=== PATIENT | male | born 1960 | race Caucasian/White ===

== ENCOUNTER 2022-02-04 13:16 | Inpatient (IN) | payer OTHER, SELFPAY ==
[~2022-02-04] VITALS: Ht 172.7 cm; Wt 110.7 kg
[2022-02-04 13:19] VITALS: BP 153/79
--- NOTE | 2022-02-04 13:43 | NUR ---
PATIENT PRESENTS TO ED WITH SPONTANEOUS, INVOLUNTARY MUSCLE MOVEMENTS OF HIS LEFT LEG AND LEFT ARM. PT STATES HE CANT CONTROL THEM. DENIES N/V/D; SKIN IS PINK/WARM/DRY; AAOX4 WITH EVEN; UNSTEADY GAIT; VSS; PATIENT POSITIONED FOR COMFORT; HOB ELEVATED; BEDRAILS UP X2; BED DOWN. ER MD MADE AWARE OF PT STATUS. MED HX: ARTHRITIS MEDS: PREGABALIN
[2022-02-04] MEDS ORDERED: diazePAM 5 MG TAB PO ONE (14:05)
--- NOTE | 2022-02-04 14:14 | NUR ---
DR PHAM AT BEDSIDE EXAMINING PT
[2022-02-04] MEDS ORDERED: diphenhydrAMINE 50 MG/ML VIAL IVP ONE (14:25)
[2022-02-04 14:41] LABS: APPEARANCE,URINE CLEAR (CLEAR); BILIRUBIN,URINE 2+ (NEGATIVE); BLOOD, URINE 2+ (NEGATIVE); LEUKOCYTE ESTERASE ,URINE NEGATIVE (NEGATIVE); NITRITE, URINE NEGATIVE (NEGATIVE); UGLUCOSE NEGATIVE (NEGATIVE)
--- NOTE | 2022-02-04 14:44 | NUR ---
LAB AT BEDSIDE
[2022-02-04 14:45] LABS: COLOR,URINE AMBER (YELLOW)
[2022-02-04 14:54] LABS: RBC,URINE 0-5 /HPF (0-5); WBC,URINE 0-5 /HPF (0-5)
[2022-02-04 14:55] LABS: BARBITURATE, URINE NEGATIVE ng/ml (NEG <=200); BENZODIAZEPINE, URINE NEGATIVE ng/mL (NEG <=200); CANNABINOID, URINE POSITIVE ng/mL (NEG <=50); COCAINE, URINE NEGATIVE ng/mL (NEG <=300); OPIATE, URINE NEGATIVE ng/mL (NEG <=2000); PHENCYCLIDINE SCREEN,URINE NEGATIVE ng/mL (NEG <=25)
[2022-02-04 14:56] LABS: BASOPHILS # (AUTO) 0.1 K/uL (0.00-0.22); BASOPHILS % (AUTO) 0.6 % (0.0-2.0); EOSINOPHILS # (AUTO) 0.1 K/uL (0-0.4); EOSINOPHILS % (AUTO) 0.6 % (0.0-4.0); HEMATOCRIT 40.6 % (36-52); LYMPHOCYTES # (AUTO) 2.3 K/uL (2.0-11.5); LYMPHOCYTES % (AUTO) 15.8 % (20.5-51.1); MEAN CORPUSCULAR HEMOGLOBIN 32 pg (27-31); MEAN CORPUSCULAR HGB CONC 34 g/dL (33-37); MEAN CORPUSCULAR VOLUME 92.6 fL (80-94); MONOCYTES # (AUTO) 1.6 K/uL (0.8-1.0); MONOCYTES % (AUTO) 11.3 % (1.7-9.3); NEUTROPHILS # (AUTO) 10.3 K/uL (1.8-7.7); NEUTROPHILS % (AUTO) 71.7 % (42.2-75.2); PLATELET COUNT (AUTO) 271 K/uL (140-450); RED BLOOD CELL COUNT(AUTO) 4.38 MIL/uL (4.20-6.10); WHITE BLOOD COUNT (AUTO) 14.4 K/uL (4.8-10.8)
--- NOTE | 2022-02-04 14:59 | NUR ---
PT TAKEN TO CT SCAN VIA [facility]
--- NOTE | 2022-02-04 15:09 | NUR ---
PT RETURNED FROM CT
[2022-02-04 15:10] LABS: ACETAMINOPHEN < 0.5 ug/ml (10-30); ALBUMIN 3.6 g/dL (3.4-5.0); ANION GAP 14.2 (8-16); ASPARTATE AMINOTRANSFERASE 289 U/L (15-37); CARBON DIOXIDE 24.6 mmol/L (21-32); CHLORIDE 103 mmol/L (98-107); CREATININE 1.1 mg/dL (0.6-1.3); GFR ARICAN-AMERICAN 88 mL/min (>90); GLUCOSE 111 mg/dL (74-106); POTASSIUM 3.8 mmol/L (3.5-5.1); SALICYLATE < 2.8 mg/dL (2.8-20.0); SODIUM SERUM 138 mmol/L (136-145); TOTAL BILIRUBIN 0.8 mg/dL (0.0-1.0); UREA NITROGEN, BLOOD 25 mg/dL (7-18)
[2022-02-04] MEDS ORDERED: LORazepam 2 MG/ML VIAL IVP ONE ×4 (15:45→22:35)
[2022-02-04] MEDS ORDERED: NACL 0.9% 500 ML IV ONE (15:45)
--- NOTE | 2022-02-04 16:30 | NUR ---
PATIENT STILL RESTLESS NOTIFIED
[2022-02-04] MEDS ORDERED: HALOPERIDOL IM 5 MG/ML VIAL IM ONE (16:40)
--- NOTE | 2022-02-04 17:00 | NUR ---
Patient was found on floor, on his knees at the head of the bed. Left arm abrasion noted. Ermd to bedside.
--- NOTE | 2022-02-04 17:01 | NUR ---
PT ASSISTED BACK TO BED AND REORIENTED. PT PLACED ON SEISMOLOGY TEACHER. AWAITING BED CLOSER TO NURSING STATION. RN AT BEDSIDE. SAFETY PRECAUTIONS IN PLACE.
--- NOTE | 2022-02-04 17:20 | NUR ---
MOVED TO ER BED 6
--- NOTE | 2022-02-04 17:21 | NUR ---
Abrasion cleaned with normal saline and wrapped with kerlix. Physician order given to place 4 point hard restraints to prevent harm to self. Pt under observation.
[2022-02-04] MEDS ORDERED: KETAMINE 500 MG/5 ML VIAL ONE ×2 (17:26→19:46)
[2022-02-04] MEDS ORDERED: KETAMINE 500 MG/5 ML VIAL IVP ONE (17:35)
[2022-02-04] MEDS ORDERED: MIDAZOLAM 5 MG/1 ML VIAL ONE (18:03)
[2022-02-04] MEDS ORDERED: MIDAZOLAM 5 MG/5 ML VIAL IV ONE (18:05)
[2022-02-04] MEDS ORDERED: KETAMINE 500 MG/5 ML VIAL IM ONE (18:25)
--- NOTE | 2022-02-04 18:25 | NUR ---
CALL RECEIVED FROM PT'S GIRLFRIEND GRETA [phone]. STATED WILL BE GOING HOME, CAN CALL HER TO EDGE SETTER PT.
[2022-02-04] MEDS ORDERED: ZIPRASIDONE MESYLATE 20 MG/ML VIAL IM ONE (18:45)
--- NOTE | 2022-02-04 19:24 | NUR ---
Pt report given to MERY BERMAN. Transfer of care at this time.
--- NOTE | 2022-02-04 20:00 | NUR ---
UPON RECIEVING REPORT PT WAS KICKING SCREAMING AGITATED. PT WAS CURSING AND YELLNG. DR. PHAM TO ORDER KETAMINE
--- NOTE | 2022-02-04 20:06 | NUR ---
PT GIVEN KETAMINE VIA IM. REASSESSED 5 MIN LATER AND SLIGHT IMPROVEMENT. PT STILL AGITATED BUT IS CALMING DOWN. CT TO ATTEMPT TO TAKE PATIENT.
[2022-02-04] MEDS ORDERED: NACL 0.9% 1,000 ML IV ONE (20:10)
--- NOTE | 2022-02-04 20:16 | NUR ---
SPOKE WITH SULTANA FORD FOR UPDATE ON PATIENT #[phone]
[2022-02-04] MEDS ORDERED: INTUBATION KIT MC ONE (20:29)
--- NOTE | 2022-02-04 20:30 | NUR ---
RECEIVED PT IN BED 10 PT IN KOLBY/L HARD RESTRAINTS. PT ALTERED, DOES NOT RESPOND TO QUESTIONS, PT MOVING STRONLGY/HARSHLY TO EDGES OF BED RAILS, SEIZURE PADDINGS ON BED REAIL X2 BED RAILS UP FOR PT SAFETY. PT TACHYPNEIC AND TACHYCARDIC ERMD AWARE OF PT STATUS AND VS. Addendum: 02/05/22 at 0039 by TEDDY PT SKIN TO KOLBY WRISTS AND BLE W REDNESS, AND OPEN SCRAPE LIKE WOUNDS.
--- NOTE | 2022-02-04 20:35 | NUR ---
PT BROUGHT BACK FROM CT VIA [facility] AND MOVED TO BED 10.
--- NOTE | 2022-02-04 20:57 | NUR ---
REPORT RECEIVED FROM ANTONELLA ORDONEZ. CONTINUITY OF PT CARE AT THIS TIME.
--- NOTE | 2022-02-04 22:33 | NUR ---
PT CONTINUES TO APPEAR AGGITATED, AND RESTLESS, AOX0, TACHYPNEIC AND TACHYCARDIC, ERMD MADE AWARE.
--- NOTE | 2022-02-04 22:40 | NUR ---
SPOKE W PT MOTHER SULTANA TO PROVIDE PT UPDATE.
--- NOTE | 2022-02-04 23:00 | NUR ---
RESTRAINTS CONTINUED AT THIS TIME, ERMD AWARE.
--- NOTE | 2022-02-04 23:10 | NUR ---
PT TACHYCARDIC 125, ERMD MADE AWARE.
--- NOTE | 2022-02-04 23:31 | NUR ---
PT TACHYCARDIC, TACHYPNEIC W LABORED BREATHING, PROFUSELY SWEATING ERMD MADE AWARE.
[2022-02-05] VITALS (12 sets, daily range): BP systolic 81–197; BP diastolic 50–95
[2022-02-05] MEDS ORDERED: PROPOFOL 1000 MG/100 ML PREMIX 100 ML IV ONE ×2 (00:15→01:15)
--- NOTE | 2022-02-05 00:15 | NUR ---
PT SEDATED, RESTRAINTS REMOVED.
--- NOTE | 2022-02-05 00:18 | NUR ---
PT INTUBATED BY UTILIZING 7.5 ETT, MEASURE AT 24 AT THE TEETH.
--- NOTE | 2022-02-05 00:30 | NUR ---
BEATRIS SAMPLE COLLECTED FROM PT NARES AND SENT TO LAB.
[2022-02-05] MEDS ORDERED: MAGNESIUM OXIDE 400 MG TAB PO PRN (01:10)
[2022-02-05] MEDS ORDERED: NACL 0.9% 1,000 ML IV SCH (01:10)
[2022-02-05] MEDS ORDERED: PIPERACILLIN/TAZOBACTAM 3.375 GM in DEXTROSE 5% 50 ML IV ONE (01:10)
[2022-02-05] MEDS ORDERED: KCL 20 MEQ/WATER INJ PREMIX 200 ML IV PRN (01:10)
[2022-02-05] MEDS ORDERED: MAG SULF 2000 MG/WATER PREMIX 50 ML IV PRN (01:10)
[2022-02-05] MEDS ORDERED: ACETAMINOPHEN 325 MG TAB PO PRN (01:10)
[2022-02-05] MEDS ORDERED: ONDANSETRON 4 MG/2 ML VIAL IVP PRN (01:10)
[2022-02-05] MEDS ORDERED: ROCURONIUM 50 MG/5 ML VIAL IV ONE (01:15)
[2022-02-05] MEDS ORDERED: ETOMIDATE 20 MG/10 ML VIAL IVP ONE (01:15)
[2022-02-05] MEDS ORDERED: PIPERACILLIN/TAZOBACTAM 3.375 GM VIAL IV ONE (02:01)
--- NOTE | 2022-02-05 02:22 | NUR ---
PT GAGGING AND AWAKENING. PROPOFOL INCREASED.
--- NOTE | 2022-02-05 02:35 | NUR ---
PT BP95/45, QUAHOGGER PAGED, AWAITING RESPONSE. Addendum: 02/05/22 at 0236 by KASSIDYK CURRENT VENT SETTINGS AT AC VC, FiO2 40%, 500ML, RATE 14, PEEP 5.
--- NOTE | 2022-02-05 02:43 | NUR ---
SPOKE W DR. FALCON, PER ADMIN 500NS BOLUS.
[2022-02-05] MEDS ORDERED: NACL 0.9% 500 ML IV SCH (02:50)
[2022-02-05] MEDS ORDERED: NACL 0.9% 500 ML IV ONE (02:50)
--- NOTE | 2022-02-05 03:02 | NUR ---
Pt report given to TINA BURNS. Transfer of care at this time.
--- NOTE | 2022-02-05 03:25 | NUR ---
Donta lau in [facility] - 02/05/22 at 0327 by TEDDY G TUBE INSERTED, CONFIRMED THROUGH AUSCULTATION.
--- NOTE | 2022-02-05 03:27 | NUR ---
NG TUBE INSERTED, CONFIRMED THROUGH AUSCULTATION.
--- NOTE | 2022-02-05 03:45 | NUR ---
Patient will be admitted to care of DR ANSARI . Admited to ICU . Will go to room ICU 3. Belongings list completed.
--- NOTE | 2022-02-05 03:55 | NUR ---
ADMITTED THIS 61 YEAR OLD MALE PATIENT FROM ER PER [facility] WITH THE ADMITTING DIAGNOSIS OF ACUTE ENCEPHALOPATY WITH C/O OF LEFT FOOT PAIN AND WITH INVOLUNTARY MOVEMENT OF LEFT UPPER AND LOWER EXTREMITIES. PLACED IN ICU 3, HOOKED TO PARKING LOT SIGNALER, SCOPES SHOWS ON SINUS RHYTHM HR 96/MIN. SEDATED WITH CONTINOUS PROPOFOL DRIP AT 10 MCG/KG/MIN THEN TITRATED UP PER PROTOCOL TO KEEP RASS-3. ORALLY INTUBATED AND VENTILATED AT 30% FIO2.
--- NOTE | 2022-02-05 04:00 | NUR ---
IVF IN PROGRESS NORMAL SALINE AT 80 ML/HR VIA G 18 IV CANNULA ON RIGHT HAND; PATENT AND INTACT.
--- NOTE | 2022-02-05 04:04 | NUR ---
The patient's care was reviewed and supervised by Kate Tate RN.
--- NOTE | 2022-02-05 04:15 | NUR ---
NGT IN SITU; KEPT NPO ORDERED. MELO CATH INSERTED ASEPTICALLY; URINE SAMPLE SENT TO LAB FOR C/S.
--- NOTE | 2022-02-05 04:48 | NUR ---
0405 SPUTUM UPTAINED AND SENT TO LAB
[2022-02-05 06:01] LABS: ALBUMIN 3.1 g/dL (3.4-5.0); ANION GAP 17.1 (8-16); CARBON DIOXIDE 22.2 mmol/L (21-32); CREATININE 1.5 mg/dL (0.6-1.3); MAGNESIUM 2.3 mg/dL (1.8-2.4); POTASSIUM 4.3 mmol/L (3.5-5.1); TOTAL BILIRUBIN 0.7 mg/dL (0.0-1.0)
[2022-02-05 06:29] LABS: BASOPHILS % (AUTO) 0.2 % (0.0-2.0); HEMATOCRIT 37.4 % (36-52); HEMOGLOBIN 12.6 g/dL (12.0-18.0); LYMPHOCYTES # (AUTO) 1.7 K/uL (2.0-11.5); LYMPHOCYTES % (AUTO) 10.8 % (20.5-51.1); MEAN CORPUSCULAR HEMOGLOBIN 32 pg (27-31); MEAN CORPUSCULAR HGB CONC 34 g/dL (33-37); MEAN CORPUSCULAR VOLUME 95.1 fL (80-94); MONOCYTES % (AUTO) 12.8 % (1.7-9.3); NEUTROPHILS # (AUTO) 11.8 K/uL (1.8-7.7); NEUTROPHILS % (AUTO) 76.2 % (42.2-75.2); PLATELET COUNT (AUTO) 235 K/uL (140-450); RED BLOOD CELL COUNT(AUTO) 3.93 MIL/uL (4.20-6.10); RED CELL DISTRIBUTION WIDTH 13.2 % (11.6-13.7); WHITE BLOOD COUNT (AUTO) 15.4 K/uL (4.8-10.8)
[2022-02-05] MEDS: PIPERACILLIN/TAZOBACTAM 2.25 GM in DEXTROSE 5% 50 ML IV SCH ×3 (06:30→20:57)
[2022-02-05] MEDS ORDERED: PIPERACILLIN/TAZOBACTAM 2.25 GM VIAL IV ONE (06:47)
--- NOTE | 2022-02-05 07:22 | NUR ---
RECEIVED REPORT FROM TINA BURNS.
--- NOTE | 2022-02-05 08:00 | NUR ---
PATIENT SEDATED. PUPILS 2MM PINPOINT. SPONTANEOUS MOVEMENT INTERMITTENTLY. NO COMMANDS FOLLOWED. PROPOFOL AT 40MCG/KG/MIN LEFT AC, NS AT 80ML/HR RIGHT HAND. SKIN ABRASION LEFT POSTERIOR FORARM AND LEFT ELBOW. REDDENED AREA LEFT KNEE. +DP AND PT PULSES BILATERALLY. LEFT LEG AND FOOT WARM TO TOUCH COMPARED TO RIGHT. LEFT FOOT REDDENED. HEART SOUNDS REGULAR. MONITOR SR. INTUBATED ETT. VENT AC/VC FIO2 .30/VT500/RATE 15/PEEP 5. ANTERIOR/LATERAL BREATH SOUNDS CLEAR TO AUSCULTATION, DIMINISHED RIGHT BASE. SAO2 94%. HYPOACTIVE BOWEL SOUNDS. ABDOMEN ROUND AND SOFT. NGT LEFT NARE CLAMPED. PLACEMENT AUSCULTATED. MELO WITH YELLOW URINE.
[2022-02-05] MEDS ORDERED: ENOXAPARIN 40 MG/0.4 ML SYR SUBQ SCH (09:00)
[2022-02-05] MEDS: PANTOPRAZOLE 40 MG INJ VIAL IVP SCH (09:16)
--- NOTE | 2022-02-05 10:13 | NUR ---
PATIENT HAS BEEN SCREENED AND CATEGORIZED HIGH NUTRITION RISK. PATIENT WILL BE SEEN WITHIN 1-2 DAYS OF ADMISSION. / MIGDALIA FINNEY RD
--- NOTE | 2022-02-05 11:30 | NUR ---
RECEIVED ORDER FOR MIDLINE PLACEMENT DR. ANSARI.
--- NOTE | 2022-02-05 11:59 | NUR ---
02/05/22 RD INITIAL ASSESSMENT COMPLETED PLEASE REFER TO NUTRITION ASSESSMENT UNDER CARE ACTIVITY FOR ESTIMATED NUTRITIONAL NEEDS. 1. WHEN/IF MEDICALLY APPROPRIATE, RECOMMEND NEPRO WITH A GOAL RATE OF 30 ML/HR -FWF: 100 ML Q4H OR PER MD -START AT 10 ML/HR AND INCREASE BY 10 ML Q4H TOLERATED -WILL PROVIDE 1296 KCAL AND 58 GM PROTEIN; WITH PROPOFOL, PT WILL RECEIVE > 75% ESTIMATED KCAL AND 100% ESTIMATED PROTEIN NEEDS 2. MONITOR NUTRITION-RELATED LAB VALUES 3. RD TO FOLLOW-UP 2-3 DAYS, HIGH RISK MIGDALIA FINNEY RD
--- NOTE | 2022-02-05 12:05 | NUR ---
DC PLANNIN YES OLD MALE PATIENT WAS ADMITTED FROM HOME WITH A DX OF ACUTE ENCEPHALOPATHY. PATIENT HAS A HX OF METH USE, ARTHRITIS. CXR SHOWED RT BASILAR ATELECTASIS. CT HEAD NO EVIDENCE OF INTRACRANIAL HEMORRHAGE ACUTE INFRACT OR MASS EFFECT.RAPID COVID TEST NEGATIVE. BLOOD AND SPUTUM CULTURE PENDING. INTUBATED SEDATED FIO2 30% . ON PROPOFOL DRIP, IV AND IV ABX ZOSYN. CONSULTED WITH [facility]. DC PLAN PER PATIENT RESPOND TO THE TREATMENT. CM TO FOLLOW Addendum: 02/06/22 at 1203 by Margy Gotti RN DC PLANNING: SEEN BY [facility], AGITATED ON MAXIMUM RATE OF PROPOFOL AND PRECEDEX DRIP, INTUBATED SEDATED FIO2 30% CONTINUE IV VANCOMYCIN AND ZOSYN. URINE AND SPUTUM CULTURE PENDING. DC PLANNING PER PT RESPOND TO THE TREATMENT. Addendum: 02/13/22 at 1453 by Margy Gotti RN DC PLANNING: PATIENT STILL CONFUSING ON PRECEDEX 4MCG/ML DRIP, CONTINUE IV ABX VANCOMYCIN AND ZOSYN PULMO FOLLOWING. CM TO FOLLOW Addendum: 02/22/22 at 1111 by Margy Gotti RN LATE ENTRY 02/19/22 CALLED [facility], SPOKE WITH STEVEN DISCUSSED THE RECOMMENDATION FOR INPT PSYCH FAXED ALL PAPERWORK, AWAITING FOR PSYCH EVALUATION. PATIENT IS STILL CONFUSED UNABLE TO FOLLOW CONVERSATION ,AGITATED ON RESTRAINTS AND ON ZYPREXA, LIBRIUM AND SEROQUEL. CM TO FOLLOW Addendum: 02/22/22 at 1121 by Margy Gotti RN DC PLANNING: CALLED [facility] SPOKE WITH ADMIN STATED THEY ARE AT THEIR CAPACITY, ON WAITING LIST, THEIR PRIORITY IS TO TAKE PATIENT FROM [facility], AND NEXT [place]. CM TO FOLLOW Addendum: 02/22/22 at 1436 by Margy Gotti RN DC PLANNING: EVALUATION DONE BY TELE PSYCH RECOMMENDATION IS TO DC SEROQUEL AND INCREASE ZYPREXA 2.5 MG PO BID AND ADD BENZTROPINE O.5MG PO BID. PT STILL IRRITABLE AND RESTLESS. CM TO FOLLOW Addendum: 03/01/22 at 1050 by Margy Gotti RN DC PLANNING: CT HEAD SHOWED NO ACUTE INTRACRANIAL HEMORRHAGE. SEEN BY NEUROLOGIST DR HATFIELD RECOMMENDED THORAZINE 100MG Q4HRS PRN AND PHENERGAN AND WILL FOLLOW UP WITHIN 24 HRS. STILL ON RESTRAINTS, AGITATED AND CONFUSED. DC PLAN PER PT RESPOND TO THE TREATMENT. CM TO FOLLOW Addendum: 03/05/22 at 1424 by Margy Gotti RN DC PLANNING: PATIENT REMAIN THE SAME,1:1 OBSERVATION, ON BILATERAL SOFT RESTRAINTS, ON THORAZINE IM, PHENERGAN IM AND HALDOL PO. AWAITING FOR NEUROLOGIST TO EVALUATE PATIENT. DC PLAN TO GO HOME WHEN STABLE. CM TO FOLLOW. Addendum: 03/06/22 at 1546 by Margy Gotti RN DC PLANNING: CALLED DR LANCASTER NEUROLOGIST REGARDING THE RE EVALUATION. DR LANCASTER STATED HE REVIEWED THE CASE AND DOESN'T SEEM LIKE HE HAS A PRIMARY NEUROLOGICAL PROBLEM, WILL COME SEE PATIENT TOMORROW Addendum: 03/12/22 at 1557 by Margy Gotti RN LATE ENTRY: 03/07/22 DR LANCASTER SEEN PATIENT STATED NO EVIDENCE OF PRIMARY NEUROLOGICAL DISORDER AND DEFER MANAGEMENT TO PSYCHIATRY AND SIGN OFF THE CASE. CONTINUE IV ABX ROCEPHIN ,SEROQUEL AND ZYPREXA. STILL CONFUSED AND UNABLE TO FOLLOW COMMAND. FAMILY (GIRLFRIEND) VISITING IN DAILY BASIS) CM TO FOLLOW Addendum: 03/12/22 at 1601 by Margy Gotti RN DC PLANNING: PATIENT OFF RESTRAINTS SINCE 03/11/22 ,CONTINUE ALL PSYCH MEDS. SLEEPY LESS AGITATED SITTER AT THE BED SIDE FOR SAFETY. DC PLAN TO GO HOME WITH FAMILY WHEN STABLE. CM TO FOLLOW Addendum: 03/13/22 at 1523 by Margy Gotti RN DC PLANNING: PATIENT APPEARED TO BE CALM ,NO AGITATION BUT STILL SLEEPY UNABLE TO CONTINUE CONVERSATION . CALLED PATIENT SIGNIFICANT OTHER [phone] GRETA LEFT A MESSAGE ON HER VOICE MAIL. CM TO FOLLOW Addendum: 03/15/22 at 1147 by Margy Gotti RN DC PLANNING: RECEIVED A CALL FROM ROSEANN [facility]ILL[facility]S GIRLFRIEND [phone] DISCUSSED A DC PLAN FOR PATIENT, ROSEANN STATED SHE WOULD LOVE TO TAKE HIM HOME AND TAKE CARE OF HIM HOWEVER SHE HAS TO DISCUSS WITH HIS MOTHER AND CALL BACK. CM TO FOLLOW
--- NOTE | 2022-02-05 12:30 | NUR ---
DR. PARIKH HERE TO SEE PATIENT. ORDERS RECEIVED. US LEFT LOWER EXTREMITY FOR EVALUATION OF RED WARM LEG. TOTAL CK ORDERED. TF NEPRO ORDERED.
[2022-02-05] MEDS ORDERED: VANCOMYCIN PER PHARMACY MC PRN (13:35)
[2022-02-05] MEDS ORDERED: VANCOMYCIN 1,500 MG in DEXTROSE 5% 500 ML IV SCH (15:00)
--- NOTE | 2022-02-05 16:45 | NUR ---
NOTIFIED DR. PARIKH OF ELEVATED CK TOTAL. ORDERS RECEIVED. IVF CHANGE TO LR AT 125ML/HR. RECHECK CK IN AM. TF STARTED AT 10ML/HR NEPRO. GOAL RATE 30ML/HR. TO INCREASE 10ML EVERY 4HOUR UNTIL AT GOAL.
[2022-02-05] MEDS: LACTATED RINGERS 1,000 ML IV SCH (17:40)
[2022-02-05 18:08] LABS: CKMB RELATIVE INDEX 0.2 (0.0-2.5); CREATINE KINASE MB 33.5 ng/mL (0-3.6)
--- NOTE | 2022-02-05 18:30 | NUR ---
INCREASING AGITATION. INCREASED PROPOFOL TO 42MCG/KG/MIN.
--- NOTE | 2022-02-05 18:49 | NUR ---
PT PRESENTS LAYING IN BED ASLEEP, NOT ALERT, AND AGITATED. RECEIVED PT INTUBATED WITH 7.5mm ETT 24cm @ THE LIP ON A GE CARESCAPE R860 VENTILATOR SETTINGS AC RR14, VT500, PEEP +5, FIO2 40%. NO SIGNS OF RESPIRATORY DISTRESS NOTED AT THIS TIME PT'S CURRENT SATURATION IS 92%. ANTERIOR AUSCULTATION REVEALED BS COARSE CRACKLES AT APICES CLEAR DIMINISHED AT BASES, SX SCANT PALE/YELLOW THICK SECRETIONS. ORAL CARE DONE, HOB ELEVATED, BAG VALVE MASK AT BEDSIDE, VENT PLUGGED INTO RED OUTLET. WILL CONTINUE TO MONITOR.
--- NOTE | 2022-02-05 19:30 | NUR ---
INCREASING AGITATION. PROPOFOL INCREASED TO 45MCG/KG/MIN. MORPHINE 2MG IVP GIVEN. REPORT GIVEN TO TINA HANSEN.
--- NOTE | 2022-02-05 19:32 | NUR ---
RECEIVED REPORT FROM TD WILDER FEBR[facility]ARY FOR CONTINUITY OF CARE
[2022-02-05] MEDS: MORPHINE SULFATE 4 MG/ML SYR IVP PRN (19:58)
--- NOTE | 2022-02-05 21:32 | NUR ---
SCHEDULED MEDS ADMINISTERED ORDER. NADR NOTED. VSS. NO S/S OF DISTRESS NOTED. WILL CONTINUE TO MONITOR.
[2022-02-06] VITALS (14 sets, daily range): BP systolic 89–163; BP diastolic 46–87
[2022-02-06] MEDS: PROPOFOL 1000 MG/100 ML PREMIX 100 ML IV PRN ×8 (00:25→23:01)
--- NOTE | 2022-02-06 00:31 | NUR ---
PT OBSERVED. LAYING IN BED WITH EYES CLOSED. CHEST RISE AND FALL PRESENT. NO S/S OF RESP DISTRESS NOTED. SAFETY MEASURES IN PLACE. BED IN LOWEST POSITION WITH CALL LIGHT IN REACH. WILL CONTINUE TO MONITOR.
[2022-02-06] MEDS: LACTATED RINGERS 1,000 ML IV SCH ×4 (01:00→23:56)
--- NOTE | 2022-02-06 02:02 | NUR ---
PT OBSERVED. 0 RESIDUAL NOTED FROM NGT. ORDERS TO INCREASE FEEDING BY 10ML Q4H TOLERATED. PT FEEDING INCREASED FROM 10 ML TO 20ML ORDERED. PT TOLERATING WELL. WILL CONTINUE TO MONITOR. Addendum: 02/06/22 at 0207 by Ryan Gallo RN PT TURNED AND REPOSITIONED
[2022-02-06] MEDS: PIPERACILLIN/TAZOBACTAM 2.25 GM in DEXTROSE 5% 50 ML IV SCH ×3 (05:06→22:45)
[2022-02-06 05:48] LABS: ALBUMIN 2.7 g/dL (3.4-5.0); ANION GAP 11.8 (8-16); CARBON DIOXIDE 23.8 mmol/L (21-32); CREATININE 0.9 mg/dL (0.6-1.3); MAGNESIUM 2.2 mg/dL (1.8-2.4); POTASSIUM 3.6 mmol/L (3.5-5.1); TOTAL BILIRUBIN 0.5 mg/dL (0.0-1.0)
--- NOTE | 2022-02-06 06:03 | NUR ---
NEPRO FEEDING INCREASED TO 30ML/HR WITH 100ML WATER FLUSH Q4H ORDERED. PT TOLERATING WELL. WILL CONTINUE TO MONITOR.
[2022-02-06 06:06] LABS: BASOPHILS # (AUTO) 0.1 K/uL (0.00-0.22); BASOPHILS % (AUTO) 0.3 % (0.0-2.0); EOSINOPHILS # (AUTO) 0.2 K/uL (0-0.4); EOSINOPHILS % (AUTO) 1.1 % (0.0-4.0); HEMATOCRIT 34.4 % (36-52); HEMOGLOBIN 11.7 g/dL (12.0-18.0); LYMPHOCYTES # (AUTO) 1.3 K/uL (2.0-11.5); LYMPHOCYTES % (AUTO) 8.8 % (20.5-51.1); MEAN CORPUSCULAR HEMOGLOBIN 32 pg (27-31); MEAN CORPUSCULAR HGB CONC 34 g/dL (33-37); MEAN CORPUSCULAR VOLUME 94.6 fL (80-94); MONOCYTES # (AUTO) 1.6 K/uL (0.8-1.0); MONOCYTES % (AUTO) 11.1 % (1.7-9.3); NEUTROPHILS # (AUTO) 11.7 K/uL (1.8-7.7); NEUTROPHILS % (AUTO) 78.7 % (42.2-75.2); PLATELET COUNT (AUTO) 208 K/uL (140-450); RED BLOOD CELL COUNT(AUTO) 3.64 MIL/uL (4.20-6.10); RED CELL DISTRIBUTION WIDTH 13.4 % (11.6-13.7); WHITE BLOOD COUNT (AUTO) 14.9 K/uL (4.8-10.8)
--- NOTE | 2022-02-06 07:15 | NUR ---
RECEIVED REPORT FROM SALES PROCESS MANAGER NURSE. PT IS RESTLESS AND MOVING ALL EXTREMITIES IN BED. PT HAS A RIGHT MIDLINE RUNNING 45MCG/KG/MIN AND LR AT 125ML/HR. PT IS INTUBATED SETTINGS ARE AC/ VC 30%, TV 500, RATE 14 AND PEEP 5. NG TUBE ON LEFT NARE RUNNING NEPRO AT 30 ML/HR WITH WATER FLUSHES OF [address] WITH RED URINE PRESENT. PT HAS WOUND ON LEFT FORE ARM WITH DRESSING PLACED. CSD ON BILATERAL LOWER LEGS. ALL SAFETY PRECAUTIONS IN PLACE.
--- NOTE | 2022-02-06 07:35 | NUR ---
REPORT GIVEN TO DAYSHIFT RN AT BEDSIDE FOR CONTINUITY OF CARE.
[2022-02-06] MEDS: MORPHINE SULFATE 4 MG/ML SYR IVP PRN (08:25)
--- NOTE | 2022-02-06 08:30 | NUR ---
DR. PARIKH ON BEDSIDE AND ASSESSING PT. DR. PARIKH WAS INFORMED OF PT DISTRESS AND RED URINE. AWAITING ORDERS.
[2022-02-06] MEDS: PANTOPRAZOLE 40 MG INJ VIAL IVP SCH (09:39)
[2022-02-06] MEDS: VANCOMYCIN HCL 1.25 GM in DEXTROSE 5% 250 ML IV SCH ×2 (09:39→21:00)
[2022-02-06] MEDS ORDERED: DEXMEDETOMIDINE HCL 400 MCG in NACL 0.9% 96 ML IV PRN (09:50)
--- NOTE | 2022-02-06 10:16 | NUR ---
PT. WITH LOW BRET SCALE AT HIGH RISK, CONTINUE TO FOLLOW PRESSURE INJURY PREVENTION INTERVENTIONS. MULTIPLE SKIN TEARS TO LEFT UPPER EXTREMITY COVERED WITH VERSATEL DRESSING, AREAS CLEAN RECOMMENDATIONS: -APPLY VERSATEL DRESSING TO LEFT UPPER EXTREMITY WEEKLY AND PRN IF SOILING -POSITIONING: TURN AND REPOSITION PATIENT Q 2H OR SOONER USE PILLOWS TO KEEP BONY PROMINENCES FROM DIRECT CONTACT WITH SURFACES USE REPOSITIONING WEDGES TO PROVIDE 30-DEGREE ANGLE FOR SIDE LYING POSITIONS OFFLOADING OR FOAM DRESSING TO ALL TUBING TO PREVENT MEDICAL DEVICES RELATED PRESSURE INJURY -RE-ASSESS Q SHIFT AND MANAGING INCONTINENCE MONITOR SKIN CONDITION DURING POSITION CHANGE DO NOT MASSAGE REDNESS, BONY PROMINENCES, DO NOT USE DONUT-TYPE DEVICES FREQUENT NELSON-CARE AND PROVIDE BARRIER CREAMS PRN IF SOILING MOISTURE CONTROL BY OFFER BED AREVALO/URINAL /ABSORBENT PAD TO WICK AND HOLD MOISTURE. KEEP SKIN DRY AND PROTECT FROM FRICTION -MANAGE FRICTION/SHEAR/MOBILITY KEEP HOB AT THE LOWEST LEVEL OF ELEVATION NO MORE THAN 30 DEGREE UNLESS OTHERWISE CONTRAINDICATED USE LIFT SHEET OR TRANSFER DEVICE TO MOVE PATIENT AND PREVENT LATERAL SHEER. PROTECT HEELS, ELBOWS BONY PROMINENCES WITH SKIN BERRIES OR FOAM DRESSING IF EXPOSED TO FRICTION OFFLOAD BILATERAL HEELS BY PLACING PILLOWS UNDER CALVES AT ALL TIMES, UNLESS OTHERWISE CONTRAINDICATED -PRESSURE REDISTRIBUTION SURFACE THERAPY -NUTRITION: PLEASE FOLLOW RD RECOMMENDATIONS AND OFFER NUTRITION SUPPLEMENTS IF ORDERED. PLEASE CONTACT WOUND CARE NURSE FOR ANY QUESTION AND CHANGE OF WOUND CONDITION.
--- NOTE | 2022-02-06 10:48 | NUR ---
PER MD ORDERS PT WAS STARTED ON PRECEDEX. WILL TITRATE ACCORDING TO PROTOCOL.
--- NOTE | 2022-02-06 11:00 | NUR ---
DR. HAN ON BEDSIDE AND ASSESSING PT.
--- NOTE | 2022-02-06 13:00 | NUR ---
PT MOTHER CALLED VIA PHONE.
--- NOTE | 2022-02-06 19:26 | NUR ---
RECEIVED PT INTUBATED WITH 7.5mm ETT 24cm @ LIP ON A Olymp[employer] Media GroupSCAPE R860 VENTILATOR SETTINGS AC RR14, VT500, PEEP +5, FIO2 30%. NO SIGNS OF RESPIRATORY DISTRESS NOTED AT THIS TIME PT'S CURRENT SATURATION IS 99%. ANTERIOR AUSCULTATION REVEALED BS CLEAR DIMINISHED AT BASES, NO SX AT THIS TIME PT HEMODYNAMICALLY UNSTABLE. ORAL CARE DONE, HOB ELEVATED, BAG VALVE MASK AT BEDSIDE, VENT PLUGGED INTO RED OUTLET. WILL CONTINUE TO MONITOR.
--- NOTE | 2022-02-06 19:30 | NUR ---
ENDORSED CARE TO AUTOMATIC CLIPPER AND STRIPPER NURSE FOR CONTINUITY OF CARE.
[2022-02-06] MEDS ORDERED: DOPamine 400 MG/D5W PREMIX 250 ML IV PRN (20:05)
[2022-02-06] MEDS: LORazepam 2 MG/ML VIAL IM/IVP PRN (20:05)
[2022-02-06] MEDS ORDERED: NACL 0.9% 500 ML IV ONE (20:05)
[2022-02-06] MEDS ORDERED: PIPERACILLIN/TAZOBACTAM 2.25 GM VIAL IV ONE (22:32)
[2022-02-07] VITALS (29 sets, daily range): BP systolic 90–149; BP diastolic 55–95
[2022-02-07] MEDS: LORazepam 2 MG/ML VIAL IM/IVP PRN (03:40)
--- NOTE | 2022-02-07 03:40 | NUR ---
PT RASS +2, PRN ATIVAN GIVEN. WILL CONTINUE TO MONITOR.
[2022-02-07] MEDS ORDERED: PIPERACILLIN/TAZOBACTAM 2.25 GM VIAL IV ONE (05:37)
[2022-02-07] MEDS: PROPOFOL 1000 MG/100 ML PREMIX 100 ML IV PRN ×6 (05:45→17:30)
[2022-02-07] MEDS: PIPERACILLIN/TAZOBACTAM 2.25 GM in DEXTROSE 5% 50 ML IV SCH ×3 (05:52→20:02)
[2022-02-07 06:30] LABS: BASOPHILS % (AUTO) 0.3 % (0.0-2.0); EOSINOPHILS # (AUTO) 0.3 K/uL (0-0.4); EOSINOPHILS % (AUTO) 2.6 % (0.0-4.0); HEMATOCRIT 33.1 % (36-52); HEMOGLOBIN 11.2 g/dL (12.0-18.0); LYMPHOCYTES # (AUTO) 1.4 K/uL (2.0-11.5); LYMPHOCYTES % (AUTO) 10.6 % (20.5-51.1); MEAN CORPUSCULAR HEMOGLOBIN 32 pg (27-31); MEAN CORPUSCULAR HGB CONC 34 g/dL (33-37); MEAN CORPUSCULAR VOLUME 94.3 fL (80-94); MONOCYTES # (AUTO) 1.4 K/uL (0.8-1.0); MONOCYTES % (AUTO) 10.7 % (1.7-9.3); NEUTROPHILS # (AUTO) 10.1 K/uL (1.8-7.7); NEUTROPHILS % (AUTO) 75.8 % (42.2-75.2); PLATELET COUNT (AUTO) 206 K/uL (140-450); RED CELL DISTRIBUTION WIDTH 13.6 % (11.6-13.7); WHITE BLOOD COUNT (AUTO) 13.3 K/uL (4.8-10.8)
--- NOTE | 2022-02-07 07:15 | NUR ---
RECEIVED BEDSIDE REPORT [facility] FOR CONTINUITY OF CARE. PT IN THE BED, SEDATED RASS -3. ETT TO VENT, ACVC, FIO2 30%, VT 500, R 14, PEEP 5. SR ON THE MONITOR. NGT TO TUBE FEEDING, INFUSING NEPRO AT 30 ML/HR W/ 100 ML Q6H H2O. F/C IN PLACE DRAINING TO GRAVITY. SARAHI MIDLINE IN PLACE, NO S/S, INFUSING PROPOFOL AT 65 [facility]/KG/MIN, LR AT 125 ML/HR, AND PRECEDEX ON STANDBY. SKIN NOT INTACT, LFA VERSATEL IN PLACE, SARAHI VERSATEL IN PLACE. GENERALIZED WEAKNESS. ON STANDARD PRECAUTIONS. ALL SAFETY PRECAUTIONS MET. INITIAL ASSESSMENT COMPLETE, WILL CONTINUE TO CLOSELY MONITOR.
[2022-02-07] MEDS: LACTATED RINGERS 1,000 ML IV SCH (08:26)
[2022-02-07] MEDS: PANTOPRAZOLE 40 MG INJ VIAL IVP SCH (08:26)
--- NOTE | 2022-02-07 09:00 | NUR ---
SEEN AND EXAMINED BY DR PARIKH. ORDERS RECEIVED.
[2022-02-07] MEDS: VANCOMYCIN HCL 1.25 GM in DEXTROSE 5% 250 ML IV SCH ×2 (09:12→21:09)
--- NOTE | 2022-02-07 11:00 | NUR ---
PT RESTING COMFORTABLY. NO DISTRESS NOTED. WILL CONTINUE TO CLOSELY MONITOR.
[2022-02-07 11:09] LABS: ALBUMIN 2.4 g/dL (3.4-5.0); CARBON DIOXIDE 21.5 mmol/L (21-32); CREATININE 0.9 mg/dL (0.6-1.3); MAGNESIUM 2.1 mg/dL (1.8-2.4); POTASSIUM 3.5 mmol/L (3.5-5.1); TOTAL BILIRUBIN 0.4 mg/dL (0.0-1.0)
[2022-02-07] MEDS ORDERED: fentaNYL citrate 0.05 MG/ML VIAL IVP SCH (11:10)
--- NOTE | 2022-02-07 13:00 | NUR ---
RESPIRATIONS EVEN AND UNLABORED. NO ACUTE DISTRESS NOTED. WILL CONTINUE TO CLOSELY MONITOR.
--- NOTE | 2022-02-07 15:00 | NUR ---
PT SEDATED, RASS -3. EYES CLOSED. SUPINE IN THE BED. WILL CONTINUE TO CLOSELY MONITOR.
--- NOTE | 2022-02-07 15:03 | NUR ---
02/07/22 RD FOLLOW UP COMPLETED PLEASE REFER TO NUTRITION ASSESSMENT UNDER CARE ACTIVITY FOR ESTIMATED NUTRITIONAL NEEDS. 1. CONTINUE NEPRO @ 30 ML/HR TOLERATED -FWF: 100 ML Q4H OR PER MD -PROVIDES 1296 KCAL AND 58 GM PROTEIN; WITH PROPOFOL, PT RECEIVES 100% ESTIMATED KCAL PROTEIN NEEDS 2. MONITOR NUTRITION-RELATED LAB VALUES 3. RD TO FOLLOW-UP 2-3 DAYS, HIGH RISK MIGDALIA FINNEY RD
--- NOTE | 2022-02-07 15:40 | NUR ---
SEEN AND EXAMINED BY DR ANSARI.
--- NOTE | 2022-02-07 18:00 | NUR ---
PT CLEANED AND REPOSITIONED. TOLERATED WELL. NO STOOL NOTED. WILL CONTINUE TO CLOSELY MONITOR. EMPTIED F/C. 1700 ML OF CLEAR GREEN/YELLOW URINE NOTED.
--- NOTE | 2022-02-07 19:18 | NUR ---
ENDORSED BEDSIDE REPORT TO [facility] JADA RN FOR CONTINUITY OF CARE.
--- NOTE | 2022-02-07 19:21 | NUR ---
REPORT RECEIVED FROM MELO WILDER FOR CONTINUITY OF CARE
--- NOTE | 2022-02-07 19:30 | NUR ---
RECEIVED PATIENT FROM [facility]. PATIENT CURRENTLY INTUBATED AND SEDATED LYING SUPINE IN SEMI FOWLERS POSITIONING. INTUBATED VIA ET TUBE VENT SETTINGS ACVC WITH FIO2 30% TV 500 R 14 PEEP 5 WITH O2 SATURATION AT 95%. PATIENT RAAS +2 WITH NON-PURPOSEFUL MOVEMENT AND AGITATION. NG TUBE TO LEFT NARE INFUSING NEPRO AT 30 ML/HR. LEFT MIDLINE PRESENT AND INFUSING PROPOFOL AT 65ML/HR AND LACTATED RINGERS AT 5ML/HR. PATIENT HAS MELO CATHETER THAT IS PRESENT AND PATENT. SCD ARE PRESENT BILATERALLY. PATIENT DOESN'T APPEAR TO BE IN ANY DISTRESS AT THIS TIME. WILL CONTINUE TO MONITOR.
--- NOTE | 2022-02-07 19:32 | NUR ---
RT AT BEDSIDE ADMINISTERING TREATMENT
--- NOTE | 2022-02-07 19:45 | NUR ---
RECEIVED PATIENT FROM DAYSKYFT RN. PATIENT CURRENTLY RESTING IN BED IN LOW FOWLERS POSITIONING. WHEN AWAKE PATIENT IS A/Ox4 BUT IS CURRENTLY DROWSY DUE TO "NO SLEEP LAST NIGHT". RECEIVING OXYGEN THERAPY AT 3LNC WITH O2 SATURATION AT 95%. ACCESS INCLUDE: RIGHT IJ AND LEFT FEMORAL LINE INFUSING LEVOPHED AT 12 MCG/MIN AND NS AT 5ML/HR. MELO CATHETER IS PRESENT AND PATENT WITH NO URINE IN DRAINAGE POUCH. PATIENT DOES NOT APPEAR TO BE IN ANY DISTRESS OR PAIN AT THIS TIME. WILL CONTINUE TO MONITOR.
--- NOTE | 2022-02-07 23:26 | NUR ---
RT AT BEDSIDE ADMINISTERING TREATMENTS
[2022-02-08] VITALS (25 sets, daily range): BP systolic 108–187; BP diastolic 60–138
--- NOTE | 2022-02-08 04:19 | NUR ---
RT AT BEDSIDE ADMINISTERING TREATMENT. FIO2 INCREASED FROM 30 TO 35%
[2022-02-08] MEDS: PIPERACILLIN/TAZOBACTAM 2.25 GM in DEXTROSE 5% 50 ML IV SCH ×3 (05:43→20:15)
[2022-02-08 05:52] LABS: BASOPHILS % (AUTO) 0.5 % (0.0-2.0); EOSINOPHILS # (AUTO) 0.4 K/uL (0-0.4); EOSINOPHILS % (AUTO) 3.4 % (0.0-4.0); HEMATOCRIT 33.6 % (36-52); HEMOGLOBIN 11.6 g/dL (12.0-18.0); LYMPHOCYTES # (AUTO) 1.2 K/uL (2.0-11.5); LYMPHOCYTES % (AUTO) 10.6 % (20.5-51.1); MEAN CORPUSCULAR HEMOGLOBIN 33 pg (27-31); MEAN CORPUSCULAR HGB CONC 35 g/dL (33-37); MEAN CORPUSCULAR VOLUME 94.4 fL (80-94); MONOCYTES # (AUTO) 1.1 K/uL (0.8-1.0); NEUTROPHILS # (AUTO) 8.3 K/uL (1.8-7.7); NEUTROPHILS % (AUTO) 75.5 % (42.2-75.2); PLATELET COUNT (AUTO) 237 K/uL (140-450); RED BLOOD CELL COUNT(AUTO) 3.56 MIL/uL (4.20-6.10); RED CELL DISTRIBUTION WIDTH 13.7 % (11.6-13.7)
[2022-02-08 06:03] LABS: ALBUMIN 2.4 g/dL (3.4-5.0); ANION GAP 12.2 (8-16); CARBON DIOXIDE 26.2 mmol/L (21-32); CREATININE 0.8 mg/dL (0.6-1.3); MAGNESIUM 1.9 mg/dL (1.8-2.4); POTASSIUM 3.4 mmol/L (3.5-5.1); TOTAL BILIRUBIN 0.3 mg/dL (0.0-1.0)
--- NOTE | 2022-02-08 07:20 | NUR ---
RECEIVED REPORT FROM LEGAL ASSISTANT NURSE. PT IS IN BED RESTING AND NO SIGN OF DISTRESS NOTED. PT HAS A LEFT MIDLINE RUNNING PROPOFOL AT 65 MCG/KG/MIN AND LR AT 100 ML/HR. PT IS INTUBATED AND MECHANICALLY VENTILATED SETTING AT A/C VC FIO2 35%, TV 500, RATE 14 AND PEEP OF 5. PT HAS A NG ON LEFT NARE RUNNING NEPRO FEEDINGS AT 30ML/HR WITH WATER FLUSHES OF 100ML Q6H. PT HAS TWO SCAB WOUNDS ON LEFT FOREARM. ALL SAFETY PRECAUTIONS ARE IN PLACE. WILL CONTINUE TO MONITOR.
[2022-02-08] MEDS: VANCOMYCIN HCL 1.25 GM in DEXTROSE 5% 250 ML IV SCH ×2 (08:43→21:28)
[2022-02-08] MEDS: PANTOPRAZOLE 40 MG INJ VIAL IVP SCH (08:43)
[2022-02-08] MEDS: PROPOFOL 1000 MG/100 ML PREMIX 100 ML IV PRN (09:30)
--- NOTE | 2022-02-08 10:04 | NUR ---
DR. PARIKH AT BEDSIDE AND ASSESSING PT. PER DR. PARIKH ORDERS, PROPOFOL HAS BEEN PLACED ON HOLD. WILL MONITOR PT.
--- NOTE | 2022-02-08 10:10 | NUR ---
DR. PARIKH AT BEDSIDE AND PLACED PT ON CPAP TRIALS. WILL CONTINUE TO MONITOR.
[2022-02-08] MEDS ORDERED: FUROSEMIDE 20 MG/2 ML VIAL IVP SCH (11:00)
[2022-02-08] MEDS: fentaNYL citrate 0.05 MG/ML VIAL IVP PRN ×3 (11:35→22:36)
--- NOTE | 2022-02-08 11:35 | NUR ---
PER DR. PARIKH ORDERS, PT WAS ADMINISTERED FENTANYL DUE TO AGITATION AND DISTRESSED. WILL CONTINUE TO MONITOR.
--- NOTE | 2022-02-08 11:45 | NUR ---
PER MD JL REDDY TO EXTUBATE TO NC - PTS ABG WAS DONE ON CPAP / - RESULTS RELAYED TO MD - PT ABLE TO NOD YES AND NO TO QUESTIONS - PT TOLERATING NC AT THIS TIME.
--- NOTE | 2022-02-08 13:00 | NUR ---
PER DR. PARIKH ORDERS RESTRAINS COULD BE USED IN CARE PT BECOMES AGITATED AND UNDER DISTRESS AFTER ALL OTHER FORMS OF LEAST INVASIVE INTERVENTIONS ARE USED FIRST.
[2022-02-08] MEDS: LORazepam 2 MG/ML VIAL IM/IVP PRN ×3 (13:17→23:47)
[2022-02-08] MEDS ORDERED: COMMUNICATION ORDER MC PRN (16:50)
[2022-02-08] MEDS ORDERED: hydrALAZINE 20 MG/ML VIAL IVP PRN (17:05)
[2022-02-08] MEDS: MORPHINE SULFATE 4 MG/ML SYR IVP PRN (17:55)
--- NOTE | 2022-02-08 19:25 | NUR ---
ENDORSE CARE TO BRIM RAISER NURSE FOR CONTINUITY OF CARE.
--- NOTE | 2022-02-08 19:30 | NUR ---
RECEIVED REPORT FROM DAY SHIFT NURSE, ASSUMED CARE. OBSERVED PATIENT RESTLESS AND AGITATED IN BED WITH RESTRAINTS ON. PT BREATHING WITH NC AT 6 L/MIN WITH HUMIDIFIER, O2 SAT 96% IN NO ACUTE DISTRESS. BREATHING EVEN AND UNLABORED WITH BILATERAL DIMINISHED BREATH SOUNDS. AOX0, NON VERBAL. MIDLINE IN SARAHI RUNNING LR AT 10 ML/HR. LEFT NG TUBE IN PLACE WITH FEEDING PAUSED AT THIS TIME. MELO CATHETER IN PLACE DRAINING TO GRAVITY. SKIN ABRASIONS NOTED ON LEFT ARM AND LEFT FOOT. ALL SAFETY MEASURES IN PLACE, WILL CONTINUE TO CLOSELY MONITOR AND FOLLOW POC. ADMINISTERED ATIVAN PER PRN ORDERS FOR AGITATION. PT TOLERATED WELL.
--- NOTE | 2022-02-08 20:30 | NUR ---
PT GIRLFRIEND AT BEDSIDE VISITING. RT ALSO AT BEDSIDE ASSESSING PT. PT IN NO APPARENT ACUTE DISTRESS AT THIS TIME.
--- NOTE | 2022-02-08 22:35 | NUR ---
OBSERVED PATIENT RESTLESS AND AGITATED IN BED, ADMINISTERED FENTANYL PER PRN ORDERS. O2 SAT AT 97%, BP 151/87, HR 115, PT IN NO ACUTE DISTRESS. WILL CONTINUE TO CLOSELY MONITOR AND FOLLOW POC.
[2022-02-09] VITALS (17 sets, daily range): BP systolic 129–183; BP diastolic 68–111
--- NOTE | 2022-02-09 01:30 | NUR ---
PT OBSERVED TO BE RESTLESS, ADMINISTERED FENTANYL PER PRN ORDERS FOR AGITATION. PT IN NO ACUTE DISTRESS. BREATHING ON NC AT 6 L/MIN. ALL SAFETY MEASURES IN PLACE, WILL CONTINUE TO CLOSELY MONITOR AND FOLLOW POC.
[2022-02-09] MEDS: fentaNYL citrate 0.05 MG/ML VIAL IVP PRN ×3 (01:37→09:25)
[2022-02-09] MEDS: LORazepam 2 MG/ML VIAL IM/IVP PRN ×4 (03:01→17:38)
[2022-02-09] MEDS: PIPERACILLIN/TAZOBACTAM 2.25 GM in DEXTROSE 5% 50 ML IV SCH ×3 (04:54→20:00)
--- NOTE | 2022-02-09 06:02 | NUR ---
RT AT BEDSIDE ASSESSING PT, PT OBSERVED TO BE INCREASINGLY RESTLESS WITH O2 SAT BETWEEN 83%-85%. ADMINISTERED FENTANYL PER PRN ORDERS FOR AGITATION. WILL CONTINUE TO CLOSELY MONITOR AND FOLLOW POC.
--- NOTE | 2022-02-09 06:15 | NUR ---
PT PUT ON OXYMIZER AT 10 L/MIN, O2 SAT INCREASED TO 97%. PT IN NO APPARENT ACUTE DISTRESS. WILL CONTINUE TO CLOSELY MONITOR AND FOLLOW POC.
--- NOTE | 2022-02-09 06:25 | NUR ---
PT PLACED ON 10L OXY POST ABG SPO2 97% 10 MIN POST ABG
[2022-02-09 07:06] LABS: BASOPHILS # (AUTO) 0.1 K/uL (0.00-0.22); BASOPHILS % (AUTO) 0.6 % (0.0-2.0); EOSINOPHILS # (AUTO) 0.4 K/uL (0-0.4); EOSINOPHILS % (AUTO) 2.9 % (0.0-4.0); HEMATOCRIT 35.8 % (36-52); HEMOGLOBIN 12.3 g/dL (12.0-18.0); LYMPHOCYTES # (AUTO) 1.3 K/uL (2.0-11.5); LYMPHOCYTES % (AUTO) 10.3 % (20.5-51.1); MEAN CORPUSCULAR HEMOGLOBIN 32 pg (27-31); MEAN CORPUSCULAR HGB CONC 35 g/dL (33-37); MEAN CORPUSCULAR VOLUME 93.7 fL (80-94); MONOCYTES # (AUTO) 1.6 K/uL (0.8-1.0); MONOCYTES % (AUTO) 12.9 % (1.7-9.3); NEUTROPHILS # (AUTO) 9.1 K/uL (1.8-7.7); NEUTROPHILS % (AUTO) 73.3 % (42.2-75.2); PLATELET COUNT (AUTO) 278 K/uL (140-450); RED BLOOD CELL COUNT(AUTO) 3.82 MIL/uL (4.20-6.10); RED CELL DISTRIBUTION WIDTH 13.7 % (11.6-13.7); WHITE BLOOD COUNT (AUTO) 12.4 K/uL (4.8-10.8)
[2022-02-09 07:09] LABS: ALBUMIN 2.6 g/dL (3.4-5.0); CARBON DIOXIDE 27.9 mmol/L (21-32); CREATININE 0.8 mg/dL (0.6-1.3); MAGNESIUM 1.7 mg/dL (1.8-2.4); POTASSIUM 3.9 mmol/L (3.5-5.1); TOTAL BILIRUBIN 0.7 mg/dL (0.0-1.0)
--- NOTE | 2022-02-09 07:15 | NUR ---
RECEIVED REPORT FROM TINA BURNS. Addendum: 02/09/22 at 0837 by Ermelinda Brand RN NOTE ON INCORRECT PATIENT
--- NOTE | 2022-02-09 08:15 | NUR ---
PATIENT SEDATED. PUPILS 3MM AND REACTIVE. JOCELYNN PICC LINE IN PLACE WITH D5NS AT 50ML/HR, LEVOPHED AT 2MCG/MIN, PROPOFOL AT 30MCG/KG/MIN. HEART SOUNDS REGULAR WITHOUT MURMUR. MONITOR SR. INTUBATED WITH VENT AT AC/PRVC MODE FIO2.024/VT450/RATE18/PEEP5. SAO2 100%. ANTERIOR/LATERAL BREATH SOUNDS DIMINISHED THROUGHOUT. ABDOMEN DISTENDED AND FIRM. HYPOACTIVE BOWEL SOUNDS. ORAL GASTRIC TUBE IN PLACE TO LOW CONTINUOUS SUCTION. DRAINAGE YELLOW/GREEN IN COLOR. MELO IN PLACE WITH YELLOW URINE. #22 GAUGE LEFT FOREARM REMOVED. Addendum: 02/09/22 at 0837 by Ermelinda Brand RN NOTE ON INCORRECT PATIENT.
[2022-02-09] MEDS: VANCOMYCIN HCL 1.25 GM in DEXTROSE 5% 250 ML IV SCH ×2 (08:20→20:35)
[2022-02-09] MEDS: PANTOPRAZOLE 40 MG INJ VIAL IVP SCH (08:21)
--- NOTE | 2022-02-09 09:05 | NUR ---
RECEIVED BEDSIDE REPORT FROM TIBURCIO ELIAS RN FOR CONTINUITY OF CARE. PT IN THE BED. ON 10L OXYMIZER NC AT 10L. SR ON THE MONITOR. NGT CLAMPED. F/C IN PLACE DRAINING TO GRAVITY. SARAHI MIDLINE IN PLACE, NO S/S, INFUSING LR TKO AT 5 ML/HR. SKIN NOT INTACT, LFA VERSATEL IN PLACE, SARAHI VERSATEL IN PLACE. GENERALIZED WEAKNESS. BL SOFT WRIST RESTRAINTS IN PLACE. NO S/S INJURY. ON STANDARD PRECAUTIONS. ALL SAFETY PRECAUTIONS MET. INITIAL ASSESSMENT COMPLETE, WILL CONTINUE TO CLOSELY MONITOR.
--- NOTE | 2022-02-09 10:04 | NUR ---
(02/09/22) RD FOLLOW UP COMPLETED PLEASE REFER TO NUTRITION PROGRESS NOTE UNDER CARE ACTIVITY FOR ESTIMATED NUTRITION NEEDS. RD RECOMMENDATIONS: 1. IF PT IS A CANDIDATE FOR SWALLOW EVAL, CONSIDER SWALLOW EVAL + IF PT PASSES SWALLOW EVAL, INITIATING PO 2GM SODIUM DIET IN TEXTURES PER STATISTICIAN RECOMMENDATIONS. 2. IF PT IS NOT A CANDIDATE FOR SWALLOW EVAL, CONSIDER ALTERNATE ROUTE OF NUTRITION SUCH PPN/TPN PER PHARMACY. 3. RD TO FOLLOW-UP 2-3 DAYS, HIGH RISK AMAIRANI MUNOZ MS, RDN
--- NOTE | 2022-02-09 11:25 | NUR ---
SEEN AND EXAMINED BY DR GIRON. ORDERS RECEIVED.
[2022-02-09] MEDS ORDERED: MAG SULF 2000 MG/WATER PREMIX 50 ML IV SCH (12:00)
[2022-02-09] MEDS: OLANZapine 5 MG TAB NG SCH ×2 (12:04→20:30)
--- NOTE | 2022-02-09 13:15 | NUR ---
nt suctioned pt - RT student - pt tolerated at this time - sxn small thick
--- NOTE | 2022-02-09 15:00 | NUR ---
PT CLEANED AND REPOSITIONED. TOLERATED WELL. NO STOOL NOTED. WILL CONTINUE TO CLOSELY MONITOR.
[2022-02-09] MEDS ORDERED: VANCOMYCIN PER PHARMACY MC PRN (16:25)
--- NOTE | 2022-02-09 16:57 | NUR ---
SPOKE WITH DR GIRON ON THE PHONE ABOUT PT ELEVATED BP 182/105 NOW AND RECENT DBP > 100 . TELEPHONE ORDERS RECEIVED.
[2022-02-09] MEDS ORDERED: CLONIDINE HYDROCHLORIDE 0.1 MG TAB PO SCH (17:00)
[2022-02-09] MEDS ORDERED: CLONIDINE HYDROCHLORIDE 0.1 MG TAB ONE (17:12)
[2022-02-09] MEDS: hydrALAZINE 20 MG/ML VIAL IVP PRN (17:21)
--- NOTE | 2022-02-09 19:08 | NUR ---
ENDORSED BEDSIDE REPORT TO TIBURCIO ELIAS RN FOR CONTINUITY OF CARE.
--- NOTE | 2022-02-09 19:30 | NUR ---
RECEIVED REPORT FROM DAY SHIFT NURSE, ASSUMED CARE. PT OBSERVED RESTLESS IN BED, NON VERBAL, AOX0, DOES NOT OPEN EYES TO VOICE, TOUCH, OR PAIN/STIMULATION. BREATHING ON OXYMIZER AT 10 L/MIN, O2 SAT 98%, BREATHING EVEN AND UNLABORED WITH BILATERAL RHONCHI BREATH SOUNDS UPON AUSCULTATION. NO SIGNS OF ACUTE DISTRESS NOTED. LEFT UA MIDLINE IN PLACE RUNNING LR TKO 5 ML/HR. LEFT NARES NG TUBE IN PLACE CLAMPED FOR ASPIRATION PRECAUTIONS. MELO CATHETER IN PLACE DRAINING TO GRAVITY. SKIN NON INTACT WITH LEFT ARM ABRASIONS, AND LEFT FOOT SKIN TEAR WITH OPTIFOAM IN PLACE. ALL SAFETY MEASURES IN PLACE, WILL CONTINUE TO CLOSELY MONITOR AND FOLLOW POC.
[2022-02-09] MEDS: CLONIDINE HYDROCHLORIDE 0.1 MG TAB PO SCH (20:30)
--- NOTE | 2022-02-09 21:45 | NUR ---
PT PLACED ON NIV FOR WOB PT SPO2 WAS ADEQUATE BUT WAS RETRACTING, HAD MOMENTS OF WHAT APPEARED TO BE APNEA WILL MONITOR PT BIPAP PLUGGED INTO RED OUTLET AND ALARMS ON AND AUDIBLE SETTINGS WERE INITIATED AT MIN SETTINGS AND WERE TITRATED TO ACHIEVE ADEQUATE Vt 15/5 f16 60% CURRENT SPO2 98% WILL CONTINUE TO MONITOR AND TITRATE TOLERATED
--- NOTE | 2022-02-09 22:00 | NUR ---
RT AT BEDSIDE ASSESSING PT. PT NOTED TO BE RESTLESS IN BED. BIPAP WAS PUT ON PT WITH FIO2 AT 60% AND 10 L/MIN. PT TOLERATED WELL AND FELL ASLEEP WITH 02 SAT AT 98% IN NO ACUTE DISTRESS. ALL SAFETY MEASURES IN PLACE, WILL CONTINUE TO CLOSELY MONITOR AND FOLLOW POC. Addendum: 02/10/22 at 0536 by Louise Flores RN BIPAP SETTINGS 15/5, FIO2 60%, RATE 16
[2022-02-10] VITALS (13 sets, daily range): BP systolic 113–173; BP diastolic 57–93
--- NOTE | 2022-02-10 02:30 | NUR ---
PT SLEEPING WITH EYES CLOSED IN NO ACUTE DISTRESS. BREATHING ON BIPAP AT 10 L/MIN AND FIO2 60%, O2 SAT 98%. ALL SAFETY MEASURES IN PLACE, WILL CONTINUE TO CLOSELY MONITOR AND FOLLOW POC. Addendum: 02/10/22 at 0537 by Louise Flores RN BIPAP SETTINGS 15/5, FIO2 60%, RATE 16
--- NOTE | 2022-02-10 04:00 | NUR ---
MORNING CARE AND ORAL CARE PROVIDED, PT TOLERATED WELL. PT IN NO ACUTE DISTRESS O2 SAT 96%. PT CONTINUES ON BIPAP AT 10 L/MIN, FIO2 60%. ALL SAFETY MEASURES IN PLACE, WILL CONTINUE TO CLOSELY MONITOR AND FOLLOW POC. Addendum: 02/10/22 at 0537 by Louise Flores RN BIPAP SETTINGS 15/5, FIO2 60%, RATE 16
[2022-02-10] MEDS: PIPERACILLIN/TAZOBACTAM 2.25 GM in DEXTROSE 5% 50 ML IV SCH ×3 (04:33→20:24)
--- NOTE | 2022-02-10 05:34 | NUR ---
PT REMOVED FROM NIV PT CURRENTLY AWAKE REPLACED ON 10L OXY PT TOLERATING WELL BUT APPEARS RESTLESS/IRRITABLE WILL CONTINUE TO MONITOR SPO2 98% f24 HR 104 WILL CONTINUE TO MONITOR
[2022-02-10] MEDS: LORazepam 2 MG/ML VIAL IM/IVP PRN ×3 (06:30→12:15)
--- NOTE | 2022-02-10 07:23 | NUR ---
BEDSIDE REPORT GIVEN TO DAY SHIFT NURSE, ENDORSED CARE. PT IN NO ACUTE DISTRESS.
--- NOTE | 2022-02-10 07:30 | NUR ---
RECEIVED BEDSIDE REPORT FROM NIGHT RN FOR CONTINUITY OF CARE. PT IN THE BED, HOB ELEVATED. APPEARS RESTLESS, AOX0, UNABLE TO FOLLOW COMMANDS. ON 10L OXYMIZER NC. ST ON THE MONITOR. NGT CLAMPED. F/C IN PLACE DRAINING TO GRAVITY. SARAHI MIDLINE IN PLACE, NO S/S, INFUSING LR TKO AT 5 ML/HR. SKIN NOT INTACT, REFER TO SKIN ASSESSMENT. GENERALIZED WEAKNESS. BL SOFT WRIST RESTRAINTS IN PLACE. NO S/S INJURY. ON STANDARD PRECAUTIONS. ALL SAFETY PRECAUTIONS MET. INITIAL ASSESSMENT COMPLETE, WILL CONTINUE TO CLOSELY MONITOR.
[2022-02-10] MEDS: fentaNYL citrate 0.05 MG/ML VIAL IVP PRN (07:59)
--- NOTE | 2022-02-10 08:05 | NUR ---
FENTANYL 50MCG IVP GIVEN ORDERED FOR AGITATION
[2022-02-10 08:28] LABS: BASOPHILS % (AUTO) 0.4 % (0.0-2.0); EOSINOPHILS # (AUTO) 0.2 K/uL (0-0.4); EOSINOPHILS % (AUTO) 1.5 % (0.0-4.0); HEMATOCRIT 34.5 % (36-52); HEMOGLOBIN 11.6 g/dL (12.0-18.0); LYMPHOCYTES # (AUTO) 1.1 K/uL (2.0-11.5); LYMPHOCYTES % (AUTO) 8.6 % (20.5-51.1); MEAN CORPUSCULAR HEMOGLOBIN 32 pg (27-31); MEAN CORPUSCULAR HGB CONC 34 g/dL (33-37); MEAN CORPUSCULAR VOLUME 94.7 fL (80-94); MONOCYTES # (AUTO) 1.8 K/uL (0.8-1.0); NEUTROPHILS # (AUTO) 9.9 K/uL (1.8-7.7); NEUTROPHILS % (AUTO) 75.5 % (42.2-75.2); PLATELET COUNT (AUTO) 285 K/uL (140-450); RED BLOOD CELL COUNT(AUTO) 3.64 MIL/uL (4.20-6.10); RED CELL DISTRIBUTION WIDTH 13.3 % (11.6-13.7); WHITE BLOOD COUNT (AUTO) 13.1 K/uL (4.8-10.8)
[2022-02-10 08:45] LABS: ANION GAP 8.6 (8-16); CARBON DIOXIDE 32.6 mmol/L (21-32); CREATININE 0.8 mg/dL (0.6-1.3); POTASSIUM 4.2 mmol/L (3.5-5.1)
--- NOTE | 2022-02-10 09:00 | NUR ---
DUE MEDS GIVEN. TOLERATED WELL. ORAL CARE DONE. TURNED AND REPOSITIONED
[2022-02-10] MEDS: CLONIDINE HYDROCHLORIDE 0.1 MG TAB PO SCH ×2 (09:01→20:27)
[2022-02-10] MEDS: OLANZapine 5 MG TAB NG SCH ×2 (09:01→20:27)
[2022-02-10] MEDS: PANTOPRAZOLE 40 MG INJ VIAL IVP SCH (09:01)
[2022-02-10] MEDS: VANCOMYCIN 1,500 MG in DEXTROSE 5% 500 ML IV SCH ×2 (10:14→21:09)
[2022-02-10] MEDS: hydrALAZINE 20 MG/ML VIAL IVP PRN (10:57)
[2022-02-10] MEDS ORDERED: CALCIUM GLUC 1 GM/50 mL NS BAG 50 ML IV ONE (12:15)
--- NOTE | 2022-02-10 12:15 | NUR ---
PT STILL RESTLESS, UNABLE TO FOLLOW COMMANDS. ATIVAN 1MG GIVEN ORDERED
[2022-02-10] MEDS: DEXMEDETOMIDINE HCL 400 MCG in NACL 0.9% 96 ML IV PRN ×2 (13:00→22:51)
--- NOTE | 2022-02-10 13:00 | NUR ---
SEEN AND EXAMINED BY DR POPE. ORDERED TO START PRECEDEX DRIP AND TO START TUBE FEEDING AT 10CC/HR. NOTED AND CARRIED OUT
--- NOTE | 2022-02-10 14:15 | NUR ---
conferred with rn regarding patient agitation - pt placed on bipap briefly due to agitation - pt did not tolerate bipap and rn placed pt back on oximizer at previous settings - at NO time did patient seen in respiratory distress or desat - pts saturations remained in the high 90s before, during, and after bipap placement. bipap placed on solely for possible solution for patient agitation.
--- NOTE | 2022-02-10 15:00 | NUR ---
PT STILL RESTLESS WITH NONPURPOSEFUL MOVEMENT, TITRATED PRECEDEX UP ORDERED
--- NOTE | 2022-02-10 18:30 | NUR ---
NELSON CARE DONE, NOTED WOUND ON RIGHT BUTTOCK, PHOTO TAKEN. TURNED AND REPOSITIONED
--- NOTE | 2022-02-10 19:36 | NUR ---
RECEIVED REPORT AT BEDSIDE FROM TD AYALA FOR CONTINUITY OF CARE. PT LAYING IN BED WITH EYES CLOSED. AOX0. BREATHING ON OXYMIZER 10L NC. SR ON MONITOR. NGT TO LEFT NARES; PLACEMENT VERIFIED WITH AUSCULTATION, RUNNING NEPRO @ 10ML/HR WITH 10ML WATER FLUSH Q4H. SARAHI MIDLINE IN PLACE, PATENT AND INTACT, INFUSING LR TKO @ 5ML/HR AND PRECEDEX @ 0.7 MCG/KG/HR. SKIN NOT INTACT, SEE WOUND ASSESSMENT. F/C ALREADY IN PLACE @ BSD DRAINING TO GRAVITY. BL SOFT WRIST RESTRAINTS IN PLACE. ALL SAFETY PRECAUTIONS IN PLACE. INITIAL ASSESSMENT COMPLETED. WILL CONTINUE TO MONITOR.
--- NOTE | 2022-02-10 19:40 | NUR ---
SPOKE W/ DR CHRISTINE ([facility] [phone]) AND RECEIVED VERBAL ORDER FOR PRN NIV TITRATE TOLERATED
--- NOTE | 2022-02-10 21:06 | NUR ---
SCHEDULED MEDS ADMINISTERED ORDER. NADR NOTED. VSS. TURNED AND REPOSITIONED. PT GIRLFRIEND AT BEDSIDE. WILL CONTINUE TO MONITOR.
[2022-02-11] VITALS (12 sets, daily range): BP systolic 80–121; BP diastolic 31–78
--- NOTE | 2022-02-11 00:17 | NUR ---
PT OBSERVED. NO S/S OF DISTRESS NOTED. CHEST RISE AND FALL PRESENT. PT TURNED AND REPOSITIONED. WILL CONTINUE TO MONITOR.
--- NOTE | 2022-02-11 03:26 | NUR ---
AM CARE, ORAL CARE, NELSON CARE PROVIDED. PT TURNED AND REPOSITIONED. WILL CONTINUE TO MONITOR.
--- NOTE | 2022-02-11 04:13 | NUR ---
FIO2 TITRATED TO 7LOXY PT TOLERATING WELL 98% 5 MIN POST TITRATION
[2022-02-11] MEDS: PIPERACILLIN/TAZOBACTAM 2.25 GM in DEXTROSE 5% 50 ML IV SCH ×3 (05:05→20:40)
--- NOTE | 2022-02-11 05:07 | NUR ---
PT OBSERVED RESTING IN BED WITH EYES CLOSED. NO S/S OF RESP DISTRESS NOTED. VSS. WILL CONTINUE TO MONITOR.
[2022-02-11] MEDS ORDERED: DEXMEDETOMIDINE HCL 100 MCG/ML 2 ML VIAL IV ONE (05:16)
[2022-02-11] MEDS: DEXMEDETOMIDINE HCL 400 MCG in NACL 0.9% 96 ML IV PRN ×3 (05:23→16:21)
[2022-02-11 05:49] LABS: ANION GAP 9.1 (8-16); CARBON DIOXIDE 31.3 mmol/L (21-32); CREATININE 0.8 mg/dL (0.6-1.3); POTASSIUM 4.4 mmol/L (3.5-5.1)
--- NOTE | 2022-02-11 07:20 | NUR ---
Received report on pt. Pt drowsy, arousable, on precedex drip 0.6 mcg/kg/min. Pt states no pain or distress at this time. Pt on oximizer 7L. NGT in place. Webb in place draining urine to gravity.
[2022-02-11 07:28] LABS: BASOPHILS # (AUTO) 0.1 K/uL (0.00-0.22); BASOPHILS % (AUTO) 0.7 % (0.0-2.0); EOSINOPHILS # (AUTO) 0.6 K/uL (0-0.4); EOSINOPHILS % (AUTO) 5.1 % (0.0-4.0); HEMATOCRIT 33.2 % (36-52); HEMOGLOBIN 11.1 g/dL (12.0-18.0); LYMPHOCYTES # (AUTO) 1.2 K/uL (2.0-11.5); MEAN CORPUSCULAR HEMOGLOBIN 32 pg (27-31); MEAN CORPUSCULAR HGB CONC 33 g/dL (33-37); MONOCYTES # (AUTO) 1.2 K/uL (0.8-1.0); MONOCYTES % (AUTO) 11.2 % (1.7-9.3); PLATELET COUNT (AUTO) 284 K/uL (140-450); RED BLOOD CELL COUNT(AUTO) 3.49 MIL/uL (4.20-6.10); RED CELL DISTRIBUTION WIDTH 13.1 % (11.6-13.7); WHITE BLOOD COUNT (AUTO) 11.1 K/uL (4.8-10.8)
[2022-02-11] MEDS: VANCOMYCIN 1,500 MG in DEXTROSE 5% 500 ML IV SCH ×2 (08:54→21:02)
[2022-02-11] MEDS: PANTOPRAZOLE 40 MG INJ VIAL IVP SCH (08:55)
[2022-02-11] MEDS: OLANZapine 5 MG TAB NG SCH ×2 (08:55→20:41)
[2022-02-11] MEDS: CLONIDINE HYDROCHLORIDE 0.1 MG TAB PO SCH ×2 (08:56→20:42)
[2022-02-11] MEDS: LORazepam 2 MG/ML VIAL IM/IVP PRN (09:00)
[2022-02-11] MEDS: MENTHOL/ZINC OXIDE 113 GM TUBE TP SCH (09:48)
--- NOTE | 2022-02-11 09:48 | NUR ---
Pt noted more awake and moving around. Oriented x2, states no pain or distress at this time. Frequently reoriented.
--- NOTE | 2022-02-11 10:30 | NUR ---
SKIN ASSESSMENT DONE FOR LOW BRET SCALE HIGH RISK, AND MULTIPLE SKIN ALTERATION ABRASIONS/SKIN TEARS FROM FRICTION DUE TO PT. CONFUSIONS AND FREQUENT MOVING WITH RESTLESS BEHAVIOR. PT. WITH BILATERAL SOFT WRIST RESTRAINTS, DEVICES REMOVED AND REAPPLY, NO SKIN BREAKS. LEFT FOREARM AND LEFT LOWER LEG SKIN TEARS/ABRASIONS DRESSING DRY AND CLEAN. RIGHT BUTTOCK SKIN THIN ABRASIONS 4X2CM SUPERFICIAL DEPTH, NO S/S OF INFECTION,AREA DRY AND CLEAN, PHOTO OBTAINED, FOAM DRESSING APPLIED. CONTINUE TO FOLLOW PRESSURE INJURY PREVENTION INTERVENTIONS.PT IS RE-POSITION, LINENS AND PADS ARE FLAT AND SMOOTH. POC DISCUSSED WITH PRIMARY RN. RECOMMENDATIONS -APPLY HYDRAGUARD TO BUTTOCKS BID AND PRN IF SOILING. -APPLY VERSATEL DRESSING TO LEFT FOREARM AND LEFT LOWER LEG Q5DAYS AND PRN IF SOILING -POSITIONING: TURN AND REPOSITION PATIENT Q 2H OR SOONER USE PILLOWS TO KEEP BONY PROMINENCES FROM DIRECT CONTACT WITH SURFACES USE REPOSITIONING WEDGES TO PROVIDE 30-DEGREE ANGLE FOR SIDE LYING POSITIONS OFFLOADING OR FOAM DRESSING TO ALL TUBING TO PREVENT MEDICAL DEVICES RELATED PRESSURE INJURY -RE-EVALUATING AND MANAGING INCONTINENCE MONITOR SKIN CONDITION DURING POSITION CHANGE DO NOT MASSAGE REDNESS, BONY PROMINENCES, DO NOT USE DONUT-TYPE DEVICES FREQUENT NELSON-CARE AND PROVIDE BARRIER CREAMS PRN IF SOILING MOISTURE CONTROL BY OFFER BED AREVALO/URINAL /ABSORBENT PAD TO WICK AND HOLD MOISTURE. KEEP SKIN DRY AND PROTECT FROM FRICTION -MANAGE FRICTION/SHEAR/MOBILITY KEEP HOB AT THE LOWEST LEVEL OF ELEVATION NO MORE THAN 30 DEGREE UNLESS OTHERWISE CONTRAINDICATED USE LIFT SHEET OR TRANSFER DEVICE TO MOVE PATIENT AND PREVENT LATERAL SHEER. PROTECT HEELS, ELBOWS BONY PROMINENCES WITH SKIN BERRIES OR FOAM DRESSING IF EXPOSED TO FRICTION OFFLOAD BILATERAL HEELS BY PLACING PILLOWS UNDER CALVES AT ALL TIMES, UNLESS OTHERWISE CONTRAINDICATED -PRESSURE REDISTRIBUTION SURFACE THERAPY -NUTRITION: PLEASE FOLLOW RD RECOMMENDATIONS AND OFFER NUTRITION SUPPLEMENTS IF ORDERED. PLEASE CONTACT WOUND CARE NURSE FOR ANY QUESTION AND CHANGE OF WOUND CONDITION.
[2022-02-11] MEDS: HYDRAGUARD CREAM TP SCH (12:33)
--- NOTE | 2022-02-11 13:59 | NUR ---
02/11/22 RD FOLLOW UP COMPLETED PLEASE REFER TO NUTRITION ASSESSMENT UNDER CARE ACTIVITY FOR ESTIMATED NUTRITIONAL NEEDS. 1. CONTINUE NEPRO @ 30 ML/HR TOLERATED -FWF: 10 ML Q4H PER MD -PROVIDES 1296 KCAL AND 58 GM PROTEIN, MEETING 74% ESTIMATED KCAL AND 100% ESTIMATED PROTEIN NEEDS; NOT ADEQUATE -IF PT NOT ON PROPOFOL, RECOMMEND INCREASING TF GOAL RATE TO 40 ML/HR TOLERATED 2. RD TO FOLLOW-UP 2-3 DAYS, HIGH RISK MIGDALIA FINNEY RD
--- NOTE | 2022-02-11 16:45 | NUR ---
Pt able to speak somewhat more clearly asking for sandwich. Still noted with cough and suctioning performed. Pt remains on wrist restraints and precedex drip for safety despite re-orientation.
--- NOTE | 2022-02-11 19:20 | NUR ---
RECEIVED REPORT FROM LAMBERT AGENCY RN, FOR CONTINUITY OF CARE.
[2022-02-11] MEDS ORDERED: VANCOMYCIN 500 MG VIAL ONE (19:41)
[2022-02-11] MEDS ORDERED: VANCOMYCIN 1,000 MG VIAL ONE (19:42)
--- NOTE | 2022-02-11 19:46 | NUR ---
[facility] PATIENT CURRENTLY LYING IN BED SUPINE IN SEMI-FOWLERS WITH SOFT WRIST RESTRAINTS APPLIED. PATIENT IS RESTLESS AND A/O x 1, AWARE TO NAME RAAS +1. PATIENT IS RECEIVING O2 VIA OXYMIZER 4L WITH O2 SATURATIONS AT 98%, DRY COUGH PRESENT. ACCESS SITE IS LEFT MIDLINE INFUSING PRECEDEX AT 0.8 MCG/KG/HR. NG TUBE PRESENT TO LEFT NARE INFUSING NEPRO AT 30ML/HR. MELO CATHETER PRESENT AND PATENT. PATIENT DOES NOT APPEAR TO BE IN DISTRESS/ PAIN AT THIS TIME. WILL CONTINUE TO MONITOR.
--- NOTE | 2022-02-11 20:34 | NUR ---
PATIENT GIRLFRIEND AT BEDSIDE.
[2022-02-11] MEDS: LACTULOSE 20 GM/30 ML UDC NG SCH (20:40)
[2022-02-11] MEDS: MORPHINE SULFATE 4 MG/ML SYR IVP PRN (22:54)
[2022-02-12] VITALS (12 sets, daily range): BP systolic 94–180; BP diastolic 59–93
[2022-02-12] MEDS: HYDRAGUARD CREAM TP SCH ×2 (01:03→13:28)
--- NOTE | 2022-02-12 01:30 | NUR ---
PT RESTLESS WITH NON-PURPOSEFUL MOVEMENT. PRN ATIVAN ADMINISTERED
[2022-02-12] MEDS: LORazepam 2 MG/ML VIAL IM/IVP PRN ×2 (02:17→13:00)
[2022-02-12] MEDS: fentaNYL citrate 0.05 MG/ML VIAL IVP PRN (02:42)
--- NOTE | 2022-02-12 02:50 | NUR ---
PROVIDED NELSON AND PM CARE AFTER LARGE AMOUNT OF STOOL. PATIENT RESTLESS PRN FENTANYL GIVEN. VS 131/73 HR 79 SPO2 99 RR 22. WILL CONTINUE TO MONITOR
[2022-02-12] MEDS: PIPERACILLIN/TAZOBACTAM 2.25 GM in DEXTROSE 5% 50 ML IV SCH ×3 (05:11→20:27)
--- NOTE | 2022-02-12 07:15 | NUR ---
RECEIVED REPORT FROM OSD CLERK NURSE. PT IS CALM AND RESTING IN BED AND IN NO SIGN OF DISTRESS AT THE MOMENT. PT IS ON OXIMETER RUNNING AT 3L/MIN. PT HAS A LEFT NARE NGT RUNNING NEPRO FEEDING AT 30ML, WITH WATER FLUSHES OF 10ML Q4H. PT HAS A LEFT MIDLINE RUNNING D5LR AT 5ML/H AND PRECEDEX AT 0.8 MCG/KG/H. PT HAS A MELO IN PLACE AND IS INTACT. PT HAS TWO WOUNDS ON LEFT FA AND LEFT LOWER LEG. ALL SAFETY PRECAUTIONS ARE IN PLACE. WILL CONTINUE TO MONITOR.
--- NOTE | 2022-02-12 07:18 | NUR ---
REPORT ENDORSED TO TINA AN FOR CONTINUITY OF CARE.
--- NOTE | 2022-02-12 09:00 | NUR ---
DR. POPE AT BEDSIDE AND ASSESSING PT.
[2022-02-12] MEDS: LACTULOSE 20 GM/30 ML UDC NG SCH ×2 (09:40→20:27)
[2022-02-12] MEDS: PANTOPRAZOLE 40 MG INJ VIAL IVP SCH (09:40)
[2022-02-12] MEDS: VANCOMYCIN 1,500 MG in DEXTROSE 5% 500 ML IV SCH ×2 (09:40→21:21)
[2022-02-12] MEDS: CLONIDINE HYDROCHLORIDE 0.1 MG TAB PO SCH ×3 (09:40→21:58)
[2022-02-12] MEDS: MENTHOL/ZINC OXIDE 113 GM TUBE TP SCH (09:40)
--- NOTE | 2022-02-12 10:00 | NUR ---
DR. SALAS AT BEDSIDE ASSESSING PT AND TALKING TO FAMILY. Addendum: 02/12/22 at 1103 by Dennis Gasca RN RN DIFFERENT PT.
--- NOTE | 2022-02-12 10:00 | NUR ---
DR. MCKEON AT BEDSIDE AND ASSESSING PT.
[2022-02-12] MEDS: QUEtiapine FUMARATE 25 MG TAB NG SCH ×2 (11:00→20:27)
--- NOTE | 2022-02-12 11:01 | NUR ---
US AT BEDSIDE. Addendum: 02/12/22 at 1102 by Dennis Gasca RN RN DIFFERENT PT.
[2022-02-12] MEDS: DEXMEDETOMIDINE HCL 400 MCG in NACL 0.9% 96 ML IV PRN ×2 (11:30→16:55)
--- NOTE | 2022-02-12 12:10 | NUR ---
GAVE PT A BED BATH AND MELO CARE. ADMINISTERED MEDICATION PER MD ORDERS.
[2022-02-12] MEDS: hydrALAZINE 20 MG/ML VIAL IVP PRN (15:35)
[2022-02-12] MEDS: MORPHINE SULFATE 4 MG/ML SYR IVP PRN ×2 (17:52→23:54)
--- NOTE | 2022-02-12 19:13 | NUR ---
REPORT RECEIVED FROM JUVE WILDER, FOR CONTINUITY OF CARE. PATIENT CURRENTLY RESTING IN BED ON CARDIAC MONITORING AND IS CURRENTLY SINUS TACHY WITH HR OF 116. PATIENT IS ON 3L O2 VIA OXIMIZER WITH O2 SATURATION OF 95%. NG TUBE PRESENT TO LEFT NARE INFUSING NEPRO 30ML/HR AND IS TOLERATING WELL. LEFT MIDLINE PRESENT INFUSING IVF KVO AND PRECEDEX 0.8MCG/MIN. PT RAAS +1 WITH SOME NON-PURPOSEFUL MOVEMENT. PATIENT IS A/Ox1 TO NAME. MELO CATHETER PRESENT AND PATENT DRAINING CLEAR ALEXI URINE. SOFT WRIST RESTRAINTS PRESENT AND REINFORCED. PATIENT CALM AND DOES NOT APPEAR TO BE IN ANY PAIN OR DISTRESS CURRENTLY. WILL CONTINUE TO MONITOR.
--- NOTE | 2022-02-12 19:27 | NUR ---
ENDORSED CARE TO CONTRACT RUNNER NURSE FOR CONTINUITY OF CARE.
[2022-02-12] MEDS: OLANZapine 5 MG TAB NG SCH (20:27)
--- NOTE | 2022-02-12 20:40 | NUR ---
PATIENT GIRLFRIEND AT BEDSIDE. UPDATED ON PATIENT CONDITION. NO QUESTIONS AT THIS TIME.
[2022-02-12] MEDS ORDERED: VANCOMYCIN 1,000 MG VIAL ONE (21:11)
[2022-02-12] MEDS ORDERED: VANCOMYCIN 500 MG VIAL ONE (21:11)
--- NOTE | 2022-02-12 21:13 | NUR ---
VANCOMYCIN 500MG VIAL AND VANCOMYCIN 1000MG VIAL DRAWN FROM [employer] AND HANDED TO TINA STANLEY.
--- NOTE | 2022-02-12 23:54 | NUR ---
PRN MORPHINE PROVIDED AFTER PATIENT BECAME INCREASINGLY RESTLESS AND STATES THAT HE IS IN PAIN. WILL REASSESS.
[2022-02-13] VITALS (12 sets, daily range): BP systolic 110–157; BP diastolic 64–92
--- NOTE | 2022-02-13 00:38 | NUR ---
PATIENT PAIN REASSESSED. PAIN CONTROLLED. PT CURRENTLY RESTING IN BED. RESTRAINTS REINFORCED. WILL CONTINUE TO MONITOR.
[2022-02-13] MEDS: HYDRAGUARD CREAM TP SCH ×2 (00:39→13:16)
[2022-02-13] MEDS: HYDROcodone/APAP 5/325 MG 1 TAB TAB PO PRN (02:49)
--- NOTE | 2022-02-13 02:49 | NUR ---
KYM VELAZQUEZ PROVIDED FOR PAIN. WILL REASSESS
--- NOTE | 2022-02-13 03:20 | NUR ---
PAIN REASSESSED AND CURRENTLY CONTROLLED. WILL CONTINUE TO MONITOR.
[2022-02-13] MEDS: PIPERACILLIN/TAZOBACTAM 2.25 GM in DEXTROSE 5% 50 ML IV SCH ×3 (04:45→20:33)
[2022-02-13] MEDS: MORPHINE SULFATE 4 MG/ML SYR IVP PRN ×2 (04:45→23:05)
--- NOTE | 2022-02-13 04:45 | NUR ---
PRN MORPHINE PROVIDED DUE TO PATIENT STATEMENTS OF EXTREME PAIN. WILL CONTINUE TO MONITOR.
--- NOTE | 2022-02-13 04:47 | NUR ---
NELSON-CARE AND REPOSITIONING PROVIDED. DRESSING CHANGE ON SACRUM PERFORMED.
--- NOTE | 2022-02-13 07:09 | NUR ---
REPORT GIVEN TO LAMBERT WILDER, FOR CONTINUITY OF CARE.
--- NOTE | 2022-02-13 07:25 | NUR ---
Received report from RN. Pt drowsy, arousable, oriented x1, on precedex drip 0.7 mcg/kg/hr. Pt in no acute distress, states no pain at this time. Midline in place with IVF TKO. NGT in place with tube feeding. Webb in place draining urine to gravity. Bilateral soft wrist restraints in place for safety. Bed locked in low position.
--- NOTE | 2022-02-13 08:06 | NUR ---
SEEN AND EXAMINED BY DR FALCON
[2022-02-13] MEDS: PANTOPRAZOLE 40 MG INJ VIAL IVP SCH (08:10)
[2022-02-13] MEDS: LACTULOSE 20 GM/30 ML UDC NG SCH (08:11)
[2022-02-13] MEDS: CLONIDINE HYDROCHLORIDE 0.1 MG TAB PO SCH ×2 (08:11→20:33)
[2022-02-13] MEDS: QUEtiapine FUMARATE 25 MG TAB NG SCH ×2 (08:12→20:33)
[2022-02-13] MEDS: MENTHOL/ZINC OXIDE 113 GM TUBE TP SCH (08:16)
[2022-02-13] MEDS: LORazepam 2 MG/ML VIAL IM/IVP PRN ×3 (08:18→21:16)
[2022-02-13] MEDS: VANCOMYCIN 1,500 MG in DEXTROSE 5% 500 ML IV SCH (08:39)
[2022-02-13 08:51] LABS: BASOPHILS # (AUTO) 0.2 K/uL (0.00-0.22); BASOPHILS % (AUTO) 1.9 % (0.0-2.0); EOSINOPHILS # (AUTO) 0.4 K/uL (0-0.4); EOSINOPHILS % (AUTO) 3.6 % (0.0-4.0); HEMATOCRIT 33.9 % (36-52); HEMOGLOBIN 11.5 g/dL (12.0-18.0); LYMPHOCYTES # (AUTO) 1.1 K/uL (2.0-11.5); MEAN CORPUSCULAR HEMOGLOBIN 32 pg (27-31); MEAN CORPUSCULAR HGB CONC 34 g/dL (33-37); MEAN CORPUSCULAR VOLUME 93.9 fL (80-94); MONOCYTES # (AUTO) 1.3 K/uL (0.8-1.0); MONOCYTES % (AUTO) 11.4 % (1.7-9.3); NEUTROPHILS # (AUTO) 8.2 K/uL (1.8-7.7); NEUTROPHILS % (AUTO) 73.1 % (42.2-75.2); PLATELET COUNT (AUTO) 327 K/uL (140-450); RED BLOOD CELL COUNT(AUTO) 3.61 MIL/uL (4.20-6.10); RED CELL DISTRIBUTION WIDTH 13.2 % (11.6-13.7); WHITE BLOOD COUNT (AUTO) 11.2 K/uL (4.8-10.8)
[2022-02-13 08:54] LABS: ANION GAP 11.5 (8-16); CARBON DIOXIDE 29.3 mmol/L (21-32); CREATININE 1.3 mg/dL (0.6-1.3); POTASSIUM 3.8 mmol/L (3.5-5.1)
--- NOTE | 2022-02-13 09:25 | NUR ---
Vanco trough 22.9 drawn prior to Vanco infusion. Reported finding to pharmacist. Instructed to stop infusion. New order to draw random vanco tomorrow. Addendum: 02/13/22 at 1032 by Amina Teague RN Witnessed by 2nd WILDER.
[2022-02-13] MEDS: DEXMEDETOMIDINE HCL 400 MCG in NACL 0.9% 96 ML IV PRN ×2 (11:02→17:54)
--- NOTE | 2022-02-13 11:32 | NUR ---
Dressing change on left upper arm using aseptic technique. Pt tolerated well. Will continue to monitor.
--- NOTE | 2022-02-13 15:38 | NUR ---
PT CLEANED AND REPOSITIONED. M STOOL NOTED. CHG BATH GIVEN. DRESSING CHANGE TO R BUTTOCK. PT TOLERATED WELL. WILL CONTINUE TO CLOSELY MONITOR.
--- NOTE | 2022-02-13 16:37 | NUR ---
SEEN AND EXAMINED BY DR POPE.
[2022-02-13] MEDS: DEXT 5% / NACL 0.45% 1,000 ML IV SCH (16:50)
[2022-02-13] MEDS: hydrALAZINE 20 MG/ML VIAL IVP PRN (18:54)
--- NOTE | 2022-02-13 19:05 | NUR ---
ASSESSED PT AT BEDSIDE. PT IS ON 2L OXYMIZER. OXYGEN STAT IS 93%. PT IS TOLERATING WELL AT THIS TIME. NO RESPIRATORY DISTRESS AT THIS TIME. BIPAP AT BEDSIDE FOR SOB OR INCREASE WOB. WILL CONTINUE TO MONITOR.
--- NOTE | 2022-02-13 19:26 | NUR ---
RECEIVED REPORT FROM [facility] TINA VERDIN FOR CONTINUITY OF CARE. PT LAYING IN BED SEMI-FOWLERS POSITION. SOFT WRIST RESTRAINTS APPLIED FOR SAFETY. A0X2, TO NAME AND PLACE. RASS +1. RECEIVING O2 VIA OXYMIZER 3L WITH O2 SATURATION OF 90%. NGT TO LT NARES, PLACEMENT VERIFIED VIA AUSCULTATION, RUNNING NEPRO @30 ML/HR WITH 10 ML WATER FLUSH Q4H. SARAHI MIDLINE IN PLACE, PATENT AND INTACT, DRESSING DRY AND INTACT, INFUSING D5 1/2NS @50 ML/HR AND PRECEDEX @0.2 MCG/KG/HR. MELO CATH ALREADY IN PLACE 2 BSD DRAINING TO GRAVITY. SKIN IS NOT INTACT, SEE WOUND ASSESSMENT. PT DENIES HAVING PAIN AT THIS TIME. SAFETY MEASURES IN PLACE. BED IN LOWEST POSITION WITH CALL LIGHT WITHIN REACH. WILL CONTINUE TO MONITOR.
[2022-02-13] MEDS: OLANZapine 5 MG TAB NG SCH (20:33)
--- NOTE | 2022-02-13 20:45 | NUR ---
SCHEDULED MEDS ADMINISTERED ORDERED. NADR NOTED. PT TURNED, REPOSITIONED, AND ORAL CARE PROVIDED. WILL CONTINUE TO MONITOR.
--- NOTE | 2022-02-13 21:17 | NUR ---
PT APPEARS VERY AGITATED/RESTLESS; ATIVAN ADMINISTERED ORDERED.WILL CONTINUE TO CLOSELY MONITOR PT
--- NOTE | 2022-02-13 23:00 | NUR ---
PT COMPLAINT OF 8/10 PAIN TO LEFT KNEE. PRN MORPHINE ADMINISTERED ORDERED. NADR NOTED. WILL CONTINUE TO MONITOR.
[2022-02-14] VITALS (12 sets, daily range): BP systolic 134–174; BP diastolic 74–101
[2022-02-14] MEDS: hydrALAZINE 20 MG/ML VIAL IVP PRN ×2 (01:00→16:13)
[2022-02-14] MEDS: HYDRAGUARD CREAM TP SCH ×2 (01:06→13:23)
--- NOTE | 2022-02-14 02:15 | NUR ---
PT OBSERVED. CHEST RISE AND FALL PRESENT. NO S/S OF RESP DISTRESS NOTED. ST ON MONITOR. PT TURNED AND REPOSITIONED. WILL CONTINUE TO MONITOR.
--- NOTE | 2022-02-14 04:00 | NUR ---
PT WITH SCANT AMOUNT OF STOOL. CLEANED; AM CARE, NELSON CARE, AND ORAL CARE PROVIDED. TURNED AND REPOSITIONED. WILL CONTINUE TO MONITOR.
[2022-02-14] MEDS: PIPERACILLIN/TAZOBACTAM 2.25 GM in DEXTROSE 5% 50 ML IV SCH ×3 (04:47→20:19)
[2022-02-14] MEDS: MORPHINE SULFATE 4 MG/ML SYR IVP PRN (05:15)
[2022-02-14] MEDS ORDERED: DEXMEDETOMIDINE HCL 100 MCG/ML 2 ML VIAL IV ONE (06:32)
[2022-02-14 06:36] LABS: ANION GAP 12.2 (8-16); CARBON DIOXIDE 28.3 mmol/L (21-32); CREATININE 1.2 mg/dL (0.6-1.3); POTASSIUM 3.5 mmol/L (3.5-5.1)
[2022-02-14] MEDS: DEXMEDETOMIDINE HCL 400 MCG in NACL 0.9% 96 ML IV PRN ×3 (06:43→22:00)
--- NOTE | 2022-02-14 07:05 | NUR ---
Received report from Ryan WILDER and assumed care of patient. Patient in bed, moving around, sinus tach on the monitor. Precedex at 0.4 mcg/kg/hr, and D5 1/2 NS at 50 ml/hr to Midline at L upper arm. Dressing intact, no signs of infiltration.
--- NOTE | 2022-02-14 07:25 | NUR ---
Report endorsed to Amina WILDER to transfer care of patient, and end my care. No changes noted in patient's status since receiving report this morning.
--- NOTE | 2022-02-14 07:30 | NUR ---
Pt. alert and oriented X1 to person. Denies of any pain. Pt. agitated and stated, "I'm in my mom's garage". Afebrile. On oxymizer @2L/min. Skin warm to touch. Bilat soft wrist restraints on. Midline on left upper arm intact and patent. NG-tube on left nare intact with 0 residual. Will continue to monitor.
--- NOTE | 2022-02-14 08:30 | NUR ---
Pt seen and examined by Dr. Dweitt.
[2022-02-14] MEDS: QUEtiapine FUMARATE 25 MG TAB NG SCH ×2 (08:37→20:19)
[2022-02-14] MEDS: LACTULOSE 20 GM/30 ML UDC NG SCH (08:38)
[2022-02-14] MEDS: PANTOPRAZOLE 40 MG INJ VIAL IVP SCH (08:39)
[2022-02-14] MEDS: LORazepam 2 MG/ML VIAL IM/IVP PRN ×3 (08:40→23:19)
[2022-02-14] MEDS: CLONIDINE HYDROCHLORIDE 0.1 MG TAB PO SCH ×2 (08:42→20:19)
[2022-02-14] MEDS: MENTHOL/ZINC OXIDE 113 GM TUBE TP SCH (08:43)
[2022-02-14] MEDS ORDERED: VANCOMYCIN 1,500 MG in DEXTROSE 5% 500 ML IV SCH (09:00)
--- NOTE | 2022-02-14 11:24 | NUR ---
Seen and examined by Dr. Vázquez.
--- NOTE | 2022-02-14 12:25 | NUR ---
Bed bath given and pt tolerated well. Webb cath care, oral care, and [place] care rendered. Will continue to monitor.
[2022-02-14] MEDS: DEXT 5% / NACL 0.45% 1,000 ML IV SCH (13:23)
--- NOTE | 2022-02-14 13:47 | NUR ---
02/14/22 RD FOLLOW UP COMPLETED PLEASE REFER TO NUTRITION ASSESSMENT UNDER CARE ACTIVITY FOR ESTIMATED NUTRITIONAL NEEDS. 1. WHEN/IF MEDICALLY APPROPRIATE TO START ORAL INTAKE, RECOMMEND RENAL DIET WITH TEXTURE MODIFICATION PER SPEECH THERAPIST 2. IF PT FAILS SWALLOW EVAL, RECOMMEND CONTINUING NEPRO WITH A GOAL RATE OF 40 ML/HR -FWF: 10 ML Q4H PER MD -PROVIDES 1728 KCAL AND 78 GM PROTEINS, MEETING 100% OF ESTIMATED NUTRITIONAL NEEDS 3. RD TO FOLLOW-UP 2-3 DAYS, HIGH RISK MIGDALIA FINNEY RD
--- NOTE | 2022-02-14 14:25 | NUR ---
Seen by speech therapist.
--- NOTE | 2022-02-14 14:37 | NUR ---
Speech therapy evaluated the patient and recommended pureed and honey thickened fluids. Dr. Vázquez was paged to be informed.
--- NOTE | 2022-02-14 14:39 | NUR ---
Dr. Patrick returned the call. Dr. Patrick was advised of the Speech Therapist's recommendations post successful swallow eval. Dr. Patrick gave verbal order to go ahead and place a pureed diet with honey thickened fluids order, as recommended by speech therapy. Also, received a verbal order to remove NG tube.
--- NOTE | 2022-02-14 16:25 | NUR ---
NG-tube removed from left nare as per MD order. Pt tolerated well. No bleeding noted. Pt denies any pain or discomfort. Will continue to monitor.
--- NOTE | 2022-02-14 17:33 | NUR ---
Pt. agitated and kicking left leg in the air. Ativan given as per MD ordered. Will continue to monitor.
--- NOTE | 2022-02-14 19:06 | NUR ---
Gave report to Ryan for continuity of care. Turned and repositioned. Safety precautions implemented.
--- NOTE | 2022-02-14 19:33 | NUR ---
RECEIVED REPORT FROM [facility] TINA BAKER FOR CONTINUITY OF CARE. PT LAYING IN BED SEMI-FOWLERS POSITION. SOFT WRIST RESTRAINTS APPLIED FOR SAFETY. A0X2, TO NAME AND PLACE. RASS +1. RECEIVING O2 VIA NC 2L WITH O2 SATURATION OF 94%. SARAHI MIDLINE IN PLACE, PATENT AND INTACT, DRESSING DRY AND INTACT, INFUSING D5 1/2NS @50 ML/HR AND PRECEDEX @0.4 MCG/KG/HR. MELO CATH ALREADY IN PLACE @ [facility] DRAINING TO GRAVITY. SKIN IS NOT INTACT, SEE WOUND ASSESSMENT. PT DENIES HAVING PAIN AT THIS TIME. SAFETY MEASURES IN PLACE. BED IN LOWEST POSITION WITH CALL LIGHT WITHIN REACH. WILL CONTINUE TO MONITOR.
[2022-02-14] MEDS: OLANZapine 5 MG TAB NG SCH (20:19)
--- NOTE | 2022-02-14 21:25 | NUR ---
SCHEDULED MEDS ADMINISTERED ORDERED. NADR NOTED. VSS. PT TURNED AND REPOSITIONED. WILL CONTINUE TO MONITOR.
--- NOTE | 2022-02-14 23:43 | NUR ---
PT OBSERVED. LAYING IN BED WITH EYES CLOSED. CHEST RISE AND FALL PRESENT. VSS. PT TURNED REPOSITIONED. ORAL CARE GIVEN.
[2022-02-15] VITALS (10 sets, daily range): BP systolic 126–162; BP diastolic 40–102
[2022-02-15] MEDS: hydrALAZINE 20 MG/ML VIAL IVP PRN (00:30)
--- NOTE | 2022-02-15 01:12 | NUR ---
PT WITH SMALL/SCANT AMOUNT OF STOOL. PT CLEANED, NELSON CARE AND AM CARE PROVIDED. PT TURNED AND REPOSITIONED. WILL CONTINUE TO MONITOR.
[2022-02-15] MEDS: HYDRAGUARD CREAM TP SCH ×2 (01:17→13:57)
--- NOTE | 2022-02-15 04:00 | NUR ---
PT OBSERVED. ST ON MONITOR. CHEST RISE AND FALL PRESENT. NO S/S OF RESP DISTRESS WITH O2 SATURATION OF 92%. PT TURNED AND REPOSITIONED. WILL CONTINUE TO MONITOR.
[2022-02-15] MEDS: PIPERACILLIN/TAZOBACTAM 2.25 GM in DEXTROSE 5% 50 ML IV SCH ×3 (04:22→20:15)
[2022-02-15] MEDS: DEXMEDETOMIDINE HCL 400 MCG in NACL 0.9% 96 ML IV PRN (05:40)
[2022-02-15 06:39] LABS: BASOPHILS # (AUTO) 0.1 K/uL (0.00-0.22); EOSINOPHILS # (AUTO) 0.3 K/uL (0-0.4); EOSINOPHILS % (AUTO) 2.7 % (0.0-4.0); HEMATOCRIT 34.3 % (36-52); HEMOGLOBIN 11.6 g/dL (12.0-18.0); LYMPHOCYTES # (AUTO) 1.3 K/uL (2.0-11.5); LYMPHOCYTES % (AUTO) 11.5 % (20.5-51.1); MEAN CORPUSCULAR HEMOGLOBIN 32 pg (27-31); MEAN CORPUSCULAR HGB CONC 34 g/dL (33-37); MEAN CORPUSCULAR VOLUME 93.9 fL (80-94); MONOCYTES # (AUTO) 1.3 K/uL (0.8-1.0); MONOCYTES % (AUTO) 10.8 % (1.7-9.3); NEUTROPHILS # (AUTO) 8.6 K/uL (1.8-7.7); PLATELET COUNT (AUTO) 304 K/uL (140-450); RED BLOOD CELL COUNT(AUTO) 3.65 MIL/uL (4.20-6.10); RED CELL DISTRIBUTION WIDTH 13.1 % (11.6-13.7); WHITE BLOOD COUNT (AUTO) 11.6 K/uL (4.8-10.8)
--- NOTE | 2022-02-15 07:30 | NUR ---
RECEIVED BEDSIDE REPORT FROM NIGHT RN FOR CONTINUITY OF CARE. PT IN THE BED, HOB ELEVATED. RESTLESS AT TIMES, AOX2, VERBAL, ABLE TO FOLLOW SIMPLE COMMANDS AT TIMES. ON 2L NC, O2SAT 92%. ST ON THE MONITOR. F/C IN PLACE DRAINING TO GRAVITY. SARAHI MIDLINE IN PLACE, NO S/S, INFUSING PRECEDEX 0.4 MCG/KG/HR AND D5 1/2NS AT 50 ML/HR. SKIN NOT INTACT, REFER TO SKIN ASSESSMENT. GENERALIZED WEAKNESS. BL SOFT WRIST RESTRAINTS IN PLACE. NO S/S INJURY. ON STANDARD PRECAUTIONS. ALL SAFETY PRECAUTIONS MET. INITIAL ASSESSMENT COMPLETE, WILL CONTINUE TO CLOSELY MONITOR.
--- NOTE | 2022-02-15 08:20 | NUR ---
ASSISTED WITH BREAKFAST, TOLERATED PUREE DIET WELL, ATE 25%. DUE MEDS GIVEN.
[2022-02-15] MEDS: DEXT 5% / NACL 0.45% 1,000 ML IV SCH (08:27)
[2022-02-15] MEDS: PANTOPRAZOLE 40 MG INJ VIAL IVP SCH (08:27)
[2022-02-15] MEDS: LACTULOSE 20 GM/30 ML UDC NG SCH (08:27)
[2022-02-15] MEDS: QUEtiapine FUMARATE 25 MG TAB NG SCH ×2 (08:27→20:18)
[2022-02-15] MEDS: CLONIDINE HYDROCHLORIDE 0.1 MG TAB PO SCH ×2 (08:28→20:17)
[2022-02-15] MEDS: MENTHOL/ZINC OXIDE 113 GM TUBE TP SCH (08:28)
--- NOTE | 2022-02-15 08:30 | NUR ---
SEEN AND EXAMINED BY DR FALCON, NO NEW ORDERS
--- NOTE | 2022-02-15 09:00 | NUR ---
SEEN AND EXAMINED BY DR POPE, GAVE UPDATE TO PT'S MOTHER SULTANA FORD, ORDERED TO STOP PRECEDEX AND OBSERVE PT. MAY RESTART PRECEDEX IF PT GETS AGITATED Addendum: 02/15/22 at 1718 by Matty Marks RN ALSO ORDERED TO DOWNGRADE TO TELE IIF PT REMAINS CALM OFF PRECEDEX
--- NOTE | 2022-02-15 12:26 | NUR ---
ASSISTED WITH LUNCH, ATE 30%
--- NOTE | 2022-02-15 14:00 | NUR ---
CALLED DR LOCK'S OFFICE TO NOTIFY ABOUT CONSULT, LEFT MESSAGE, AWAITING CALL BACK
[2022-02-15] MEDS: HYDROcodone/APAP 5/325 MG 1 TAB TAB PO PRN (15:00)
--- NOTE | 2022-02-15 16:00 | NUR ---
DOWNGRADED TO TELE 110A
--- NOTE | 2022-02-15 17:00 | NUR ---
PT RESTING IN BED, NO RESPIRATORY DISTRESS, RESTLESS AND CONSTANTLY TURNING, SITTER AT BEDSIDE
[2022-02-15] MEDS: MORPHINE SULFATE 2 MG/ML SYR IVP PRN ×2 (18:45→22:59)
--- NOTE | 2022-02-15 18:46 | NUR ---
WITH C/O LEFT LEG WOUND PAIN, MORPHINE GIVEN ORDERED
--- NOTE | 2022-02-15 19:15 | NUR ---
RECEIVED REPORT FROM DAY SHIFT RN FOR CONTINUING PATIENT CARE. PATIENT RESTLESS IN BED. ABLE TO ANSWER SIMPLE QUESTIONS. LUNG SOUNDS CLEAR ON RA. BOWEL SOUNDS PRESENT. ORDER OBTAINED TO REMOVE MELO, MELO REMOVED, PT TOLERATED WELL. FALL PRECAUTIONS IN PLACE. PATIENT WITH PICC LINE TO SARAHI WITH D5 1/2NS INFUSING AT 50CC/HR. SKIN ON BACK INTACT. SKIN INNER BUTTOCK WITH EXCORIATION. LEFT HEEL WITH DRESSING INTACT. LEFT WRIST AREA WITH SMALL SCAB. WILL CONTINUE TO MONITOR.
[2022-02-15] MEDS: OLANZapine 5 MG TAB NG SCH (20:17)
--- NOTE | 2022-02-15 21:21 | NUR ---
SCHEDULED MEDS ADMINISTERED. CRUSHED WITH APPLESAUCE.
--- NOTE | 2022-02-15 21:50 | NUR ---
PT RESTLESS AND TRYING TO GET OUT OF BED. PRN ATIVAN GIVEN. WILL CONTINUE TO MONITOR.
[2022-02-15] MEDS: LORazepam 2 MG/ML VIAL IM/IVP PRN (21:53)
[2022-02-16] VITALS: BP 122/66
[2022-02-16] MEDS: LORazepam 2 MG/ML VIAL IM/IVP PRN ×6 (00:01→22:13)
[2022-02-16] MEDS: HYDRAGUARD CREAM TP SCH ×2 (01:13→13:15)
--- NOTE | 2022-02-16 02:00 | NUR ---
PT ASLEEP.BREATHING EQUAL AND UNLABORED. NO S/SX OF DISTRESS NOTED.WILL CONTINUE TO MONITOR.
[2022-02-16 04:00] VITALS: BP 148/89
[2022-02-16] MEDS: PIPERACILLIN/TAZOBACTAM 2.25 GM in DEXTROSE 5% 50 ML IV SCH ×3 (04:32→20:45)
--- NOTE | 2022-02-16 04:35 | NUR ---
SCHEDULED ANTIBIOTICS ADMINISTERED. NO DISTRESS NOTED.
[2022-02-16] MEDS: DEXT 5% / NACL 0.45% 1,000 ML IV SCH ×2 (04:40→16:32)
--- NOTE | 2022-02-16 05:15 | NUR ---
PT RESTLESS. PRN ATIVAN GIVEN. WILL CONTINUE TO MONITOR.
--- NOTE | 2022-02-16 07:13 | NUR ---
ENDORSED TO AM SHIFT NURSE FOR CONTINUITY OF CARE. PT IS STABLE.
--- NOTE | 2022-02-16 07:15 | NUR ---
RECEIVED REPORT FROM HEAD WAITER/WAITRESS BANQUET NURSE. PT IS RESTING IN BED AT THIS TIME. PT HAS A LEFT UA MIDLINE RUNNING D5 1/2 NS AT 50 ML/H. PT HAS BILATERAL CLEAR LUNG SOUNDS AND IS ON ROOM AIR. PT HAS SOFT WRIST RESTRAINS. PT HAS LEFT LOWER LEG ABRASION, LEFT UA SKIN TEAR AND RIGHT BUTTOCKS EXCORIATION. PT IS ON A PUREE DIET. ALL SAFETY PRECAUTIONS ARE IN PLACE. WILL CONTINUE TO MONITOR.
--- NOTE | 2022-02-16 07:48 | NUR ---
PT IS AGITATED AND UNDER STRESS, PER MD ORDERS ATIVAN HAS BEEN ADMINISTERED. WILL CONTINUE TO MONITOR.
[2022-02-16 07:56] LABS: ANION GAP 15.2 (8-16); CARBON DIOXIDE 24.2 mmol/L (21-32); CREATININE 1.5 mg/dL (0.6-1.3); POTASSIUM 3.4 mmol/L (3.5-5.1)
[2022-02-16 08:00] VITALS: BP 154/74
--- NOTE | 2022-02-16 08:00 | NUR ---
PT WAS GIVEN A BED BATH AND REPLACED ALL LINES AND GOWN.
[2022-02-16] MEDS: LACTULOSE 20 GM/30 ML UDC NG SCH (09:00)
[2022-02-16] MEDS: MORPHINE SULFATE 2 MG/ML SYR IVP PRN ×2 (09:10→18:02)
--- NOTE | 2022-02-16 09:10 | NUR ---
PT IS AGITATED AND IN PAIN, PER MD ORDERS MORPHINE HAS BEEN ADMINISTERED. WILL CONTINUE TO MONITOR.
[2022-02-16] MEDS: PANTOPRAZOLE 40 MG INJ VIAL IVP SCH (09:18)
[2022-02-16] MEDS: CLONIDINE HYDROCHLORIDE 0.1 MG TAB PO SCH ×2 (09:19→20:45)
[2022-02-16] MEDS: QUEtiapine FUMARATE 25 MG TAB NG SCH ×2 (09:19→20:50)
[2022-02-16] MEDS: MENTHOL/ZINC OXIDE 113 GM TUBE TP SCH (09:21)
--- NOTE | 2022-02-16 09:35 | NUR ---
PT O2 SAT WAS 82%, PER MD ORDERS NC AT 2L/MIN WAS PLACED. PT TOLERATED WELL AND WILL CONTINUE TO MONITOR.
[2022-02-16] MEDS: chlordiazePOXIDE 25 MG CAP PO SCH ×3 (09:45→16:31)
[2022-02-16 12:00] VITALS: BP 150/77
--- NOTE | 2022-02-16 12:04 | NUR ---
PT HAS GIVEN ANOTHER BED BATH DUE TO PT BEING INCONTINENT.
[2022-02-16] MEDS: POTASSIUM CHLORIDE 10 MEQ TABER PO PRN (14:32)
[2022-02-16 16:00] VITALS: BP 146/79
--- NOTE | 2022-02-16 17:50 | NUR ---
PT REMOVED HIS LEFT MIDLINE. A RIGHT FA 20G IV WAS INSERTED AND IS INTACT AND PATENT.
--- NOTE | 2022-02-16 19:30 | NUR ---
RECEIVED REPORT FROM DAY SHIFT NURSE, ASSUMED CARE. OBSERVED PATIENT IN BED IN NO ACUTE DISTRESS, PT NOTED TO BE RESTLESS CONSTANTLY KICKING IN BED. PT BREATHING ON NC AT 2 L/MIN O2 SAT 94%, AOX2, CONFUSED AND CONSTANT YELLING, SITTER AT BEDSIDE. IV SITE IN R FOREARM 20G RUNNING D5 1/2 NS AT 50 ML/HR, IV SITE DRY AND INTACT, PATENT. PT ON BILATERAL SOFT WRIST RESTRAINTS WITH NO SIGNS OF INJURY ON HIS WRIST OF EXTREMITIES. PT WITH LEFT FOOT ABRASION, AND LEFT LOWER ARM ABRASIONS. ALL SAFETY MEASURES IN PLACE, BED LOCKED AT LOWEST POSITION, CALL LIGHT WITHIN REACH. WILL CONTINUE TO CLOSELY MONITOR AND FOLLOW POC.
--- NOTE | 2022-02-16 19:36 | NUR ---
ENDORSED CARE TO AUTOMOBILE ASSEMBLY SUPERVISOR NURSE FOR CONTINUITY OF CARE.
--- NOTE | 2022-02-16 19:55 | NUR ---
ADMINISTERED ATIVAN PER PRN ORDERS FOR AGITATION. PT CONTINUES TO BE AGITATED, YELLING, AND CONSTANTLY KICKING IN BED. CONTINUES ON SOFT WRIST RESTRAINTS WITH SITTER AT BEDSIDE. WILL CONTINUE TO CLOSELY MONITOR AND FOLLOW POC.
[2022-02-16 20:00] VITALS: BP 151/86
[2022-02-16] MEDS: OLANZapine 5 MG TAB NG SCH (20:50)
[2022-02-17] VITALS: BP 134/96
[2022-02-17] MEDS: LORazepam 2 MG/ML VIAL IM/IVP PRN ×5 (00:56→21:05)
--- NOTE | 2022-02-17 00:56 | NUR ---
ADMINISTERED ATIVAN PER PRN ORDERS FOR AGITATION, PT CONTINUES TO YELL. PT IN NO ACUTE DISTRESS AT THIS TIME, CONTINUES ON NC AT 2 L/MIN. SOFT WRIST RESTRAINTS IN PLACE WITH NO INJURIES, SITTER AT BEDSIDE CONTINUOUSLY MONITORING. ALL STIMULI INCLUDING LIGHT, TV, AND NOISE HAVE BEEN TURNED DOWN. ALL SAFETY MEASURES IN PLACE, WILL CONTINUE TO CLOSELY MONITOR AND FOLLOW POC.
[2022-02-17] MEDS: HYDRAGUARD CREAM TP SCH ×2 (01:12→12:54)
[2022-02-17 04:00] VITALS: BP 149/89
[2022-02-17] MEDS: PIPERACILLIN/TAZOBACTAM 2.25 GM in DEXTROSE 5% 50 ML IV SCH ×3 (05:22→21:57)
--- NOTE | 2022-02-17 06:00 | NUR ---
PT IN NO APPARENT ACUTE DISTRESS, CONTINUES ON NC AT 2 L/MIN. CONTINUES RESTLESS IN BED WITH CONTINUOUS MOVEMENT. ATIVAN ADMINISTERED PER PRN ORDERS FOR AGITATION. SITTER CONTINUES AT BEDSIDE MONITORING. ALL SAFETY MEASURES IN PLACE, WILL CONTINUE TO CLOSELY MONITOR AND FOLLOW POC.
--- NOTE | 2022-02-17 07:20 | NUR ---
RECEIVED REPORT FROM PROMOTIONAL MARKETING ANALYST NURSE. PT IS RESTING IN BED AT THIS TIME. PT HAS A RIGHT FOREARM 20G IV RUNNING D5 1/2 NS AT 50 ML/H. PT HAS BILATERAL CLEAR LUNG SOUNDS AND IS ON 2 L/MIN NC WITH HUMIDIFIER. PT HAS SOFT WRIST RESTRAINS. PT HAS LEFT LOWER LEG ABRASION, LEFT UA SKIN TEAR AND RIGHT BUTTOCKS EXCORIATION. PT IS ON A PUREE DIET. ALL SAFETY PRECAUTIONS ARE IN PLACE. WILL CONTINUE TO MONITOR.
--- NOTE | 2022-02-17 07:30 | NUR ---
REPORT GIVEN TO DAY SHIFT NURSE, ENDORSED CARE. PT IN NO ACUTE DISTRESS.
[2022-02-17 07:37] LABS: BASOPHILS # (AUTO) 0.1 K/uL (0.00-0.22); BASOPHILS % (AUTO) 1.1 % (0.0-2.0); EOSINOPHILS # (AUTO) 0.5 K/uL (0-0.4); EOSINOPHILS % (AUTO) 4.6 % (0.0-4.0); HEMATOCRIT 36.8 % (36-52); HEMOGLOBIN 12.4 g/dL (12.0-18.0); LYMPHOCYTES # (AUTO) 1.4 K/uL (2.0-11.5); LYMPHOCYTES % (AUTO) 13.1 % (20.5-51.1); MEAN CORPUSCULAR HEMOGLOBIN 32 pg (27-31); MEAN CORPUSCULAR HGB CONC 34 g/dL (33-37); MEAN CORPUSCULAR VOLUME 94.2 fL (80-94); MONOCYTES # (AUTO) 1.1 K/uL (0.8-1.0); MONOCYTES % (AUTO) 10.4 % (1.7-9.3); NEUTROPHILS # (AUTO) 7.5 K/uL (1.8-7.7); NEUTROPHILS % (AUTO) 70.8 % (42.2-75.2); PLATELET COUNT (AUTO) 319 K/uL (140-450); RED BLOOD CELL COUNT(AUTO) 3.91 MIL/uL (4.20-6.10); RED CELL DISTRIBUTION WIDTH 13.1 % (11.6-13.7); WHITE BLOOD COUNT (AUTO) 10.6 K/uL (4.8-10.8)
[2022-02-17 08:00] VITALS: BP 154/82
[2022-02-17 08:02] LABS: ALBUMIN 2.5 g/dL (3.4-5.0); ANION GAP 14.2 (8-16); CARBON DIOXIDE 24.7 mmol/L (21-32); CREATININE 1.5 mg/dL (0.6-1.3); MAGNESIUM 2.3 mg/dL (1.8-2.4); POTASSIUM 3.9 mmol/L (3.5-5.1); TOTAL BILIRUBIN 0.5 mg/dL (0.0-1.0)
--- NOTE | 2022-02-17 09:13 | NUR ---
(02/17/22) RD FOLLOW UP COMPLETED PLEASE REFER TO NUTRITION PROGRESS NOTE UNDER CARE ACTIVITY FOR ESTIMATED NUTRITION NEEDS. RD RECOMMENDATIONS: 1.CONTINUE PUREE DIET WITH HONEY-THICK LIQUIDS TOLERATED 2.ENCOURAGE PO INTAKES OF >30% AT ALL MEALS TID 3.RD TO FOLLOW-UP 2-3 DAYS, HIGH RISK AMAIRANI MUNOZ MS, RDN
[2022-02-17] MEDS: QUEtiapine FUMARATE 25 MG TAB NG SCH ×2 (09:39→21:39)
[2022-02-17] MEDS: LACTULOSE 20 GM/30 ML UDC NG SCH (09:39)
[2022-02-17] MEDS: CLONIDINE HYDROCHLORIDE 0.1 MG TAB PO SCH ×2 (09:39→21:40)
[2022-02-17] MEDS: PANTOPRAZOLE 40 MG INJ VIAL IVP SCH (09:39)
[2022-02-17] MEDS: MENTHOL/ZINC OXIDE 113 GM TUBE TP SCH (09:41)
[2022-02-17] MEDS: chlordiazePOXIDE 25 MG CAP PO SCH ×3 (09:41→17:00)
[2022-02-17 12:00] VITALS: BP 158/88
[2022-02-17 16:00] VITALS: BP 111/69
--- NOTE | 2022-02-17 16:00 | NUR ---
GIRLFRIENSrinivas HERNANDES AT BEDSIDE.
--- NOTE | 2022-02-17 18:21 | NUR ---
ADMINISTERED ATIVAN PER MD ORDERS FOR AGITATION. WILL CONTINUE TO MONITOR.
--- NOTE | 2022-02-17 19:29 | NUR ---
ENDORSED CARE TO BALLISTICIAN NURSE FOR CONTINUITY OF CARE.
--- NOTE | 2022-02-17 19:30 | NUR ---
RECEIVED PATIENT JUVE RN FOR CONTINUITY OF CARE. PATIENT IS AGITATED AND CONFUSED. PATIENT ON BILATERAL WRIST RESTRAINS KICKING AT INTERNAL AUDIO STIMULI. PATIENT RESPONSE TO NURSING AGGRESSIVELY AND WITH BELLIGERENCE. PATIENT IS ON OXYGEN 2 LITER NASAL CANULA STATING AT 93% WITH CANULA REMOVED BECAUSE PATIENT MOVING HIS HEAD AGGRESSIVELY. WHEN NASAL CANULA IS ON HE SATS AT 95%. DRESSING ON LEFT ANKLE IS INTACT AND NO NOTED DRAINAGE. IV SITE ON RIGHT FORE ARM IS INTACT BUT IS GETTING RUBBED BY PATIENT CONTORTING HIS BODY TO PULL IT OUT. ALL SAFETY MEASURES IN PLACE. PATIENT IS ABLE TO TURN BUT NURSING WILL REPOSITION DUE TO RESTRAINTS FOR SAFETY FOR CARE. [email or web address]
--- NOTE | 2022-02-17 20:09 | NUR ---
Pt received with BUE , awake, restless, and combative trying to climb out of bed , thrashing in bed, pulled out iv infusing on RFA.and isiah staff with attempts to reinsert iv or reposition Patient. Pain management ineffective at this time. Md rack production worker notified with new order for [place]. ankle soft restraint.
--- NOTE | 2022-02-17 20:30 | NUR ---
Soft ankle not applied , per medical charge entry specialist , not appropriate on this unit. Continue to monitor with 1: sitter at bedside.
[2022-02-17 20:41] VITALS: BP 142/69
--- NOTE | 2022-02-17 21:29 | NUR ---
PATIENT WAS CLEANED AND GIVEN PERINEAL CARE. NURSING NOTED REDNESS TO RECTUM APPLY OINTMENT PER MD ORDERS. PATIENT CONTINUES TO BE VERBALLY AGGRESSIVE TOWARDS INTERNAL STIMULI. PATIENT CONTINUES TO KICK WILDLY AND SHOUTS OUT IN PAIN/DISCOMFORT. PATIENT SPITS AT NURSING DURING CARE. NURSING WAS ABLE TO GIVE VERBAL COMMANDS TO STOP FOR ORAL CARE, PATIENT WAS ABLE TO COMPLY. IV HAS BEEN PULLED OUT FROM PATIENT MOVING TO GET LEGS IN BETWEEN SIDE RAILS AND ABOVE HIS HEAD. CONTINUED MONITORING FOR SAFETY [email or web address]
[2022-02-17] MEDS: OLANZapine 5 MG TAB NG SCH (21:40)
[2022-02-17] MEDS: DEXT 5% / NACL 0.45% 1,000 ML IV SCH (22:20)
--- NOTE | 2022-02-17 23:00 | NUR ---
PATIENT REMAINS IN BILATER SOFT WRIST RESTRAINTS. PATIENT IS ASLEEP WITH BODY TURNED TO THE RIGHT SIDE. NURSING ATTEMPTED TO TURN PATIENT TO HIS RIGHT WITH PILLOWS AND PATIENT DECLINED. PATIENT HAS NASAL CANULA IN PLACE BREATHING UNLABORED AND EVEN. PATIENT REMAINS DRY AND KEPT CLEAN. NURSING WILL CONTINUE TO MONITOR FOR SAFETY. [email or web address]
[2022-02-18] VITALS: BP 131/66
[2022-02-18] MEDS: MORPHINE SULFATE 2 MG/ML SYR IVP PRN ×2 (00:49→05:22)
[2022-02-18] MEDS: HYDRAGUARD CREAM TP SCH ×2 (01:00→13:31)
--- NOTE | 2022-02-18 01:26 | NUR ---
PATIENT IN BED SCREAMING OUT. IV RESTARTED ON LEFT FOREARM, WITH EXTREME DIFFICULTY D/T PATIENT KICKING AND MOVING ABOUT. 20 UMAIR. PATIENT WAS CLEANED, CHANGED, REPOSITIONED, HYDRATED, AND GIVEN ORAL CARE. HEAD OF BED IS ELEVATED TO PREVENT ASPIRATION. BILATERAL UPPER RESTRAINT REMAIN INTACT. NURSING WILL CONTINUE TO MONITOR FOR SAFETY. [email or web address]
[2022-02-18] MEDS ORDERED: HALOPERIDOL IM 5 MG/ML VIAL IM PRN (01:35)
[2022-02-18] MEDS: HALOPERIDOL IM 5 MG/ML VIAL IM PRN (02:06)
[2022-02-18] MEDS ORDERED: LORazepam 2 MG/ML VIAL ONE (02:34)
--- NOTE | 2022-02-18 02:37 | NUR ---
PT AWAKE AND IRRITABLE/AGITATED W/ NO RESPIRATORY DISTRESS NOTED AT THIS TIME WILL CONTINUE TO MONITOR
--- NOTE | 2022-02-18 03:00 | NUR ---
Pt continued with episodes of yelling and crying out, difficult to console, meds as ordered ineffective, reported to Dr. Stafford accounting consultant, with new orders for Ativan 1mg iv/im q 4 hrs prn, and haldol 3mg im q 6 hrs prn, noted and carried put, continue to monitor on edgar. soft wrist restraints , released and repositioned q two hrs.
[2022-02-18 04:00] VITALS: BP 124/82
--- NOTE | 2022-02-18 05:29 | NUR ---
PATIENT IS STILL RESTLESS. FLINGING LEGS EVERY WHERE, PULLING OFF LEADS TO SUGAR REPROCESS OPERATOR HEAD, AND SLURRING WORDS TO INTERNAL AUDIO STIMULI. PATIENT REMAINS IN BILATERAL UPPER RESTRAINTS FOR SAFETY. NURSING NOTED IV HAS BEEN TAKEN OUT AGAIN FROM PATIENT CONSTANT RESTLESS MOVEMENT. VITAL SIGNS WERE TAKEN WITH MULTIPLE ATTEMPTS TO KICK NURSE. NURSING WILL CONTINUE TO MONITOR FOR SAFETY. [email or web address]
--- NOTE | 2022-02-18 05:32 | NUR ---
PATIENT PULLED OUT IV SITE AGAIN FROM RESTLESS MOVEMENT WHILE IN BILATERAL SOFT RESTRAINTS. THIS IS THE THIRD ATTEMPT DURING THIS SHIFT. PATIENT IS SEVERELY AGITATED AND UNSETTLED. NURSING WILL CONTINUE TO MONITOR FOR SAFETY MEASURES. PATIENT CAN MOVE IN THE BED AND ADJUST FOR COMFORT WHILE IN SECURED RESTRAINTS. [email or web address]
[2022-02-18 06:03] LABS: BASOPHILS # (AUTO) 0.1 K/uL (0.00-0.22); BASOPHILS % (AUTO) 0.7 % (0.0-2.0); EOSINOPHILS # (AUTO) 0.4 K/uL (0-0.4); EOSINOPHILS % (AUTO) 3.7 % (0.0-4.0); HEMATOCRIT 35.1 % (36-52); HEMOGLOBIN 11.7 g/dL (12.0-18.0); LYMPHOCYTES # (AUTO) 1.7 K/uL (2.0-11.5); LYMPHOCYTES % (AUTO) 14.8 % (20.5-51.1); MEAN CORPUSCULAR HEMOGLOBIN 32 pg (27-31); MEAN CORPUSCULAR HGB CONC 33 g/dL (33-37); MEAN CORPUSCULAR VOLUME 94.2 fL (80-94); MONOCYTES # (AUTO) 1.3 K/uL (0.8-1.0); MONOCYTES % (AUTO) 11.2 % (1.7-9.3); NEUTROPHILS # (AUTO) 8.2 K/uL (1.8-7.7); NEUTROPHILS % (AUTO) 69.6 % (42.2-75.2); PLATELET COUNT (AUTO) 339 K/uL (140-450); RED BLOOD CELL COUNT(AUTO) 3.72 MIL/uL (4.20-6.10); RED CELL DISTRIBUTION WIDTH 13.2 % (11.6-13.7); WHITE BLOOD COUNT (AUTO) 11.7 K/uL (4.8-10.8)
[2022-02-18] MEDS: PIPERACILLIN/TAZOBACTAM 2.25 GM in DEXTROSE 5% 50 ML IV SCH ×3 (06:18→20:47)
[2022-02-18 06:39] LABS: ALBUMIN 2.5 g/dL (3.4-5.0); ANION GAP 13.3 (8-16); CARBON DIOXIDE 26.4 mmol/L (21-32); CREATININE 1.5 mg/dL (0.6-1.3); MAGNESIUM 2.3 mg/dL (1.8-2.4); POTASSIUM 3.7 mmol/L (3.5-5.1); TOTAL BILIRUBIN 0.5 mg/dL (0.0-1.0)
--- NOTE | 2022-02-18 07:20 | NUR ---
ENDORSED TO LAMBERT CLARK (SITTER) THE PATIENT WAS RESTLESS ALL NIGHT. REMOVED HIS IV X 3. KICKED OFF ALL LINEN. DIFFICULT TO PUT PROTECTIVE MATERIAL FOR INCONTINENCE. PATIENT CAN KICK AND MOVE ENOUGH WITH RESTRAINTS TO GRAB OR HIT. NASAL CANULA IN PLACE WITH OXYGEN AT 2 LITERS. NURSING WILL CONTINUE TO MONITOR FOR SAFETY. [email or web address]
--- NOTE | 2022-02-18 07:25 | NUR ---
RECEIVED REPORT FROM BOOT AND SADDLE REPAIR PERSON NURSE FOR CONTINUITY OF CARE. PATIENT VERY RESTLESS ON BOTH WRIST SOFT WRIST RESTRAINT. ON ONE ON ONE MONITORING 02 AT 2L /MIN VIA NASAL CANULA. IV AT RIGHT WRIST RUNNING AT 50CC/HOUR.
[2022-02-18 08:00] VITALS: BP 144/70
--- NOTE | 2022-02-18 08:30 | NUR ---
PT AT BED SIDE AND DO THERAPY ON HIM.
[2022-02-18] MEDS: QUEtiapine FUMARATE 25 MG TAB NG SCH ×2 (09:33→21:04)
[2022-02-18] MEDS: CLONIDINE HYDROCHLORIDE 0.1 MG TAB PO SCH ×2 (09:34→21:05)
[2022-02-18] MEDS: chlordiazePOXIDE 25 MG CAP PO SCH ×3 (09:34→17:26)
[2022-02-18] MEDS: LACTULOSE 20 GM/30 ML UDC NG SCH (09:35)
[2022-02-18] MEDS: MENTHOL/ZINC OXIDE 113 GM TUBE TP SCH (09:36)
--- NOTE | 2022-02-18 09:48 | NUR ---
GIVEN ALL ORAL AND SUBCUTANEOUS MEDICATION AND SPOON FED 1 CUP OF APPLE JUICE AND FEW SPOONFUL OF HIS BREAKFAST. TOLERATED WELL. NO COUGH OR CHOCKING.
[2022-02-18] MEDS: PANTOPRAZOLE 40 MG INJ VIAL IVP SCH (09:51)
--- NOTE | 2022-02-18 10:40 | NUR ---
CALLED PSYCHIATRIST LEFT MESSAGE FOR CONSULT. WAITING FOR RESPONSE.
[2022-02-18 12:00] VITALS: BP 119/79
--- NOTE | 2022-02-18 12:10 | NUR ---
PATIENT ON BED ASLEEP NO DISTRESS NOTED AT THIS TIME. ALL SAFETY MEASURE IN PLACE.
--- NOTE | 2022-02-18 13:05 | NUR ---
WOUND CARE RE-EVALUATION NOTE: IMPROVING. MULTIPLE SKIN ALTERATION ABRASIONS/SKIN TEARS FROM FRICTION DUE TO PATIENT'S FREQUENT MOVING FROM RESTLESS AND CONFUSED BEHAVIOR. SOFT WRIST RESTRAINTS IN PLACE, DEVICES REMOVED AND REAPPLIED, NO SKIN BREAKDOWN NOTED. LEFT FOREARM AND LEFT LOWER LEG SKIN TEARS/ABRASIONS DRESSINGS DRY AND CLEAN. RIGHT BUTTOCK SKIN THIN ABRASIONS 4X2CM SUPERFICIAL DEPTH, NO S/S OF INFECTION,AREA DRY AND CLEAN, FOAM DRESSING APPLIED. CONTINUE TO FOLLOW PRESSURE INJURY PREVENTION INTERVENTIONS. PT IS RE-POSITION, LINENS AND PADS ARE FLAT AND SMOOTH. RECOMMENDATIONS - CONTINUE WITH CURRENT PLAN OF CARE AND TREATMENTS. DISCUSSED WITH PRIMARY RN. -APPLY HYDRAGUARD TO BUTTOCKS BID AND PRN IF SOILING. -APPLY VERSATEL DRESSING TO LEFT FOREARM AND LEFT LOWER LEG Q5DAYS AND PRN IF SOILING -POSITIONING: TURN AND REPOSITION PATIENT Q 2H OR SOONER USE PILLOWS TO KEEP BONY PROMINENCES FROM DIRECT CONTACT WITH SURFACES USE REPOSITIONING WEDGES TO PROVIDE 30-DEGREE ANGLE FOR SIDE LYING POSITIONS OFFLOADING OR FOAM DRESSING TO ALL TUBING TO PREVENT MEDICAL DEVICES RELATED PRESSURE INJURY -RE-EVALUATING AND MANAGING INCONTINENCE MONITOR SKIN CONDITION DURING POSITION CHANGE DO NOT MASSAGE REDNESS, BONY PROMINENCES, DO NOT USE DONUT-TYPE DEVICES FREQUENT NELSON-CARE AND PROVIDE BARRIER CREAMS PRN IF SOILING MOISTURE CONTROL BY OFFER BED AREVALO/URINAL /ABSORBENT PAD TO WICK AND HOLD MOISTURE. KEEP SKIN DRY AND PROTECT FROM FRICTION -MANAGE FRICTION/SHEAR/MOBILITY KEEP HOB AT THE LOWEST LEVEL OF ELEVATION NO MORE THAN 30 DEGREE UNLESS OTHERWISE CONTRAINDICATED USE LIFT SHEET OR TRANSFER DEVICE TO MOVE PATIENT AND PREVENT LATERAL SHEER. PROTECT HEELS, ELBOWS BONY PROMINENCES WITH SKIN BERRIES OR FOAM DRESSING IF EXPOSED TO FRICTION OFFLOAD BILATERAL HEELS BY PLACING PILLOWS UNDER CALVES AT ALL TIMES, UNLESS OTHERWISE CONTRAINDICATED -PRESSURE REDISTRIBUTION SURFACE THERAPY -NUTRITION: PLEASE FOLLOW RD RECOMMENDATIONS AND OFFER NUTRITION SUPPLEMENTS IF ORDERED. PLEASE CONTACT WOUND CARE NURSE FOR ANY QUESTION AND CHANGE OF WOUND CONDITION.
--- NOTE | 2022-02-18 15:00 | NUR ---
PATIENT ON BED ASLEEP. IV RUNNING AT 50 CC/HOUR . NO FLUID OVERLOAD. IV SITE INTACT NO SIGN AND SYMPTOMS OF INFECTION. ALL SAFETY MEASURE IN PLACE.
[2022-02-18 16:00] VITALS: BP 150/65
[2022-02-18] MEDS: DEXT 5% / NACL 0.45% 1,000 ML IV SCH (16:40)
--- NOTE | 2022-02-18 17:00 | NUR ---
PATIENT AWAKE CHANGED AND GAVE APPLE JUICE AND GIVEN LIBRIUM S ORDER.
--- NOTE | 2022-02-18 19:15 | NUR ---
AT BED SIDE STILL NOTED WITH KICKING AND RESTLESSNESS GAVE REPORT TO HEAD CLEANING PORTER NURSE FOR CONTINUITY OF CARE.
--- NOTE | 2022-02-18 19:16 | NUR ---
RECEIVED ENDORSEMENT FROM KEN BERMAN FOR CONTINUITY OF CARE. PT IS AWAKE AND STABLE IN BED. A&0X1. CONFUSION NOTED. REORIENTED TO TIME, PLACE, AND DATE. FLACC=0. ON 2L VIA NC WITH NO APPARENT S/SX OF ACUTE DISTRESS. RESPIRATIONS EVEN AND UNLABORED. IV SITE TO RFA 20G IS PATENT/INTACT WITH D5NS1/2 INFUSING AT 50 ML/HR. PT IS ON BEDREST WITH SOFT WRIST RESTRAINTS. ORDER IS ACTIVE. AT BEDSIDE. SITTER PRESENT. WHITE COMMUNICATION BOARD AND POC UPDATED. ALL SAFETY MEASURES IN PLACE. BED IN LOW/LOCKED POSITION. CALL LIGHT WITHIN REACH. WILL CONTINUE TO MONITOR.
[2022-02-18 20:00] VITALS: BP 152/81
[2022-02-18] MEDS: OLANZapine 5 MG TAB NG SCH (21:04)
--- NOTE | 2022-02-18 21:05 | NUR ---
ADMINISTERED SCHEDULED MEDS PER MD ORDER. TOLERATED WELL. DENIES PAIN. RESPIRATIONS EVEN AND UNLABORED WITH NO APPARENT S/SX OF ACUTE DISTRESS. SNACKS PROVIDED. SITTER PRESENT. WHITE COMMUNICATION BOARD UPDATED. ALL SAFETY MEASURES IN PLACE. CALL LIGHT WITHIN REACH. WILL CONTINUE TO MONITOR.
--- NOTE | 2022-02-18 22:00 | NUR ---
Patient's Plan of Care was discussed and reviewed with AIR CONDITIONING UNIT TESTER: BRADY SUÁREZ
--- NOTE | 2022-02-18 23:05 | NUR ---
CHECKED PT. STABLE AND PT. PT APPEARS TO BE CALM. RECONNECTED NASAL CANNULA. DENIES PAIN. RESPIRATIONS EVEN AND UNLABORED WITH NO APPARENT S/SX OF ACUTE DISTRESS. SITTER PRESENT. WHITE COMMUNICATION BOARD UPDATED. ALL SAFETY MEASURES IN PLACE. CALL LIGHT WITHIN REACH. WILL CONTINUE TO MONITOR.
[2022-02-19] VITALS: BP 127/80
[2022-02-19] MEDS: HALOPERIDOL IM 5 MG/ML VIAL IM PRN (00:32)
--- NOTE | 2022-02-19 00:36 | NUR ---
PT IS AGITATED AND CONTINUES TO VERBALIZE LOUD INCOHERENT WORDS. ADMINISTERED HALDOL IM PER PRN ORDER. TOLERATED WELL.
--- NOTE | 2022-02-19 01:05 | NUR ---
STABLE AND ASLEEP. CHEST IS RISING AND FALLING EVENLY. RESPIRATIONS EVEN AND UNLABORED WITH NO APPARENT S/SX OF ACUTE DISTRESS. WHITE COMMUNICATION BOARD UPDATED. SITTER PRESENT. ALL SAFETY MEASURES IN PLACE. CALL LIGHT WITHIN REACH. WILL CONTINUE TO MONITOR.
[2022-02-19] MEDS: HYDRAGUARD CREAM TP SCH ×2 (01:20→13:11)
--- NOTE | 2022-02-19 03:05 | NUR ---
PT IS STABLE AND AWAKE. PT IS QUIET IN BED WITH MINIMAL MOVEMENT. FLACC=0. RESPIRATIONS EVEN AND UNLABORED WITH NO APPARENT S/SX OF ACUTE DISTRESS. WHITE COMMUNICATION BOARD UPDATED. SITTER PRESENT. ALL SAFETY MEASURES IN PLACE. CALL LIGHT WITHIN REACH. WILL CONTINUE TO MONITOR.
[2022-02-19 04:00] VITALS: BP 119/93
--- NOTE | 2022-02-19 05:05 | NUR ---
CLEANED AND CHANGED PT. TOLERATED WELL. DENIES PAIN. RESPIRATIONS EVEN AND UNLABORED WITH NO APPARENT S/SX OF ACUTE DISTRESS. ALL NEEDS MET. WHITE COMMUNICATION BOARD UPDATED. SITTER PRESENT. ALL SAFETY MEASURES IN PLACE. CALL LIGHT WITHIN REACH. WILL CONTINUE TO MONITOR.
[2022-02-19] MEDS: PIPERACILLIN/TAZOBACTAM 2.25 GM in DEXTROSE 5% 50 ML IV SCH ×3 (05:06→20:04)
[2022-02-19 05:56] LABS: ALBUMIN 2.6 g/dL (3.4-5.0); ANION GAP 11.7 (8-16); CARBON DIOXIDE 28.1 mmol/L (21-32); CREATININE 1.4 mg/dL (0.6-1.3); MAGNESIUM 2.2 mg/dL (1.8-2.4); POTASSIUM 3.8 mmol/L (3.5-5.1); TOTAL BILIRUBIN 0.5 mg/dL (0.0-1.0)
[2022-02-19 06:01] LABS: BASOPHILS # (AUTO) 0.1 K/uL (0.00-0.22); BASOPHILS % (AUTO) 0.8 % (0.0-2.0); EOSINOPHILS # (AUTO) 0.6 K/uL (0-0.4); EOSINOPHILS % (AUTO) 4.1 % (0.0-4.0); HEMATOCRIT 34.9 % (36-52); HEMOGLOBIN 11.8 g/dL (12.0-18.0); LYMPHOCYTES # (AUTO) 1.5 K/uL (2.0-11.5); LYMPHOCYTES % (AUTO) 10.8 % (20.5-51.1); MEAN CORPUSCULAR HEMOGLOBIN 32 pg (27-31); MEAN CORPUSCULAR HGB CONC 34 g/dL (33-37); MEAN CORPUSCULAR VOLUME 94.3 fL (80-94); MONOCYTES # (AUTO) 1.5 K/uL (0.8-1.0); MONOCYTES % (AUTO) 10.5 % (1.7-9.3); NEUTROPHILS # (AUTO) 10.3 K/uL (1.8-7.7); NEUTROPHILS % (AUTO) 73.8 % (42.2-75.2); PLATELET COUNT (AUTO) 390 K/uL (140-450); RED BLOOD CELL COUNT(AUTO) 3.71 MIL/uL (4.20-6.10)
--- NOTE | 2022-02-19 07:10 | NUR ---
ENDORSED PT TO TITO BERMAN FOR CONTINUITY OF CARE. PT IS STABLE.
--- NOTE | 2022-02-19 07:11 | NUR ---
RECEIVED REPORT FROM FILTER SCREEN CLEANER NURSE FOR CONTINUITY OF CARE. PT IN BED AT THIS TIME THRASHING ABOUT. PT HAS 1:1 SITTER FOR SAFETY. PT IS ON 2L 02 VIA NC. PT IS ON PUREE DIET. PT HAS IV TO RFA 20G. PT HAS MULTIPLE SKIN TEARS AND REDNESS, ALL DOCUMENTED. CALL LIGHT WITHIN REACH. ALL SAFETY MEASURES IN PLACE. WILL CONTINUE TO MONITOR.
[2022-02-19 08:00] VITALS: BP 124/76
[2022-02-19] MEDS: LACTULOSE 20 GM/30 ML UDC NG SCH (09:22)
[2022-02-19] MEDS: QUEtiapine FUMARATE 25 MG TAB NG SCH ×2 (09:22→20:06)
[2022-02-19] MEDS: chlordiazePOXIDE 25 MG CAP PO SCH ×3 (09:23→20:09)
[2022-02-19] MEDS: CLONIDINE HYDROCHLORIDE 0.1 MG TAB PO SCH ×2 (09:23→20:07)
[2022-02-19] MEDS: MENTHOL/ZINC OXIDE 113 GM TUBE TP SCH (09:24)
--- NOTE | 2022-02-19 09:25 | NUR ---
ADMINISTERED ALL SCHEDULED MEDICATIONS. EDUCATED PT REGARDING MEDS ADMINISTERED. NO REPLY FROM PT. PT IS AGITATED AT THIS TIME. WILL CONTINUE TO MONITOR.
[2022-02-19] MEDS: PANTOPRAZOLE 40 MG INJ VIAL IVP SCH (09:42)
--- NOTE | 2022-02-19 09:43 | NUR ---
IV MEDICATION ADMINISTERED BY TINA MASCORRO. WILL CONTINUE TO MONITOR.
[2022-02-19 12:00] VITALS: BP 131/72
--- NOTE | 2022-02-19 12:00 | NUR ---
DC PLANNING ASHISH ATTEMPTED TO CONTACT PATIENT'S FAMILY TO DISCUSS AND GATHER HIS COLLATERAL INFORMATION. ASHISH CALL PATIENT'S MOTHER LOGAN WEINBERG AT HOWEVER; MOTHER WAS UNABLE TO ANSWER THE PHONE AND SW LEFT HER A MGS. ASHISH ALSO ATTEMPTED TO CONTACT PATIENT'S SIGNIFICANT OTHER ROSEANN SHARMA AT BUT NO ONE ANSWER THE CALL SW WAS UNABLE TO LEAVE A MSG DUE TO VOICEMAIL BEEN FULL. ASHISH/CM WILL FOLLOW UP NEEDED. Addendum: 02/22/22 at 1404 by Karla MOTA ASHISH CONTACTED ATTEMPTED TO CALL KEN JHA AT [phone] FROM [facility] TO DISCUSS PATIENT'S REQUEST ORDER FOR PSYCH EVAL TO BE DONE. KEN WAS NOT AVAILABLE AND ASHISH LEFT HER A VOICE MAIL MSG WITH DIRECT CONTACT NUMBER AND REQUEST FOR A CALL BACK. ASHISH/CM WILL FOLLOW UP NEED.
[2022-02-19] MEDS: DEXT 5% / NACL 0.45% 1,000 ML IV SCH (13:06)
[2022-02-19] MEDS: LORazepam 2 MG/ML VIAL IM/IVP PRN (13:22)
--- NOTE | 2022-02-19 13:27 | NUR ---
IV ANTIBIOTIC ADMINISTERED BY RN. PT AT THIS TIME IS ALSO VERY AGITATED, KICKING AND YELLING. RN ADMINISTERED ATIVAN PER MD ORDER. WILL CONTINUE TO MONITOR.
--- NOTE | 2022-02-19 14:41 | NUR ---
02/19/22 RD FOLLOW UP COMPLETED PLEASE REFER TO NUTRITION ASSESSMENT UNDER CARE ACTIVITY FOR ESTIMATED NUTRITIONAL NEEDS. 1. CONTINUE PUREE DIET WITH HONEY-THICK LIQUIDS TOLERATED 2. RECOMMEND NEPRO BID WITH THICKENER PER RD PROTOCOL 3. RD TO FOLLOW-UP 2-3 DAYS, HIGH RISK MIGDALIA FINNEY RD
[2022-02-19 16:00] VITALS: BP 144/76
--- NOTE | 2022-02-19 16:25 | NUR ---
DID ROUNDS ON PT. ASSISTED WITH CHANGING PT. PT CONTINUES WITH AGITATION. WILL CONTINUE TO MONITOR.
--- NOTE | 2022-02-19 19:16 | NUR ---
ENDORSED PT TO SECURITY INSTALLER NURSE FOR CONTINUITY OF CARE. ALL NEEDS MET THROUGHOUT SHIFT. PT IS STABLE.
--- NOTE | 2022-02-19 19:50 | NUR ---
PT LAYING IN BED AGITATED WITH HOB ELEVATED, BS CLEAR/SCATTERED CRACKLES THROUGHOUT, NO SIGNS OF RESPIRATORY DISTRESS NOTED AT THIS TIME. PT IS CURRENTLY SATING 90% ON 2LPM NC. PT IS NOTED TO HAVE A STRONG NON PRODUCTIVE COUGH. WILL CONTINUE TO MONITOR.
[2022-02-19 20:00] VITALS: BP 137/78
--- NOTE | 2022-02-19 20:00 | NUR ---
PT REPORT RECEIVED. CARE TAKEN OVER. PT REMAINS IN BED, THRASHING AROUND- INTERMITTENTLY PUTS LEGS OVER RALE AND IS EDUCATED TO PLEASE PLACE LEGS BACK IN THE BED, PT CONTINUES TO BE EXTREMELY RESTLESS AND IS WITH RESTRAINTS. RESTRAINTS REMOVED PER PROTOCOL AND CHECKED SKIN -NO INJURIES NOTED. PT CONFUSED, UNABLE TO ANSWER YEAR OR WHERE HE IS. PT DOES RESPOND TO NAME BEING CALLED. SITTER AT THE BEDSIDE. VITALS REMAIN STABLE. WILL CONTINUE TO MONITOR.
[2022-02-19] MEDS: OLANZapine 5 MG TAB NG SCH (20:06)
[2022-02-20] VITALS: BP 121/81
[2022-02-20] MEDS: HYDRAGUARD CREAM TP SCH ×2 (01:01→12:21)
--- NOTE | 2022-02-20 02:17 | NUR ---
PT ASLEEP. ON 2L NC,O2 SAT AT 98%. BREATHING EQUAL AND UNLABORED.CALL LIGHT WITHIN REACH. WILL CONTINUE TO MONITOR.
[2022-02-20] MEDS: LORazepam 2 MG/ML VIAL IM/IVP PRN ×2 (03:23→21:55)
[2022-02-20] MEDS: DEXT 5% / NACL 0.45% 1,000 ML IV SCH (03:52)
[2022-02-20 04:00] VITALS: BP 153/85
[2022-02-20] MEDS: PIPERACILLIN/TAZOBACTAM 2.25 GM in DEXTROSE 5% 50 ML IV SCH ×3 (04:02→20:35)
--- NOTE | 2022-02-20 04:05 | NUR ---
PT RESTLESS AND CONTINUES TO THRASH IN BED. RESTRAINTS CONTINUE TO BE RELEASED PER PROTOCOL, NO INJURIES NOTED. ATIVAN ADMINISTERED AND PT HAS CALMED DOWN A LITTLE. PT INTERMITTENTLY SLEEPING. VITALS REMAIN STABLE. NEW IVF AND TUBING HUNG. OFFERED PT PO INTAKE, PT DRANK A LITTLE BIT OF THICKENED WATER. CONTINUE TO MONITOR.
[2022-02-20 06:00] LABS: BASOPHILS # (AUTO) 0.1 K/uL (0.00-0.22); EOSINOPHILS # (AUTO) 0.7 K/uL (0-0.4); EOSINOPHILS % (AUTO) 6.4 % (0.0-4.0); HEMATOCRIT 36.3 % (36-52); HEMOGLOBIN 12.3 g/dL (12.0-18.0); LYMPHOCYTES # (AUTO) 1.9 K/uL (2.0-11.5); LYMPHOCYTES % (AUTO) 17.8 % (20.5-51.1); MEAN CORPUSCULAR HEMOGLOBIN 32 pg (27-31); MEAN CORPUSCULAR HGB CONC 34 g/dL (33-37); MEAN CORPUSCULAR VOLUME 94.6 fL (80-94); MONOCYTES # (AUTO) 1.2 K/uL (0.8-1.0); MONOCYTES % (AUTO) 11.4 % (1.7-9.3); NEUTROPHILS # (AUTO) 6.6 K/uL (1.8-7.7); NEUTROPHILS % (AUTO) 63.4 % (42.2-75.2); PLATELET COUNT (AUTO) 416 K/uL (140-450); RED BLOOD CELL COUNT(AUTO) 3.84 MIL/uL (4.20-6.10); RED CELL DISTRIBUTION WIDTH 13.4 % (11.6-13.7); WHITE BLOOD COUNT (AUTO) 10.5 K/uL (4.8-10.8)
[2022-02-20 06:23] LABS: ALBUMIN 2.5 g/dL (3.4-5.0); CARBON DIOXIDE 28.6 mmol/L (21-32); CREATININE 1.5 mg/dL (0.6-1.3); POTASSIUM 3.6 mmol/L (3.5-5.1); TOTAL BILIRUBIN 0.4 mg/dL (0.0-1.0)
--- NOTE | 2022-02-20 06:45 | NUR ---
PT IS STABLE. NO ACUTE EVENTS THROUGHOUT THE NIGHT. NO S/SX OF DISTRESS OF THE MOMENT. ALL NEEDS ATTENDED. ALL PRECAUTIONS IN PLACE. WILL ENDORSE TO AM SHIFT NURSE.
--- NOTE | 2022-02-20 07:30 | NUR ---
RECEIVED PT FROM NIGHT RN, PT IS AWAKE, AND CONFUSED, ON SOFT WRIST RESTRAINT FOR SAFETY, SITTER ON BEDSIDE IV LINE NOTED ON THE RFA G. 20 WITH D5NS INFUSING AT 50ML/HR, PT IS ON O2 2L NC, HAS A LEFT LOWER SMITH SKIN TEAR COVERED WITH FOAM DRESSING, NO SIGN OF DISTRESS NOTED AND WILL CONTINUE TO MONITOR PT.,
[2022-02-20 08:00] VITALS: BP 141/69
[2022-02-20] MEDS: QUEtiapine FUMARATE 25 MG TAB NG SCH ×2 (09:27→21:26)
[2022-02-20] MEDS: chlordiazePOXIDE 25 MG CAP PO SCH ×2 (09:28→21:29)
[2022-02-20] MEDS: PANTOPRAZOLE 40 MG INJ VIAL IVP SCH (09:28)
[2022-02-20] MEDS: LACTULOSE 20 GM/30 ML UDC NG SCH (09:28)
[2022-02-20] MEDS: CLONIDINE HYDROCHLORIDE 0.1 MG TAB PO SCH ×2 (09:33→21:28)
[2022-02-20] MEDS: MENTHOL/ZINC OXIDE 113 GM TUBE TP SCH (09:35)
--- NOTE | 2022-02-20 10:30 | NUR ---
PAGED THE OFFICE OF DR LOCK, LEFT MESSAGE, AWAITING RESPONSE
[2022-02-20 12:00] VITALS: BP 129/83
--- NOTE | 2022-02-20 13:20 | NUR ---
PT WAS CLEANED UP AND WAS ASSISTED BY 4 PERSONS DUE TO PT IS COMBATIVE AND NOT COOPERATIVE.
--- NOTE | 2022-02-20 13:40 | NUR ---
PT'S LEFT LOWER SMITH WAS ASSESSED AND CLEANED AND WAS REINFORCED WITH DRESSING.
[2022-02-20 16:00] VITALS: BP 125/89
--- NOTE | 2022-02-20 16:27 | NUR ---
PT IS SLEEPING NOW. CALM AND SITTER ON BEDSIDE.
--- NOTE | 2022-02-20 19:15 | NUR ---
ENDORSED PT TO NIGHT RN FOR CONTINUITY OF CARE, PT IS STABLE AT THIS TIME.
--- NOTE | 2022-02-20 19:24 | NUR ---
PT WAS SEEN AND ASSESSED. PT IS ON 2L NASAL CANNULA WITH SPO2 OF 93%. PT IS SLEEPING IN BED AND NO NOTED RESPIRATORY DISTRESS AT THIS TIME. FAMILY AT BEDSIDE. WILL CONTINUE TO MONITOR PT.
--- NOTE | 2022-02-20 19:30 | NUR ---
RECEIVED PT REPORT FROM AM NURSE. 1:1 SITTER AT BEDSIDE. AT BEDSIDE. PT SLEEPING RR EVEN AND ALL UNLABORED WITH EQUAL CHEST RISE. NAD AT THIS TIME.
[2022-02-20 20:00] VITALS: BP 141/69
[2022-02-20] MEDS: OLANZapine 5 MG TAB NG SCH (21:26)
--- NOTE | 2022-02-20 21:40 | NUR ---
IV INFILTRATED. R ARM SWOLLEN. PT WILD SWINGING FEET OVER SIDE RAILS. 1:1 SITTER AT BEDSIDE. ATIVAN 1MG IM GIVEN IN L DELTOID. PT ROARING" CUT IT OUT". SOFT WRIST RESTRAINTS IN PLACE. ALL SAFETY MEASURES MAINTAINED.
--- NOTE | 2022-02-20 22:50 | NUR ---
PT CONTINUES TO BE DISRUPTIVE/ COMBATIVE, BELLIGERENT TO FEMALE STAFF. CONTINUESTRIKE OUT HITTING WITH FEET. SOFT WRIST RESTRAINTS REMAIN IN PLACE. ATIVAN NOT EFFECTIVE. HALDOL 3MG IM GIVEN IN R DELTOID WITH 3 STAFF ASSIST. PT WILL NOT LET STAFF DO NELSON CARE OR OTHER COMFORT MEASURES. 1:1 SITTER REMAINS IN ROOM. ALL SAFETY MEASURES IN PLACE. CONTINUE FREQ ROUNDS.
[2022-02-20] MEDS: HALOPERIDOL IM 5 MG/ML VIAL IM PRN (22:55)
[2022-02-21] VITALS: BP 157/97
--- NOTE | 2022-02-21 00:30 | NUR ---
PT CONTINUES TO BE COMBATIVE. FLAILING HIS LEGS. TRYING TO HIT STAFF. 1:12 SITTER IN ROOM. TAKES 3 STAFF TO CHANGE AND REPOSITION PT. PT STILL HAS NO IV ACCESS DUE TO HIS CONTINUOUS SQUIRMING. L SMITH DRESSING INTACT. UNABLE TO CHANGE OR TAKE PICTURES DUE TO HIS CONSTANT MOVING AND COMBATIVE BEHAVIOR. CONTINUE WITH FREQ ROUNDS.
[2022-02-21] MEDS: HYDRAGUARD CREAM TP SCH ×2 (01:00→13:00)
[2022-02-21 04:00] VITALS: BP 139/72
[2022-02-21] MEDS: DEXT 5% / NACL 0.45% 1,000 ML IV SCH (04:35)
[2022-02-21] MEDS: LACTULOSE 20 GM/30 ML UDC NG SCH (04:38)
[2022-02-21] MEDS: PIPERACILLIN/TAZOBACTAM 2.25 GM in DEXTROSE 5% 50 ML IV SCH ×3 (04:41→20:47)
--- NOTE | 2022-02-21 05:00 | NUR ---
PT RESTING. REMINDED PT TO KEEP MITTENS ON A CAUTION NOT TO PULL AT TUBES ESPECIALLY HIS WOLF CATHETER. MEDS TAKEN WITH NEPHRO SHAKE. PT DRANK IT ALL. ALL SAFETY MEASURES IN PLACE.PT STABLE.
[2022-02-21 05:19] LABS: ALBUMIN 2.6 g/dL (3.4-5.0); CARBON DIOXIDE 26.6 mmol/L (21-32); CREATININE 1.5 mg/dL (0.6-1.3); MAGNESIUM 2.1 mg/dL (1.8-2.4); POTASSIUM 3.6 mmol/L (3.5-5.1); TOTAL BILIRUBIN 0.4 mg/dL (0.0-1.0)
[2022-02-21 05:57] LABS: BASOPHILS # (AUTO) 0.1 K/uL (0.00-0.22); BASOPHILS % (AUTO) 1.1 % (0.0-2.0); EOSINOPHILS # (AUTO) 0.6 K/uL (0-0.4); EOSINOPHILS % (AUTO) 4.6 % (0.0-4.0); HEMATOCRIT 36.6 % (36-52); HEMOGLOBIN 12.2 g/dL (12.0-18.0); LYMPHOCYTES # (AUTO) 1.5 K/uL (2.0-11.5); LYMPHOCYTES % (AUTO) 12.3 % (20.5-51.1); MEAN CORPUSCULAR HEMOGLOBIN 32 pg (27-31); MEAN CORPUSCULAR HGB CONC 33 g/dL (33-37); MEAN CORPUSCULAR VOLUME 94.5 fL (80-94); MONOCYTES # (AUTO) 1.1 K/uL (0.8-1.0); MONOCYTES % (AUTO) 9.5 % (1.7-9.3); NEUTROPHILS # (AUTO) 8.8 K/uL (1.8-7.7); NEUTROPHILS % (AUTO) 72.5 % (42.2-75.2); PLATELET COUNT (AUTO) 452 K/uL (140-450); RED BLOOD CELL COUNT(AUTO) 3.87 MIL/uL (4.20-6.10); RED CELL DISTRIBUTION WIDTH 13.4 % (11.6-13.7); WHITE BLOOD COUNT (AUTO) 12.1 K/uL (4.8-10.8)
--- NOTE | 2022-02-21 06:20 | NUR ---
PT THRASHING AROUND. DRESSING TO L SMITH CAME OFF. PHOTO TAKEN FOR WOUND DOCUMENTATION. ENDORSE TO DAY SHIFT TO GET ORDER FOR WOUND CARE. PICTURE IN CHART. PT QUIETER NOW AT 0645. NEW IV IN R HAND 24G. ROCEPHIN INFUSED, D5 NS @ 50 CC/HR RUNNING.BILATERAL SOFT WRIST RESTRAINTS ON. O2 2L/NC ON. PT STILL SQUIRMING BUT NOT YELLING AT THIS TIME. I:I SITTER REMAINS AT BEDSIDE. CONTINUE FREQ ROUNDS.
--- NOTE | 2022-02-21 07:20 | NUR ---
ENDORSED REPORT TO DAY SHIFT NURSE FOR CONTINUITY OF CARE.
--- NOTE | 2022-02-21 07:25 | NUR ---
RECEIVED REPORT FROM [facility] NURSE FOR CONTINUITY OF CARE. PT AWAKE IN BED WITH CONFUSION. ON O2 2L NC, BREATHING SYMMETRICAL. NOTED RESTLESS, LIFTING/KICKING LEGS UP. SITTER PROVIDED. WITH LEFT SMITH SKIN TEAR WITH DRY DRESSING INTACT. NO C/O PAIN AT THIS TIME. WITH BILATERAL SOFT WRIST RESTRAINTS. ALL SAFETY MEASURES IN PLACE
[2022-02-21 08:00] VITALS: BP 151/100
[2022-02-21] MEDS: PANTOPRAZOLE 40 MG INJ VIAL IVP SCH (08:37)
[2022-02-21] MEDS: QUEtiapine FUMARATE 25 MG TAB NG SCH ×2 (08:38→20:48)
[2022-02-21] MEDS: chlordiazePOXIDE 25 MG CAP PO SCH ×2 (08:38→20:53)
[2022-02-21] MEDS: CLONIDINE HYDROCHLORIDE 0.1 MG TAB PO SCH ×2 (08:40→20:59)
[2022-02-21] MEDS: MENTHOL/ZINC OXIDE 113 GM TUBE TP SCH (09:21)
--- NOTE | 2022-02-21 09:22 | NUR ---
NOTED IV LINE ON R HAND PULLED OUT, RE INSRTED ANOTHER LINE ON LFA 22G, NO S/SX OF INFILTRATION NOTED. SITTER AT BEDSIDE
--- NOTE | 2022-02-21 11:00 | NUR ---
PT IN BED, NAPPING. BREATHING SYMMETRICAL, ON 2L NC. FLACC O. PT CALM AT THIS TIME. SITTER AT BEDSIDE
[2022-02-21 12:00] VITALS: BP 104/65
--- NOTE | 2022-02-21 13:26 | NUR ---
PT TRANSFERRED TO [facility]
--- NOTE | 2022-02-21 13:46 | NUR ---
02/21/22 RD FOLLOW UP COMPLETED PLEASE REFER TO NUTRITION ASSESSMENT UNDER CARE ACTIVITY FOR ESTIMATED NUTRITIONAL NEEDS. 1. CONTINUE PUREE DIET WITH HONEY-THICK LIQUIDS TOLERATED 2. CONTINUE NEPRO BID WITH THICKENER PER RD PROTOCOL 3. RD TO FOLLOW-UP 3-5 DAYS, MODERATE RISK MIGDALIA FINNEY RD
[2022-02-21] MEDS: LORazepam 2 MG/ML VIAL IM/IVP PRN (13:48)
[2022-02-21 16:00] VITALS: BP 121/66
[2022-02-21] MEDS: HALOPERIDOL IM 5 MG/ML VIAL IM PRN (16:13)
--- NOTE | 2022-02-21 17:26 | NUR ---
IVF EMPTY AND REPLACED. PT STILL NOTED RESTLESS AND AGITATED DESPITE NON PHARMACOLOGIC AND PHARMACOLOGIC INTERVENTIONS. SITTER REMAINS AT BEDSIDE.
--- NOTE | 2022-02-21 19:22 | NUR ---
DR TOLENTINO MADE AWARE THAT MORPHINE ORDER EXPIRES TODAY, PT HAS NO C/O PAIN AT THIS TIME AND LAST USED 3 DAYS AGO. PER TO
--- NOTE | 2022-02-21 19:23 | NUR ---
ENDORSED PT TO DATA CONVERSION ANALYST NURSE. NO CHANGE IN PT'S CONDITION
--- NOTE | 2022-02-21 19:24 | NUR ---
RECEIVED PT REPORT FROM AM NURSE FOR CONTINUITY OF CARE. PT IS STABLE.
[2022-02-21 20:00] VITALS: BP 127/69
[2022-02-21] MEDS: OLANZapine 5 MG TAB NG SCH (20:49)
--- NOTE | 2022-02-21 21:30 | NUR ---
HS MEDS GIVEN CRUSHED IN APPLESAUCE. LFA 22G IV PATENT ZOSYN IVPB INFUSED. D5NS INFUSNG AT 50CC/HR . PT REMAINS ACTIVE SQUIRMING IN BED. OCCASIONALLY FLINGS L LEG OVER BED RAILING. 1:1 SITTER IN ROOM. SOFT WRIST RESTRAINTS REMAIN IN PLACE. FREQ ROUNDS. CONTINUE TO MONITOR.
[2022-02-22] MEDS: DEXT 5% / NACL 0.45% 1,000 ML IV SCH ×2 (00:09→00:11)
[2022-02-22] MEDS: HYDRAGUARD CREAM TP SCH ×2 (01:24→13:40)
--- NOTE | 2022-02-22 07:15 | NUR ---
PT RESTLESS THROUGHOUT THE SHIFT OCCASIONALLY SWINGING HIS L LEG OVER THE SIDE RAILS. 1:1 SITTER IN ROOM. CHANGED BED LINEN, VSS. O2SAT 92% ON O2 2L/NC. BILATERAL SOFT WRIST RESTRAINTS IN PLACE TO PREVENT PT FROM PULLING AT TUBES. FREQ ROUNDS. WILL CONTINUE TO MONITOR.
--- NOTE | 2022-02-22 07:35 | NUR ---
ENDORSED REPORT TO NURSE TORRES FOR CONTINUITY OF CARE. PLEASE HAVE DR. PATTERSON CALL PT'S MOTHER SULTANA FORD AT SHE HAS QUESTIONS ABOUT HIS DIAGNOSIS/ FROM INFORMATION SHE LOOKED AT ON THE INTERNET.
[2022-02-22 08:00] VITALS: BP 153/85
--- NOTE | 2022-02-22 08:00 | NUR ---
RECIVED REPORT FROM PM SHIFT TINA SARAVIA FOR CONTINUITY OF CARE.PT. APPEARS RESTLESS. PT REMAINS ACTIVE SQUIRMING IN BED. OCCASIONALLY FLINGS LEG OVER SIDE RAILS. RESP. NORMAL. NO OBSERVED DISTRESS. ALL SAFETY MEASURES IN PLACE. 1:1 SITTER PRESENT IN THE ROOM. CONT. WITH BILATERAL SOFT RESTRAINT FOR SAFETY OF LINES AND TUBES. WILL CONTINUE TO MONITOR THE PT.
[2022-02-22] MEDS: PANTOPRAZOLE 40 MG INJ VIAL IVP SCH (09:09)
[2022-02-22] MEDS: QUEtiapine FUMARATE 25 MG TAB NG SCH (09:10)
[2022-02-22] MEDS: CLONIDINE HYDROCHLORIDE 0.1 MG TAB PO SCH ×2 (09:11→23:00)
[2022-02-22] MEDS: chlordiazePOXIDE 25 MG CAP PO SCH ×2 (09:28→20:41)
[2022-02-22] MEDS: LACTULOSE 20 GM/30 ML UDC NG SCH (09:28)
[2022-02-22] MEDS: MENTHOL/ZINC OXIDE 113 GM TUBE TP SCH (09:41)
--- NOTE | 2022-02-22 09:43 | NUR ---
ADMINISTERED MEDICATION DUE , PT. TOLERATED WELL.1:1 SITTER AT BEDSIDE. FEEDING BREAKFAST.CLOSELY MONITORING THE PT.
--- NOTE | 2022-02-22 09:55 | NUR ---
WOUND CARE RE-EVALUATION NOTE: SKIN CHANGE OF CONDITION. PT WITH RESTLESS BEHAVIOR, 1:1 SITTER AT BED SIDE. BILATERAL LOWER LEGS CONSTANTLY SWINGING AND LIFTING UP IN THE AIR. BOTH LEGS RUBBING TO EACH OTHER AND CAUSING LLE SKIN TEAR INCREASING SIZE. LEFT FOREARM AND LEFT ELBOW SKIN TEAR WITH THIN SCAB, RIGHT BUTTOCK SKIN THIN ABRASIONS 4X2CM SUPERFICIAL DEPTH,DRY. LLE SKIN TEAR 10X3X0.1CM WOUND BED PALE PINK,MOIST, NO ODOR, NELSON WOUND SKIN INTACT. PAIN 0/10 RECOMMENDATIONS: -APPLY FOAM DRESSING TO BUTTOCKS QD AND PRN IF SOILING -CLEANSE LLE WOUND WITH NS, PAT DRY, APPLY HYDROCOLLOID DRESSING CHANGE Q3 DAYS AND PRN IF SOILING.
[2022-02-22] MEDS: FOAM DRESSING TP SCH (13:34)
[2022-02-22] MEDS: HYDROCOLLOID DRESSING TP SCH (13:40)
--- NOTE | 2022-02-22 13:46 | NUR ---
PSYCH. CONSULT DONE VIA VIDEO CALL . RECEIVED NEW ORDERS FROM MD. WILL CARRYOUT ORDER AND CONTINUE TO MONITOR THE PT.
[2022-02-22 16:00] VITALS: BP 136/90
[2022-02-22] MEDS: HALOPERIDOL IM 5 MG/ML VIAL IM PRN (17:01)
--- NOTE | 2022-02-22 17:04 | NUR ---
PT. VERY AGITATED, KICKING. COMBATIVE. ADMINISTERED HOLDOL ORDERED. CLOSELY MONITORING THE PT. 1:1 SITTER AT BEDSIDE.
--- NOTE | 2022-02-22 18:46 | NUR ---
UNABLE TO DO EKG PATIENT COMBATIVE
[2022-02-22 19:55] LABS: CREATININE 1.5 mg/dL (0.6-1.3)
[2022-02-22 20:00] VITALS: BP 112/95
[2022-02-22] MEDS: BENZTROPINE 1 MG TAB PO SCH (20:40)
[2022-02-22] MEDS: OLANZapine 5 MG TAB PO SCH (20:41)
--- NOTE | 2022-02-22 20:55 | NUR ---
congetin 0.5mg (1/2 tab.) p.o given
[2022-02-23] VITALS: BP 90/60
--- NOTE | 2022-02-23 | NUR ---
ROUNDS , NID - O2 SAT WNL , PT KEEP PULLING O2 NC - O2 SAT 97 % . ON 1 : 1 SITTER .
[2022-02-23] MEDS: DEXT 5% / NACL 0.45% 1,000 ML IV SCH (00:12)
[2022-02-23] MEDS: HYDRAGUARD CREAM TP SCH ×2 (01:00→13:00)
--- NOTE | 2022-02-23 02:00 | NUR ---
ON 1: 1 SITTER - O2 SAT WNL . NID , WILL CONT. TO MONITOR .
[2022-02-23 04:00] VITALS: BP 122/65
--- NOTE | 2022-02-23 04:00 | NUR ---
ROUNDS , ON 1: 1 SITTER , NID =- O2 SAT WNL , WILL CONT. TO MONITOR .
--- NOTE | 2022-02-23 06:00 | NUR ---
FF UP EKG - EKG NOT DONE YESTERDAY BECAUSE PT IS SO MOVABLE - SO MANY ARTIFACTS - SO THE RT WILL DO NOW
--- NOTE | 2022-02-23 07:30 | NUR ---
Received report from pm nurse. Pt in bed, awake, bilateral soft wrist restraints in place. Pt restless in bed. Sitter at bedside for continuos monitoring for safety.
--- NOTE | 2022-02-23 07:30 | NUR ---
ENDORSED - AWAKE - ON 1: 1 SITTER . STABLE .
[2022-02-23 08:00] VITALS: BP 106/88
[2022-02-23] MEDS: CLONIDINE HYDROCHLORIDE 0.1 MG TAB PO SCH ×2 (09:00→21:01)
[2022-02-23] MEDS: MENTHOL/ZINC OXIDE 113 GM TUBE TP SCH (09:00)
[2022-02-23] MEDS: LACTULOSE 20 GM/30 ML UDC NG SCH (09:06)
[2022-02-23] MEDS: PANTOPRAZOLE 40 MG INJ VIAL IVP SCH (09:06)
[2022-02-23] MEDS: BENZTROPINE 1 MG TAB PO SCH ×2 (09:07→21:01)
[2022-02-23] MEDS: OLANZapine 5 MG TAB PO SCH ×2 (09:07→21:01)
[2022-02-23] MEDS: chlordiazePOXIDE 25 MG CAP PO SCH ×2 (09:07→21:01)
[2022-02-23] MEDS: LORazepam 2 MG/ML VIAL IM/IVP PRN (09:08)
[2022-02-23] MEDS: HALOPERIDOL IM 5 MG/ML VIAL IM PRN (11:29)
[2022-02-23 16:00] VITALS: BP 114/80
--- NOTE | 2022-02-23 19:05 | NUR ---
RECEIVED ENDORSEMENT FROM RUBY WILDER FOR CONTINUITY OF CARE. PT IS AWAKE AND STABLE IN BED. A&0X2 VERBALLY INCOHERENT BUT ABLE TO RESPOND TO COMMANDS AND QUESTIONS. DENIES PAIN. RESPIRATIONS EVEN AND UNLABORED WITH NO APPARENT S/SX OF ACUTE DISTRESS. PT IS ON BEDREST W BILAT SOFT WRIST RESTRAINTS W AN ACTIVE ORDER. PT IS INCONTINENT OF VOID AND BM. PT'S IV SITE TO THE LFA 22G IS PATENT/INTACT TKO. FAMILY MEMBER AT BEDSIDE. WHITE COMMUNICATION BOARD AND POC UPDATED. ALL SAFETY MEASURES IN PLACE. BED IN LOW/LOCKED POSITION. CALL LIGHT WITHIN REACH. WILL CONTINUE TO MONITOR.
--- NOTE | 2022-02-23 19:55 | NUR ---
SPOKE WITH KEN AT [employer] TO F/U NMS LAB ORDER. KEN STATED SHE WILL REACH OUT TO DR. MCLAUGHLIN AND WILL CALL BACK FOR UPDATES.
[2022-02-23 20:00] VITALS: BP 130/100
--- NOTE | 2022-02-23 20:20 | NUR ---
SPOKE W DR. ROJAS REGARDING LAB ORDER F/U. DR. ROJAS STATED THAT SHE WANTS CMP AND BMP REPEATED.
--- NOTE | 2022-02-23 21:00 | NUR ---
ADMINISTERED SCHEDULED PO MEDS PER MD ORDER. TOLERATED WELL. FLACC=0. RESPIRATIONS EVEN AND UNLABORED WITH NO APPARENT S/SX OF ACUTE DISTRESS. WHITE COMMUNICATION BOARD UPDATED. ALL SAFETY MEASURES IN PLACE. BED IN LOW/LOCKED POSITION. CALL LIGHT WITHIN REACH. WILL CONTINUE TO MONITOR.
--- NOTE | 2022-02-23 21:20 | NUR ---
REVIEWED PLAN OF CARE WITH BRADY SUÁREZ LVN FOR CONTINUITY OF CARE.
--- NOTE | 2022-02-23 21:22 | NUR ---
CONTACTED ON-CALL DR. RICKETTS REGARDING ORDERS FOR REPEAT CMP, BMP, AND SERUM CREATININE. WILL F/U.
--- NOTE | 2022-02-23 22:18 | NUR ---
CONTACTED CORRECT ON-CALL DR. ANSARI REGARDING LAB ORDERS. PER DR. ANSARI, AUTHORIZED LAB ORDERS FOR BMP, CMP, AND SERUM CREATININE. Addendum: 02/23/22 at 2223 by Chace Lynch LVN CORRECT LAB ORDERS: CMP, CBC, AND SERUM CREATININE
--- NOTE | 2022-02-23 23:13 | NUR ---
PT IS STABLE AND AWAKE AND APPEARS TO BE CALM BUT CONTINUES TO MOVE BILAT LEGS IN MULTIPLE DIRECTION. FLACC=0. RESPIRATIONS EVEN AND UNLABORED WITH NO APPARENT S/SX OF ACUTE DISTRESS. WHITE COMMUNICATION BOARD UPDATED. ALL SAFETY MEASURES IN PLACE. BED IN LOW/LOCKED POSITION. CALL LIGHT WITHIN REACH. SITTER PRESENT. WILL CONTINUE TO MONITOR.
[2022-02-24] MEDS: LORazepam 2 MG/ML VIAL IM/IVP PRN ×3 (00:56→21:36)
[2022-02-24] MEDS: HYDRAGUARD CREAM TP SCH ×2 (01:01→13:04)
--- NOTE | 2022-02-24 01:14 | NUR ---
CHANGED PT'S DRESSING ON LLE. TOLERATED WELL. FLACC=0. RESPIRATIONS EVEN AND UNLABORED WITH NO APPARENT S/SX OF ACUTE DISTRESS. WHITE COMMUNICATION BOARD UPDATED. ALL SAFETY MEASURES IN PLACE. BED IN LOW/LOCKED POSITION. SITTER PRESENT. WILL CONTINUE TO MONITOR.
[2022-02-24] MEDS: HALOPERIDOL IM 5 MG/ML VIAL IM PRN ×2 (02:57→21:02)
--- NOTE | 2022-02-24 03:07 | NUR ---
PT IS STABLE AND RESTING. MINIMAL LEG MOVEMENTS OBSERVED AT THIS TIME. FLACC=0. RESPIRATIONS EVEN AND UNLABORED WITH NO APPARENT S/SX OF ACUTE DISTRESS. WHITE COMMUNICATION BOARD UPDATED. ALL SAFETY MEASURES IN PLACE. BED IN LOW/LOCKED POSITION. SITTER PRESENT. WILL CONTINUE TO MONITOR.
[2022-02-24 04:00] VITALS: BP 133/91
--- NOTE | 2022-02-24 05:30 | NUR ---
PT'S IV LINE OBSTRUCTED. NEW LINE ESTABLISHED ON LEFT WRIST 22G BY CHARGE NURSE FARIDA. TOLERATED WELL. PT'S BED SHEET CHANGED AND REPOSITIONED FOR COMFORT. FLACC 0. RESPIRATIONS EVEN AND UNLABORED WITH NO APPARENT S/SX OF ACUTE DISTRESS. ALL NEEDS MET. WHITE COMMUNICATION BOARD UPDATED. ALL SAFETY MEASURES IN PLACE. BED IN LOW/LOCKED POSITION. SITTER PRESENT. WILL CONTINUE TO MONITOR.
[2022-02-24 06:26] LABS: BASOPHILS # (AUTO) 0.1 K/uL (0.00-0.22); BASOPHILS % (AUTO) 1.1 % (0.0-2.0); EOSINOPHILS # (AUTO) 0.4 K/uL (0-0.4); EOSINOPHILS % (AUTO) 3.8 % (0.0-4.0); HEMATOCRIT 38.7 % (36-52); HEMOGLOBIN 13.2 g/dL (12.0-18.0); LYMPHOCYTES % (AUTO) 19.1 % (20.5-51.1); MEAN CORPUSCULAR HEMOGLOBIN 32 pg (27-31); MEAN CORPUSCULAR HGB CONC 34 g/dL (33-37); MEAN CORPUSCULAR VOLUME 93.7 fL (80-94); MONOCYTES # (AUTO) 1.1 K/uL (0.8-1.0); MONOCYTES % (AUTO) 10.8 % (1.7-9.3); NEUTROPHILS # (AUTO) 6.8 K/uL (1.8-7.7); NEUTROPHILS % (AUTO) 65.2 % (42.2-75.2); PLATELET COUNT (AUTO) 503 K/uL (140-450); RED BLOOD CELL COUNT(AUTO) 4.13 MIL/uL (4.20-6.10); RED CELL DISTRIBUTION WIDTH 13.6 % (11.6-13.7); WHITE BLOOD COUNT (AUTO) 10.4 K/uL (4.8-10.8)
[2022-02-24 07:14] LABS: ALBUMIN 2.7 g/dL (3.4-5.0); ANION GAP 11.2 (8-16); CARBON DIOXIDE 29.3 mmol/L (21-32); CREATININE 1.4 mg/dL (0.6-1.3); POTASSIUM 3.5 mmol/L (3.5-5.1); TOTAL BILIRUBIN 0.4 mg/dL (0.0-1.0)
--- NOTE | 2022-02-24 07:20 | NUR ---
ENDORSED PT TO LOU WILDER FOR CONTINUITY OF CARE. PT IS STABLE.
--- NOTE | 2022-02-24 07:24 | NUR ---
RECEIVED REPORT FROM SPONGE PACKER RN FOR CONTINUITY OF CARE. PT IS AWAKE AND STABLE IN BED. A&0X2 VERBALLY INCOHERENT BUT ABLE TO RESPOND TO COMMANDS AND QUESTIONS. DENIES PAIN. RESPIRATIONS EVEN AND UNLABORED WITH NO APPARENT S/SX OF ACUTE DISTRESS. W BILAT SOFT WRIST RESTRAINTS W AN ACTIVE ORDER. PT IS INCONTINENT OF VOID AND BM. IV SITE TO THE LFA 22G. PATENT/INTACT TKO. PLAN OF CARE DISCUSSED. ALL SAFETY MEASURES IN PLACE. BED IN LOW/LOCKED POSITION. CALL LIGHT WITHIN REACH. WILL CONTINUE TO MONITOR.
[2022-02-24 08:00] VITALS: BP 131/83
[2022-02-24] MEDS: BENZTROPINE 1 MG TAB PO SCH ×2 (08:48→21:01)
[2022-02-24] MEDS: OLANZapine 5 MG TAB PO SCH ×2 (08:48→21:02)
[2022-02-24] MEDS: CLONIDINE HYDROCHLORIDE 0.1 MG TAB PO SCH ×2 (08:49→21:01)
[2022-02-24] MEDS: chlordiazePOXIDE 25 MG CAP PO SCH ×2 (08:49→21:02)
[2022-02-24] MEDS: LACTULOSE 20 GM/30 ML UDC NG SCH (08:50)
[2022-02-24] MEDS: PANTOPRAZOLE 40 MG INJ VIAL IVP SCH (08:50)
[2022-02-24] MEDS: MENTHOL/ZINC OXIDE 113 GM TUBE TP SCH (08:52)
--- NOTE | 2022-02-24 09:05 | NUR ---
ALL SCHEDULED MEDS GIVEN. PT IS STABLE. NO DISTRESS NOTED. WILL CONTINUE TO MONITOR.
--- NOTE | 2022-02-24 09:45 | NUR ---
CONTACTED TELEPSYCH SERVICE AND INFORMED KEN REGARDING FOLLOW UP EVAL FOR PATIENT. WILL CALL BACK TO INFORM US TIME OF CALL.
--- NOTE | 2022-02-24 12:05 | NUR ---
KEN, TELEPSYCH CALL BACK AND INFORMED THAT DR. YAN WILL BE SEEING PATIENT AT AROUND 1400.
[2022-02-24] MEDS: DEXT 5% / NACL 0.45% 1,000 ML IV SCH (13:03)
--- NOTE | 2022-02-24 13:58 | NUR ---
PATIENT WAS SEEN BY DR. YAN, PSYCH . USED TELEPSYCH SERVICE TO COMMUNICATE WITH PATIENT.
[2022-02-24 16:00] VITALS: BP 129/84
--- NOTE | 2022-02-24 17:15 | NUR ---
CHECKED ON PATIENT. PT IS STABLE. NO DISTRESS NOTED. WILL CONTINUE TO MONITOR.
--- NOTE | 2022-02-24 19:00 | NUR ---
ENDORSED TO WELL LOGGER NURSE FOR CONTINUITY OF CARE. PT IS STABLE.
--- NOTE | 2022-02-24 19:05 | NUR ---
RECEIVED ENDORSEMENT FROM LOU WILDER FOR CONTINUITY OF CARE. PT IS AWAKE AND STABLE IN BED. A&0X1 VERBALLY INCOHERENT BUT ABLE TO RESPOND TO COMMANDS AND QUESTIONS. FLACC 0. RESPIRATIONS EVEN AND UNLABORED WITH NO APPARENT S/SX OF ACUTE DISTRESS. PT IS ON BEDREST WITH BILAT SOFT WRIST RESTRAINTS W AN ACTIVE ORDER. PT IS INCONTINENT OF VOID AND BM. PT'S IV SITE TO THE L WRIST 22G IS PATENT/INTACT D5NS1/2 @ 50 ML/HR. FAMILY MEMBER AT BEDSIDE. SITTER PRESENT. WHITE COMMUNICATION BOARD AND POC UPDATED. ALL SAFETY MEASURES IN PLACE. BED IN LOW/LOCKED POSITION. CALL LIGHT WITHIN REACH. WILL CONTINUE TO MONITOR.
[2022-02-24] MEDS: HYDROcodone/APAP 5/325 MG 1 TAB TAB PO PRN (19:25)
[2022-02-24 20:00] VITALS: BP 126/87
--- NOTE | 2022-02-24 20:00 | NUR ---
Patient's Plan of Care was discussed and reviewed with ANTONELLA SUÁREZ
--- NOTE | 2022-02-24 21:00 | NUR ---
ADMINISTERED ROCEPHIN IVPB, NO ADVERSE REACTIONS NOTED. PATIENT SLEEPING AT THIS TIME.RESPIRATION EVEN AND UNLABORED,NO DISTRESS NOTED. Addendum: 02/24/22 at 2316 by Dylon Goldstein RN CHARTED ON WRONG PATIENT.
--- NOTE | 2022-02-24 21:05 | NUR ---
ADMINISTERED SCHEDULED PO MEDS PER MD ORDER. TOLERATED WELL. FLACC 0. RESPIRATIONS EVEN AND UNLABORED WITH NO APPARENT S/SX OF ACUTE DISTRESS. WHITE COMMUNICATION BOARD UPDATED. ALL SAFETY MEASURES IN PLACE. BED IN LOW/LOCKED POSITION. SITTER PRESENT. WILL CONTINUE TO MONITOR.
--- NOTE | 2022-02-24 23:04 | NUR ---
PT IS STABLE AND AWAKE IN BED. PT IS QUIET IN BED WHILE MOVING BILAT LEGS IN DIFFERENT DIRECTIONS. FLACC 0. RESPIRATIONS EVEN AND UNLABORED WITH NO APPARENT S/SX OF ACUTE DISTRESS. WHITE COMMUNICATION BOARD UPDATED. ALL SAFETY MEASURES IN PLACE. BED IN LOW/LOCKED POSITION. SITTER PRESENT. WILL CONTINUE TO MONITOR.
--- NOTE | 2022-02-25 01:06 | NUR ---
COMPLETED ROUTINE SKIN CARE. APPLIED HYDRAGUARD AND CHANGED LLE DRESSING. TOLERATED WELL. FLACC 0. RESPIRATIONS EVEN AND UNLABORED WITH NO APPARENT S/SX OF ACUTE DISTRESS. WHITE COMMUNICATION BOARD UPDATED. ALL SAFETY MEASURES IN PLACE. BED IN LOW/LOCKED POSITION. CALL LIGHT WITHIN REACH. SITTER PRESENT. WILL CONTINUE TO MONITOR.
[2022-02-25] MEDS: HYDRAGUARD CREAM TP SCH ×2 (01:22→12:19)
--- NOTE | 2022-02-25 01:23 | NUR ---
ADMINISTERED ATIVAN 1 MG IVP FOR AGITATION,RESTLESSNESS AND ATTEMPTING TO CLIMB OUT OF BED
[2022-02-25] MEDS: LORazepam 2 MG/ML VIAL IM/IVP PRN (02:07)
--- NOTE | 2022-02-25 03:06 | NUR ---
PT IS AWAKE AND QUIET IN BED. PT CONTINUES TO MOVE BILAT LEGS IN DIFFERENT DIRECTIONS. FLACC 0. RESPIRATIONS EVEN AND UNLABORED WITH NO APPARENT S/SX OF ACUTE DISTRESS. WHITE COMMUNICATION BOARD UPDATED. ALL SAFETY MEASURES IN PLACE. BED IN LOW/LOCKED POSITION. SITTER PRESENT. WILL CONTINUE TO MONITOR.
[2022-02-25 04:00] VITALS: BP 129/81
--- NOTE | 2022-02-25 05:13 | NUR ---
CLEANED AND CHANGED PT'S PULL UP, FITTED SHEET, DRAW SHEET AND PILLOW CASE. TOLERATED WELL. FLACC 0. RESPIRATIONS EVEN AND UNLABORED WITH NO APPARENT S/SX OF ACUTE DISTRESS. ALL NEEDS MET. WHITE COMMUNICATION BOARD UPDATED. ALL SAFETY MEASURES IN PLACE. BED IN LOW/LOCKED POSITION. SITTER PRESENT. WILL CONTINUE TO MONITOR.
--- NOTE | 2022-02-25 07:05 | NUR ---
ENDORSED PT TO ANTONELLA FRANCIS FOR CONTINUITY OF CARE. PT IS STABLE.
--- NOTE | 2022-02-25 07:06 | NUR ---
RECEIVED REPORT FROM HELMET HAT BRIM CUTTER NURSE FOR CONTINUITY OF CARE. PT IS AWAKE AND STABLE IN BED. PT IS ALERT AND ORIENTED X1, NOT ABLE TO VERBALIZE, HOWEVER, ABLE TO RESPOND TO COMMANDS AND QUESTIONS. RESPIRATIONS EVEN AND UNLABORED ON ROOM AIR, NO SIGNS OF DISTRESS NOTED. PT IS ON BEDREST WITH BILAT SOFT WRIST RESTRAINTS W AN ACTIVE ORDER. PT IS INCONTINENT OF BOWEL AND BLADDER. PT'S IV SITE TO THE L WRIST 22G IS PATENT/INTACT. SITTER PRESENT. WHITE COMMUNICATION BOARD AND POC UPDATED. ALL SAFETY MEASURES IN PLACE. BED IN LOW/LOCKED POSITION. CALL LIGHT WITHIN REACH. WILL CONTINUE TO MONITOR.
[2022-02-25 08:00] VITALS: BP 146/89
[2022-02-25] MEDS: DEXT 5% / NACL 0.45% 1,000 ML IV SCH (08:50)
[2022-02-25] MEDS: PANTOPRAZOLE 40 MG INJ VIAL IVP SCH (09:00)
[2022-02-25] MEDS: FOAM DRESSING TP SCH (09:53)
[2022-02-25] MEDS: HYDROCOLLOID DRESSING TP SCH (09:53)
[2022-02-25] MEDS: LACTULOSE 20 GM/30 ML UDC NG SCH (09:54)
[2022-02-25] MEDS: chlordiazePOXIDE 25 MG CAP PO SCH ×2 (09:55→20:48)
[2022-02-25] MEDS: OLANZapine 5 MG TAB PO SCH ×2 (09:55→20:49)
[2022-02-25] MEDS: CLONIDINE HYDROCHLORIDE 0.1 MG TAB PO SCH ×2 (09:55→20:45)
[2022-02-25] MEDS: BENZTROPINE 1 MG TAB PO SCH ×2 (09:55→20:46)
[2022-02-25] MEDS: MENTHOL/ZINC OXIDE 113 GM TUBE TP SCH (09:55)
--- NOTE | 2022-02-25 10:12 | NUR ---
IV PROTONIX GIVEN BY RN. WILL CONTINUE TO MONITOR.
[2022-02-25] MEDS: HALOPERIDOL IM 5 MG/ML VIAL IM PRN (12:13)
--- NOTE | 2022-02-25 13:53 | NUR ---
ASSISTED PT WITH CHANGING AND REPOSITIONING PT. PT YELLING AND KICKING AT THIS TIME. REQUIRED 4 PERSON ASSIST. WILL CONTINUE TO MONITOR.
[2022-02-25 16:00] VITALS: BP 138/78
--- NOTE | 2022-02-25 16:17 | NUR ---
PT KICKING AND FLAILING ABOUT IN BED. CHANGED AND REPOSITIONED PT. PT CONTINUES TO HAVE SITTER AT BEDSIDE. WILL CONTINUE TO MONITOR.
--- NOTE | 2022-02-25 19:15 | NUR ---
ENDORSED PT TO CARPET LOOM FIXER NURSE FOR CONTINUITY OF CARE. ALL NEEDS MET THROUGHOUT SHIFT. PT IS STABLE.
--- NOTE | 2022-02-25 19:16 | NUR ---
RECEIVED REPORT FROM AM NURSE. REVIEWED DAYS EVENTS AND POC FOR CONTINUITY OF CARE. AT BEDSIDE. PT QUIET AT THIS TIME. WILL CONTINUE TO MONITOR.
[2022-02-25 20:00] VITALS: BP 146/89
--- NOTE | 2022-02-25 20:45 | NUR ---
PT INCONTINENT OF URINE. CHANGED PT AND BED LINEN WITH HELP OF . REPOSITIONED PT FOR COMFORT. HS MEDS GIVEN CRUSHED IN PUDDING. PT TOLERATED IT WELL AFTER FREQ REMINDERS. 2100 PT CALLING OUT. MEDICATED WITH TYLENOL 650 MGS. GIVEN CRUSHED IN PUDDING WITH THICKENED APPLE JUICE TO DRINK. EFFECTIVE SLEEPING AFTER 20 MINUTES WITH ONLY OCCASIONAL CRYING OUT. SOFT WRIST RESTRAINTS REMAIN IN PLACE FOR SAFETY. WILL CONTINUE TO MONITOR. 1:1 SITTER OUTSIDE ROOM.
--- NOTE | 2022-02-25 22:14 | NUR ---
REASSESSMENT FOR CATAPRES. PT HAS BEEN RESTLESS, CRYING OUT, THROWING HIS LEG AROUND. BP-141/102, P-91, RR-20, T-97.3, O2 SAT= 92%. 22:20 PT IS SLEEPING. RR EVEN AND UNLABORED WITH EQUAL CHEST RISE. ALL SAFETY MEASURES IN PLACE. 1:1 SITTER REMAINS OUTSIDE ROOM. WILL CONTINUE TO MONITOR.
--- NOTE | 2022-02-26 00:05 | NUR ---
PT RESTING RR EVEN AND UNLABORED. OCCASIONAL SNORING AND LEG KICKING. SOFT WRIST RESTRAINTS REMAIN ON FOR SAFETY. PT STILL TRYING TO PULL OUT LINES. 1;1 SITTER REMAINS OUTSIDE ROOM. ALL SAFETY MEASURES IN PLACE.. CONTINUE TO MONITOR.
[2022-02-26] MEDS: HYDRAGUARD CREAM TP SCH ×2 (00:52→13:00)
[2022-02-26] MEDS: HALOPERIDOL IM 5 MG/ML VIAL IM PRN ×2 (01:28→15:04)
--- NOTE | 2022-02-26 01:28 | NUR ---
PT COMBATIVE, SWINGING LEGS OVER SIDE RAILS KICKING, YELLING. MEDICATED WITH HALDOL 3MG IM IN L DELTOID.. TOOK HALDOL VIAL OUT OF 3FLOZICELL, DOSE 5MG/1ML NO PROMPT IN PYXIS FOR WASTE. WILMAN WOODS RN WITNESS FOR THE WASTE. 0045 NO EFFECT FROM HALDOL. STILL KICKING COVERS, LEGS ,SQUIRMING WHOLE BODY. 1:1 SITTER OUTSIDE ROOM. CONTINUE TO OBSERVE.ALL SAFETY MEASURES IN PLACE,
--- NOTE | 2022-02-26 02:31 | NUR ---
PT'S IV LEAKING. DISCONNECTED FLUIDS. UNABLE TO INSERT NEW IV AT THIS TIME. PT COMBATIVE, FLAILING LEGS .KICKING . PT REMOVED HEEL PROTECTORS, WEDGE BARRIERS AND PILLOWS. FREQ ROUNDS. 1:1 SITTER OUTSIDE ROOM. EYES ON PT AT ALL TIMES.
[2022-02-26] MEDS: DEXT 5% / NACL 0.45% 1,000 ML IV SCH (05:37)
--- NOTE | 2022-02-26 05:50 | NUR ---
PT RESTLESS, COMBATIVE. NEW IV 22G INSERTED INTO R ANTECUBITAL BY ANTONELLA KNAPP WITH 3 ASSIST TO HOLD LEGS AND ARMS. KEEPS TRYING TO SWING LEGS OVER SIDE RAILS. IVF D50.45 @50CC/HR RESUMED. COMPLETE BED LINEN CHANGE. ALL SAFETY MEASURES IN PLACE. PT KEEPS TRYING TO SQUIRM BODY AND MANIPULATE LEGS IN THE AIR. 1:1 SITTER REMAINS OUTSIDE ROOM. WILL CONTONUE TO OBSERVE.
--- NOTE | 2022-02-26 07:20 | NUR ---
Received report from night shift supervisor nurse for continuity of care. Patient restless on wrist restraint. iv on right AC running at 50 cc/hour.
[2022-02-26 08:00] VITALS: BP 144/91
--- NOTE | 2022-02-26 08:25 | NUR ---
PHYSICAL THERAPY JUST FINISH THERAPY. PATIENT TOLERATED SITTING AT EDGE OF BED WITH ASSIST.
[2022-02-26] MEDS: PANTOPRAZOLE 40 MG INJ VIAL IVP SCH (09:00)
--- NOTE | 2022-02-26 10:09 | NUR ---
GIVEN ALL ORAL MEDICATION TOLERATED WELL. ASSISTED PATIENT WITH BREAKFAST TOLERATED ONLY 30% OF HIS MEAL. WRIST RESTRAIN ON AND SKIN INTEGRITY CHECKED. MONITOR FREQUENTLY.
[2022-02-26] MEDS: LACTULOSE 20 GM/30 ML UDC NG SCH (10:18)
[2022-02-26] MEDS: CLONIDINE HYDROCHLORIDE 0.1 MG TAB PO SCH ×2 (10:19→20:40)
[2022-02-26] MEDS: OLANZapine 5 MG TAB PO SCH (10:20)
[2022-02-26] MEDS: chlordiazePOXIDE 25 MG CAP PO SCH ×2 (10:20→21:37)
[2022-02-26] MEDS: MENTHOL/ZINC OXIDE 113 GM TUBE TP SCH (10:23)
[2022-02-26] MEDS: BENZTROPINE 1 MG TAB PO SCH (10:23)
--- NOTE | 2022-02-26 12:30 | NUR ---
PATIENT AWAKE RN CARE TRANSITION TRIED TO FEED HIM ONLY DRINK NEPRO AND REFUSED TO EAT THE FOOD.
--- NOTE | 2022-02-26 13:30 | NUR ---
DR. DELAROSA AT BED SIDE NO NEW ORDER.
--- NOTE | 2022-02-26 15:04 | NUR ---
PATIENT VERY RESTLESS NOTED WITH KICKING TRYING TO GET OUT OF BED . CHANGE AND OFFERED FLUID STILL RESTLESS. GIVEN IM HALDOL. LEFT MESSAGE TO PSYCH OFFICE FOR PATIENT RE EVALUATION WAITING FOR RESPONSE.
[2022-02-26 16:58] VITALS: BP 151/91
--- NOTE | 2022-02-26 17:50 | NUR ---
DR. LOCK HAD VIDEO CONSULT WITH PATIENT AND SHE ORDER TO REPEAT CREATININE LEVEL AND SHE SAID WILL INCREASE ZYPREXA TO 5 MG .
--- NOTE | 2022-02-26 18:31 | NUR ---
DR. LOCK PSYCHIATRIST CHANGE HER ORDER TO DISCONTINUE ZYPREXA AND GIVE HALDOL 5 MG BID ROUTINELY. PATIENT ASLEEP AT THIS TIME.
--- NOTE | 2022-02-26 19:19 | NUR ---
GAVE REPORT TO TECHNOLOGIES DIVISION CHAIR NURSE FOR CONTINUITY OF CARE.
--- NOTE | 2022-02-26 20:00 | NUR ---
REPORT RECEIVED. CARE OF PATIENT ASSUMED. PT IS RESPONSIVE TO NAME. VERY CONFUSED. RESTLESS AND KICKING HIS LEGS. VITALS ARE STABLE. WITH BILAT SOFT WRIST RESTRAINTS ON. NO SIGNS OF INJURY. SITTER AT THE BEDSIDE. ABLE TO TAKE PO PILLS CRUSHED WITH PUDDING WITH FULL ASSISTANCE. ENCOURAGE PO INTAKE. ASPIRATION PRECAUTIONS. WILL CONTINUE TO MONITOR.
[2022-02-26] MEDS: HALOPERIDOL 5 MG TAB PO SCH (20:39)
--- NOTE | 2022-02-27 | NUR ---
PT CONTINUES TO BE RESTLESS. CONTINUE TO PROVIDE REASSURANCE AND REORIENTATION NEEDED. PT CONFUSED. WITH BILAT SOFT WRIST RESTRAINTS. NO S/S OF INJURY. SITTER AT BEDSIDE. CONTINUE TO MONITOR.
[2022-02-27] MEDS: DEXT 5% / NACL 0.45% 1,000 ML IV SCH ×3 (00:40→23:54)
[2022-02-27] MEDS: HYDRAGUARD CREAM TP SCH ×2 (01:00→12:44)
--- NOTE | 2022-02-27 02:47 | NUR ---
PT ASLEEP. VISIBLE CHEST RISE AND FALL NOTED. NO S/SX OF DISTRESS NOTED. ALL PRECAUTIONS IN PLACE.CALL LIGHT WITHIN REACH. WILL CONTINUE TO MONITOR.
[2022-02-27 04:24] VITALS: BP 147/93
--- NOTE | 2022-02-27 07:07 | NUR ---
PT IS STABLE. NO ACUTE THROUGHOUT THE NIGHT. NO S/SX OF DISTRESS AT THIS MOMENT. NO COMPLAINS OF PAIN. ALL PRECAUTIONS IN PLACE. CALL LIGHT WITHIN REACH.WILL ENDORSE TO AM SHIFT NURSE.
--- NOTE | 2022-02-27 07:25 | NUR ---
RECEIVED BEDSIDE REPORT FROM FENDER FINISHER NURSE FOR CONTINUITY OF CARE. PT IS A&OX0. OPENS EYES WITH SHAKING. ON RA WITH BREATHING UNLABORED. BEDBOUND. INCONTINENT OF BOWEL AND BLADDER. SKIN IS WARM AND DRY. LE SKIN TEAR NURSE INFORMATICS EDUCATOR. IV IS IN THE RIGHT AC 22 GAUGE INFUSING FLUIDS ORDERED. PT IS STABLE. PLAN OF CARE DISCUSSED.
[2022-02-27 07:36] LABS: BASOPHILS # (AUTO) 0.1 K/uL (0.00-0.22); BASOPHILS % (AUTO) 0.5 % (0.0-2.0); EOSINOPHILS # (AUTO) 0.4 K/uL (0-0.4); EOSINOPHILS % (AUTO) 3.8 % (0.0-4.0); HEMATOCRIT 39.2 % (36-52); HEMOGLOBIN 13.2 g/dL (12.0-18.0); LYMPHOCYTES # (AUTO) 1.5 K/uL (2.0-11.5); LYMPHOCYTES % (AUTO) 13.3 % (20.5-51.1); MEAN CORPUSCULAR HEMOGLOBIN 32 pg (27-31); MEAN CORPUSCULAR HGB CONC 34 g/dL (33-37); MEAN CORPUSCULAR VOLUME 94.2 fL (80-94); MONOCYTES # (AUTO) 1.3 K/uL (0.8-1.0); MONOCYTES % (AUTO) 11.2 % (1.7-9.3); NEUTROPHILS # (AUTO) 8.2 K/uL (1.8-7.7); NEUTROPHILS % (AUTO) 71.2 % (42.2-75.2); PLATELET COUNT (AUTO) 405 K/uL (140-450); RED BLOOD CELL COUNT(AUTO) 4.16 MIL/uL (4.20-6.10); RED CELL DISTRIBUTION WIDTH 13.7 % (11.6-13.7); WHITE BLOOD COUNT (AUTO) 11.5 K/uL (4.8-10.8)
[2022-02-27 07:53] LABS: ALBUMIN 2.6 g/dL (3.4-5.0); ANION GAP 14.1 (8-16); CARBON DIOXIDE 25.4 mmol/L (21-32); CREATININE 1.4 mg/dL (0.6-1.3); MAGNESIUM 2.1 mg/dL (1.8-2.4); POTASSIUM 3.5 mmol/L (3.5-5.1); TOTAL BILIRUBIN 0.4 mg/dL (0.0-1.0)
[2022-02-27 08:00] VITALS: BP 138/80
[2022-02-27] MEDS: LACTULOSE 20 GM/30 ML UDC NG SCH (09:00)
[2022-02-27] MEDS: HALOPERIDOL 5 MG TAB PO SCH ×2 (09:00→21:17)
[2022-02-27] MEDS: CLONIDINE HYDROCHLORIDE 0.1 MG TAB PO SCH ×2 (09:00→21:16)
[2022-02-27] MEDS: MENTHOL/ZINC OXIDE 113 GM TUBE TP SCH (09:00)
[2022-02-27] MEDS: PANTOPRAZOLE 40 MG INJ VIAL IVP SCH (09:00)
--- NOTE | 2022-02-27 09:00 | NUR ---
PT IS SLEEPING AND CALM. RESTRAINTS REMOVED TEMPORARILY FOR 15 MINUTE BREAK. PT DOES NOT APPEAR TO BE IN ANY DISTRESS OF PAIN. BREATHING IS UNLABORED ON RA. RESTRAINTS PLACED BACK ON PT AFTER 15 MINUTES. SITTER AT BEDSIDE. WILL MONITOR.
--- NOTE | 2022-02-27 11:00 | NUR ---
PT IS COMBATIVE. ATTEMPTED TO KICK STAFF. WAS GIVEN WATER AND SHAKE, SWALLOWING INTACT. PT DOES NOT WANT TO BE BOTHERED. PLACED BACK IN SEMI FOWLERS POSITION ON RESTRAINTS. SITTER AT BEDSIDE. WILL CONTINUE TO MONITOR.
--- NOTE | 2022-02-27 13:30 | NUR ---
PT IS RESTING COMFORTABLY. NO DISTRESS NOTED. LAYING IN SEMI FOWLERS POSITION WITH RESTRAINTS IN PLACE. SITTER AT BEDSIDE. PT STABLE. WILL MONITOR.
[2022-02-27 16:00] VITALS: BP 135/87
--- NOTE | 2022-02-27 16:00 | NUR ---
PT IS AWAKE WITH EYES OPEN. TRACKS WITH EYES. INCOMPREHENSIBLE SPEECH. PT KICKING LEGS A LOT AT BED. PT IS COMBATIVE WITH STOCK RECEIVER. PT IS STABLE. SITTER AT BEDSIDE.
--- NOTE | 2022-02-27 19:10 | NUR ---
ENDORSED PT TO YACHT CAPTAIN NURSE FOR CONTINUITY OF CARE. PT IS STABLE. PLAN OF CARE DISCUSSED.
--- NOTE | 2022-02-27 19:11 | NUR ---
RECD. RESTING IN BED, SLEEPING, A/OX1. RESPIRATION EVEN AND UNLABORED. IV OF D5 0.45% NS INFUSING AT 50 ML/HR, RIGHT AC G22. OCCASIONALLY KICKS AND RESTLESS BUT NONE NOTED AT THIS TIME. ON BILATERAL SOFT WRIST RESTRAINTS. INCONTINENT. LEFT SMITH WOUND COVERED WITH DRESSING DRY AND INTACT. NO APPEARANCE OF PAIN NOTED, FLACC - 0.
--- NOTE | 2022-02-27 19:12 | NUR ---
Patient's Plan of Care was discussed and reviewed with GARMENT SEWER HAND: DEE. PT APPEARS TO BE RESTING W/ EYES CLOSE AT THIS TIME. GERTRUDIS SOFT WRIST RESTRAINTS IN PLACE. WILL CONTINUE TO MONITOR.
[2022-02-27 20:00] VITALS: BP 130/89
--- NOTE | 2022-02-27 20:00 | NUR ---
AWAKE, WITH RESTLESSNESS, PUTS OUT BLE OUT OF BED, OCCASIONALLY USES LEFT LEG TO KICK. REORIENTED TO HOSPITAL SETTING. NEEDS FREQUENT REINFORCEMENT.
--- NOTE | 2022-02-27 21:16 | NUR ---
SCHEDULED MEDICATIONS ADMINISTERED WITH PUDDING. TOLERATED WELL.
--- NOTE | 2022-02-27 22:00 | NUR ---
AGITATED, SHOUTING. REORIENTED TO HOSPITAL SETTING. REPOSITIONED IN BED FOR COMFORT.
[2022-02-27] MEDS: HYDROcodone/APAP 5/325 MG 1 TAB TAB PO PRN (22:10)
--- NOTE | 2022-02-27 23:00 | NUR ---
VERY AGITATED, MEDICATED WITH HALDOL IM PER MD ORDER. Addendum: 02/28/22 at 0054 by Renetta Bonilla LVN CORRECTION: HALDOL IM ADMINISTERED AT 0039 NOT 2300.
[2022-02-28] VITALS: BP 145/95
[2022-02-28] MEDS: HALOPERIDOL IM 5 MG/ML VIAL IM PRN (00:39)
[2022-02-28] MEDS: HYDRAGUARD CREAM TP SCH ×2 (01:02→12:33)
--- NOTE | 2022-02-28 01:35 | NUR ---
NO AGITATION NOTED BUT STILL OCCASIONALLY PUTTING OUT BLE OUT OF BED.
--- NOTE | 2022-02-28 02:30 | NUR ---
WITH RESTLESSNESS, STILL KICKING OCCASIONALLY AND PUTTING OUT OF BED BILATERAL LOWER EXTREMITIES. REORIENTED ON HOSPITAL SETTING. SAFETY MAINTAINED.
--- NOTE | 2022-02-28 02:50 | NUR ---
SLEEPING COMFORTABLY IN BED. RESPIRATION EVEN AND UNLABORED.
--- NOTE | 2022-02-28 03:00 | NUR ---
AWAKE. WITH RESTLESSNESS. OCCASIONALLY KICKING AND PUTTING BLE OUT OF BED.
--- NOTE | 2022-02-28 05:00 | NUR ---
ORAL CARE DONE. DIAPER AND BEDDINGS CHANGED WITH HELP OF [employer] ENGINEER. PATIENT IS UNCOOPERATIVE. KICKING IN BED AND CURSING NURSES.
--- NOTE | 2022-02-28 06:20 | NUR ---
KICKING AND MUMBLING WORDS. RAISE HEAD OF BED AT 35 DEGREES. ABLE TO FALL ASLEEP. RESPIRATION EVEN AND UNLABORED.
--- NOTE | 2022-02-28 06:59 | NUR ---
STILL SLEEPING COMFORTABLY IN BED. RESPIRATION EVEN AND UNLABORED. SAFETY DURING THE SHIFT. WILL ENDORSE TO AM SHIFT NURSE FOR CONTINUITY OF CARE.
--- NOTE | 2022-02-28 07:20 | NUR ---
RECEIVED ENDORSEMENT FROM [employer] MONITOR FINAL NURSE. PT.ASLEEP. BREATHING UNLABORED ON RA. A&OX1. PT. IS BED BOUND. INCONTINENT OF THE BOWEL AND BLADDER. SKIN TEAR ON THE LEFT SMITH. SKIN IS WARM AND DRY. IV IN PLACE ON RIGHT AC, 22G, INFUSING WELL. PT IS STABLE. SITTER AT THE BEDSIDE. RESTRAINTS BILAT WRIST IN PLACE. PLAN OF CARE DISCUSSED.
--- NOTE | 2022-02-28 07:21 | NUR ---
ENDORSED TO AM SHIFT NURSE FOR CONTINUITY OF CARE. NEW SITTER NEAR DOOR MONITORING PATIENT FOR SAFETY.
[2022-02-28 08:00] VITALS: BP 123/84
[2022-02-28] MEDS: HYDROCOLLOID DRESSING TP SCH (09:00)
--- NOTE | 2022-02-28 09:30 | NUR ---
PT IS STABLE. NO CHANGE IN CONDITION. SITTER AT BEDSIDE FOR OBSERVATION. RESTRAINTS IN PLACE.
[2022-02-28] MEDS: LACTULOSE 20 GM/30 ML UDC NG SCH (09:53)
[2022-02-28] MEDS: PANTOPRAZOLE 40 MG INJ VIAL IVP SCH (09:54)
[2022-02-28] MEDS: HALOPERIDOL 5 MG TAB PO SCH ×2 (09:55→21:09)
[2022-02-28] MEDS: CLONIDINE HYDROCHLORIDE 0.1 MG TAB PO SCH ×2 (09:57→21:08)
[2022-02-28] MEDS: MENTHOL/ZINC OXIDE 113 GM TUBE TP SCH (09:59)
[2022-02-28] MEDS: FOAM DRESSING TP SCH (10:00)
--- NOTE | 2022-02-28 12:00 | NUR ---
PT IS AWAKE AND SPEECH IS INCOMPREHENSIBLE. PT IS COMBATIVE WITH STAFF. ON RA WITH BREATHING UNLABORED. WILL CONTINUE TO MONITOR.
--- NOTE | 2022-02-28 14:38 | NUR ---
PT WAS CHANGED AND REPOSITIONED. PT IS ATTEMPTING TO PULL OUT IV LINE WHEN RELEASED RESTRAINTS. PT ALSO TRYING TO KICK STAFF. PT IS STABLE. WILL MONITOR.
[2022-02-28 16:00] VITALS: BP 118/88
--- NOTE | 2022-02-28 16:00 | NUR ---
PT LYING ON HIS BED, AWAKE. PT IS KICKING AT TIMES. PT BREATHING UNLABORED. WILL CONTINUE TO MONITOR.
[2022-02-28] MEDS: DEXT 5% / NACL 0.45% 1,000 ML IV SCH (17:24)
--- NOTE | 2022-02-28 18:00 | NUR ---
IV LINE ON RIGHT AC WAS INFILTRATED. TOOK IV OUT, AND BLEEDING CONTROLLED. CHARGE NURSE INSERTED NEW IV LINE, ON RIGHT HAND 20G SALINE LOCKED.
--- NOTE | 2022-02-28 19:20 | NUR ---
GAVE REPORT TO [employer] CONSULTANT NURSE. PT IS NOT IN DISTRESS AT THIS TIME. V/S ARE STABLE. DISCUSSED PLAN OF CARE.
--- NOTE | 2022-02-28 19:21 | NUR ---
RECEIVED PATIENT FROM LORY WILDER FOR CONTINUITY OF CARE. PATIENT IN BED CONTINUE TO THRASH LEGS ABOUT. SITTER AVAILABLE TO MONITOR FOR PATIENTS SAFETY. PATIENT IS ALERT AND ORIENTED X 1. NO NOTED FACIAL GRIMACING OR CALLING OUT FOR ANY PAIN/DISCOMFORT. ON ROOM AIR. RESPIRATIONS EVEN AND UNLABORED. IV SITE CLEAN AND PATENT ON THE RIGHT HAND WITH 22 UMAIR. BILATERAL WRIST RESTRAINS AND POSSIBLE RENEWAL FOR 0725. NOTED DRESSING ON LEFT LOWER LEG WILL ATTEMPT TO CHANGE D/T SOILED DRESSING. PATIENT IS BEDREST WITH ALARMS IN PLACE FOR FALL RISK ANS SAFETY. BED AT THE LOWEST POSITION SIDE RAILS X 2 FOR SAFETY. WILL CONTINUE TO MONITOR FOR NEEDS AND SAFETY. [email or web address]
--- NOTE | 2022-02-28 19:26 | NUR ---
SPOKE TO DR. BARAHONA WHO IS ASSESSING PT AT BEDSIDE. HE PLACED ORDER FOR THORAZINE 50 MG IM Q4HR PRN AND PHENERGAN 25 MG IM Q 4HR PRN. HE STATES THAT THE COMBINATION WILL HELP CALM AND SEDATE PATIENT. WILL CALL PHARMACY TO ENSURE ORDER.
--- NOTE | 2022-02-28 19:36 | NUR ---
CALLED [facility] [facility] BECAUSE THORAZINE WAS ONLY AVAILABLE PO NOT IM. TEETEE FROM [facility] [phone] STATED THE TRADE NAME FOR THE MEDICATION WAS CHLORPROMAZINE. HE PROVIDED SPELLING FOR MEDICATION. THE MEDICATION UNDER THE TRADE NAME IS AVAILABLE IM. WILL PLACE ORDER REQUESTED BY DR. BARAHONA.
--- NOTE | 2022-02-28 19:40 | NUR ---
Patient's Plan of Care was discussed and reviewed with CONTRACTS DIRECTOR: KAMINI ABREU
[2022-02-28 20:00] VITALS: BP 126/93
--- NOTE | 2022-02-28 20:16 | NUR ---
PATIENT WQAS TRANSPORTED IN BED WITH BILATERAL WRIST RESTRAINS BY RADIOLOGY FOR CT SCAN PER MD ORDERS. VITAL SIGNS GIVEN AND SAFETY REPORT. [email or web address]
--- NOTE | 2022-02-28 20:32 | NUR ---
PATIENT HAS RETURNED FROM CT SCAN. BED LOCKED INTO PLACE. SIDE RAILS UP FOR SAFETY. NURSING WILL CONTINUE TO MONITOR. SITTER HAS RESUMED SAFETY CHECK PER MD ORDERS. [email or web address]
--- NOTE | 2022-02-28 23:21 | NUR ---
PATIENT NOTED IN BED THRASHING LEGS IN BED. CONTINUES ON SOFT BILATERAL SOFT WRIST RESTRAINS BECAUSE OF SAFETY. NO NOTED S/SX ACUTE DISTRESS/PAIN. NO NOTED S/SX ACUTE RESPIRATORY DISTRESS DISCOMFORT. ALL SAFETY MEASURES ARE IN PLACE. SITTER REMAINS IN PLACE FOR SAFETY MEASURES. WILL CONTINUE TO MONITOR.
[2022-03-01] MEDS: HYDRAGUARD CREAM TP SCH ×2 (01:26→13:00)
--- NOTE | 2022-03-01 03:21 | NUR ---
PT IS STABLE AND QUIET IN BED. FLACC 0. RESPIRATIONS EVEN AND UNLABORED WITH NO APPARENT S/SX OF ACUTE DISTRESS. WHITE COMMUNICATION BOARD UPDATED. ALL SAFETY MEASURES IN PLACE. CALL LIGHT WITHIN REACH. WILL CONTINUE TO MONITOR.
[2022-03-01 04:00] VITALS: BP 138/76
--- NOTE | 2022-03-01 05:13 | NUR ---
PATIENT REMAINS IN BED WITH BILATERAL WRIST RESTRAINS. PATIENT HAS SLOWED DOWN IN THRASHING HIS LEGS AGAINST THE BED. VITAL SIGNS WERE TAKEN AND WITHIN NORMAL LIMITS NO NOTED S/SX OR RESPIRATORY DISTRESS. NO NOTED ACUTE PAIN/DISCOMFORT. SAFETY MEASURES ARE IN PLACE. CALL LIGHT WITHIN REACH. WILL CONTINUE TO MONITOR.
[2022-03-01 06:49] LABS: BASOPHILS # (AUTO) 0.1 K/uL (0.00-0.22); BASOPHILS % (AUTO) 0.6 % (0.0-2.0); EOSINOPHILS # (AUTO) 0.3 K/uL (0-0.4); EOSINOPHILS % (AUTO) 2.9 % (0.0-4.0); HEMATOCRIT 39.2 % (36-52); HEMOGLOBIN 13.2 g/dL (12.0-18.0); LYMPHOCYTES # (AUTO) 1.6 K/uL (2.0-11.5); LYMPHOCYTES % (AUTO) 13.1 % (20.5-51.1); MEAN CORPUSCULAR HEMOGLOBIN 32 pg (27-31); MEAN CORPUSCULAR HGB CONC 34 g/dL (33-37); MEAN CORPUSCULAR VOLUME 93.7 fL (80-94); MONOCYTES # (AUTO) 1.3 K/uL (0.8-1.0); MONOCYTES % (AUTO) 10.6 % (1.7-9.3); NEUTROPHILS # (AUTO) 8.7 K/uL (1.8-7.7); NEUTROPHILS % (AUTO) 72.8 % (42.2-75.2); PLATELET COUNT (AUTO) 363 K/uL (140-450); RED BLOOD CELL COUNT(AUTO) 4.18 MIL/uL (4.20-6.10); RED CELL DISTRIBUTION WIDTH 13.6 % (11.6-13.7); WHITE BLOOD COUNT (AUTO) 11.9 K/uL (4.8-10.8)
--- NOTE | 2022-03-01 06:53 | NUR ---
MESSAGED DR. DELAROSA REGARDING RENEWAL OF NON-BEHAVIORAL RESTRAINTS. WILL CONTINUE TO MONITOR.
--- NOTE | 2022-03-01 07:22 | NUR ---
ENDORSED PATIENT TO WILLIAM RN FOR CONTINUITY OF CARE. PATIENT IS STABLE.
[2022-03-01 07:51] LABS: ALBUMIN 2.7 g/dL (3.4-5.0); ANION GAP 14.3 (8-16); CARBON DIOXIDE 24.3 mmol/L (21-32); CREATININE 1.3 mg/dL (0.6-1.3); POTASSIUM 3.6 mmol/L (3.5-5.1)
--- NOTE | 2022-03-01 08:00 | NUR ---
RECEIVED PATIENT RESTLESS AND AGITATED, PATIENT A&OX1, PATIENT KICKING LEGS CONTINUOUSLY WHILE IN BED, PATEIN HAS SOFT 2 POINT RESTRAINTS ON BOTH WRIST, PATIENT BREATHING THROUGH MOUTH ON ROOM AIR, MOUTH IS DRY. MOUTH MOISTURIZER APPLIED. WILL CONTINUE TO MONITOR.
[2022-03-01] MEDS: CLONIDINE HYDROCHLORIDE 0.1 MG TAB PO SCH ×2 (09:00→21:39)
[2022-03-01] MEDS: MENTHOL/ZINC OXIDE 113 GM TUBE TP SCH (09:00)
[2022-03-01] MEDS: LACTULOSE 20 GM/30 ML UDC NG SCH (09:00)
[2022-03-01] MEDS: HALOPERIDOL 5 MG TAB PO SCH ×2 (09:00→21:40)
--- NOTE | 2022-03-01 09:05 | NUR ---
WOUND CARE RE-EVALUATION NOTE: PT WITH RESTLESS BEHAVIOR,SWING TRUNK OF BODY AND STRIKE LEGS CONSTANTLY WITH BILATERAL SOFT WRIST RESTRAINS IN PLACE, 1:1 SITTER AT BED SIDE. LLE WOUND RESPONDING TO TX, WOUND PHOTO OBTAINED AND PLACED TO CHART. DRESSING CHANGED. POC DISCUSSED WITH PRIMARY RN WILLIAM. LEFT FOREARM AND LEFT ELBOW SKIN TEAR WITH THIN SCAB, RIGHT BUTTOCK SKIN THIN ABRASIONS 4X2CM SUPERFICIAL DEPTH,DRY. LLE SKIN TEAR 10X3X0.1CM WOUND BED PALE PINK,MOIST, NO ODOR, NELSON WOUND SKIN INTACT. SCABBING SKIN PAIN 0/10
[2022-03-01] MEDS: PANTOPRAZOLE 40 MG INJ VIAL IVP SCH (09:10)
--- NOTE | 2022-03-01 15:00 | NUR ---
PATIENT UNABLE TO SWALLOW, COUGHS WHEN FED AND HOLD FOOD IN MOUTH. LUNGS CLEAR
[2022-03-01] MEDS: chlorproMAZINE 25 MG/ML AMP IM PRN ×2 (15:04→22:43)
[2022-03-01] MEDS: PROMETHAZINE 25 MG/ML VIAL IM PRN ×2 (15:04→22:43)
[2022-03-01] MEDS: DEXT 5% / NACL 0.45% 1,000 ML IV SCH (15:23)
[2022-03-01 16:00] VITALS: BP 129/75
--- NOTE | 2022-03-01 19:05 | NUR ---
RECEIVED ENDORSEMENT FROM TINA THOMAS FOR CONTINUITY OF CARE. PT IS STABLE AND AWAKE IN BED. A&0X2. ABLE TO FOLLOW COMMANDS. DENIES PAIN. ON ROOM AIR WITH NO APPARENT S/SX OF ACUTE DISTRESS. RESPIRATIONS EVEN AND UNLABORED. BILAT SOFT WRIST RESTRAINTS PRESENT. ACTIVE ORDER PRESENT. IV SITE TO THE R HAND 22G PATENT/INTACT WITH D5NS1/2 INFUSING AT 50 ML/HR. PT IS ON BEDREST. PT IS INCONTINENT OF VOID AND BM AND UTILIZES PULL UPS. DRESSING ON LLE DRY AND INTACT. PLAN OF CARE AND WHITE COMMUNICATION BOARD UPDATED. FAMILY MEMBER AND SITTER AT BEDSIDE. ALL SAFETY MEASURES IN PLACE. BED IN LOW/LOCKED POSITION. CALL LIGHT WITHIN REACH. WILL CONTINUE TO MONITOR.
--- NOTE | 2022-03-01 19:30 | NUR ---
Patient's Plan of Care was discussed and reviewed with ANTONELLA: BRADY
[2022-03-01 20:00] VITALS: BP 123/79
--- NOTE | 2022-03-01 21:05 | NUR ---
ADMINISTERED PO MEDS PER MD ORDER. TOLERATED WELL. PT IS STABLE AND CALM. FLACC 0. RESPIRATIONS EVEN AND UNLABORED WITH NO APPARENT S/SX OF ACUTE DISTRESS. ALL SAFETY MEASURES IN PLACE. BED IN LOW/LOCKED POSITION. SITTER PRESENT. WILL CONTINUE TO MONITOR.
--- NOTE | 2022-03-01 23:05 | NUR ---
PATIENT IS STABLE AND ASLEEP. CHEST IS RISING AND FALLING. PATIENT IS BREATHING THROUGH MOUTH AND SNORING. RESPIRATIONS EVEN AND UNLABORED WITH NO APPARENT S/SX OF ACUTE DISTRESS. WHITE COMMUNICATION BOARD UPDATED. SITTER PRESENT. ALL SAFETY MEASURES IN PLACE. BED IN LOW/LOCKED POSITION. BILATERAL SOFT WRIST RESTRAINTS IN PLACE. WILL CONTINUE TO MONITOR.
--- NOTE | 2022-03-02 01:05 | NUR ---
CHECKED PATIENT. STABLE AND ASLEEP WITH HOB ELEVATED AT 30 DEGREES. CHEST IS RISING AND FALLING. RESPIRATIONS EVEN AND UNLABORED WITH NO APPARENT S/SX OF ACUTE DISTRESS. WHITE COMMUNICATION BOARD UPDATED. SITTER PRESENT. ALL SAFETY MEASURES IN PLACE. BED IN LOW/LOCKED POSITION. BILATERAL SOFT WRIST RESTRAINTS IN PLACE. WILL CONTINUE TO MONITOR.
[2022-03-02] MEDS: HYDRAGUARD CREAM TP SCH ×2 (01:31→13:09)
--- NOTE | 2022-03-02 03:05 | NUR ---
PATIENT REMAINS STABLE AND ASLEEP. CHEST IS RISING AND FALLING EVENLY. RESPIRATIONS EVEN AND UNLABORED WITH NO APPARENT S/SX OF ACUTE DISTRESS. WHITE COMMUNICATION BOARD UPDATED. ALL SAFETY MEASURES IN PLACE. BED IN LOW/LOCKED POSITION. BILATERAL SOFT WRIST RESTRAINTS IN PLACE. 1:1 SITTER PRESENT. WILL CONTINUE TO MONITOR.
[2022-03-02 04:00] VITALS: BP 128/89
--- NOTE | 2022-03-02 05:05 | NUR ---
CLEANED AND CHANGED PATIENT WITH EDUARDO DUVALL. PROVIDED ORAL CARE AND APPLIED LIP MOISTURIZER. TOLERATED WELL. FLACC 0. RESPIRATIONS EVEN AND UNLABORED WITH NO APPARENT S/SX OF ACUTE DISTRESS. ALL NEEDS MET. WHITE COMMUNICATION BOARD UPDATED. ALL SAFETY MEASURES IN PLACE. BED IN LOW/LOCKED POSITION. CALL LIGHT WITHIN REACH. 1:1 SITTER PRESENT. WILL CONTINUE TO MONITOR.
--- NOTE | 2022-03-02 07:05 | NUR ---
ENDORSED PATIENT TO TINA HERNANDEZ FOR CONTINUITY OF CARE. PATIENT IS STABLE.
[2022-03-02 07:19] LABS: BASOPHILS # (AUTO) 0.1 K/uL (0.00-0.22); BASOPHILS % (AUTO) 0.5 % (0.0-2.0); EOSINOPHILS # (AUTO) 0.3 K/uL (0-0.4); EOSINOPHILS % (AUTO) 2.3 % (0.0-4.0); HEMATOCRIT 37.5 % (36-52); HEMOGLOBIN 12.3 g/dL (12.0-18.0); LYMPHOCYTES # (AUTO) 1.2 K/uL (2.0-11.5); LYMPHOCYTES % (AUTO) 10.8 % (20.5-51.1); MEAN CORPUSCULAR HEMOGLOBIN 31 pg (27-31); MEAN CORPUSCULAR HGB CONC 33 g/dL (33-37); MEAN CORPUSCULAR VOLUME 95.8 fL (80-94); MONOCYTES # (AUTO) 1.1 K/uL (0.8-1.0); MONOCYTES % (AUTO) 9.4 % (1.7-9.3); NEUTROPHILS # (AUTO) 8.6 K/uL (1.8-7.7); PLATELET COUNT (AUTO) 276 K/uL (140-450); RED BLOOD CELL COUNT(AUTO) 3.91 MIL/uL (4.20-6.10); RED CELL DISTRIBUTION WIDTH 14.2 % (11.6-13.7); WHITE BLOOD COUNT (AUTO) 11.2 K/uL (4.8-10.8)
[2022-03-02 07:38] LABS: ALBUMIN 2.3 g/dL (3.4-5.0); ANION GAP 11.7 (8-16); CARBON DIOXIDE 24.7 mmol/L (21-32); CREATININE 1.4 mg/dL (0.6-1.3); POTASSIUM 3.4 mmol/L (3.5-5.1); TOTAL BILIRUBIN 0.5 mg/dL (0.0-1.0)
[2022-03-02] MEDS ORDERED: DEXTROSE 50% 50 ML SYR IVP PRN (08:25)
[2022-03-02] MEDS: DEXT 5% / NACL 0.45% 1,000 ML IV SCH (08:40)
[2022-03-02] MEDS: MENTHOL/ZINC OXIDE 113 GM TUBE TP SCH (09:00)
[2022-03-02] MEDS: PANTOPRAZOLE 40 MG INJ VIAL IVP SCH (10:05)
[2022-03-02] MEDS: CLONIDINE HYDROCHLORIDE 0.1 MG TAB PO SCH ×2 (10:12→21:55)
[2022-03-02] MEDS: HALOPERIDOL 5 MG TAB PO SCH ×2 (10:13→21:55)
[2022-03-02] MEDS: LACTULOSE 20 GM/30 ML UDC NG SCH (10:13)
--- NOTE | 2022-03-02 10:26 | NUR ---
(03/02/22) RD FOLLOW UP COMPLETED PLEASE REFER TO NUTRITION PROGRESS NOTE UNDER CARE ACTIVITY FOR ESTIMATED NUTRITION NEEDS. RD RECOMMENDATIONS: 1. CONSIDER ADDING CCHO DIET RESTRICTION TO CURRENT DIET ORDER FOR BETTER GLUCOSE CONTROL. 2. CONSIDER ALTERNATIVE ROUTE OF NUTRITION IF POOR PO INTAKES CONTINUE. 3. CONTINUE PUREE DIET WITH HONEY-THICK LIQUIDS TOLERATED. 4. CONTINUE NEPRO BID WITH THICKENER PER RD PROTOCOL. 5. RD TO FOLLOW-UP 2-3 DAYS, HIGH RISK. AMAIRANI MUNOZ MS, RDN
--- NOTE | 2022-03-02 10:55 | NUR ---
0700 RECEIVED ENDORSE FROM PM SHIFT NURSE, PIV @R. FOREARM PATENT WITH D5 1/2NS INFUSING.
--- NOTE | 2022-03-02 10:57 | NUR ---
1000 PT STILL SLEEPING, UNABLE TO WAKE TO WAKE. NURSE UNABLE TO COMPLETE ADMINISTRATE PO MEDICATIONS
[2022-03-02] MEDS: BLOOD GLUCOSE MONITORING 1 DEV DEV FS SCH ×2 (12:18→17:26)
[2022-03-02] MEDS: INSULIN LISPRO SLIDING SCALE 100 UNITS/ML VIAL SUBQ PRN (12:19)
[2022-03-02 16:00] VITALS: BP 113/73
--- NOTE | 2022-03-02 19:25 | NUR ---
ENDORSE PT TO PM SHIFT NURSE, PIV @R. FOREARM PATENT WITH D5 1/2NS INFUSING, PT AWAKE
--- NOTE | 2022-03-02 19:26 | NUR ---
RECD. RESTING IN BED, F RESPIRATION EVEN AND UNLABORED. IV OF D5 0.45% NS INFUSING AT 50 ML/HR, RIGHT HAND G22. ON BILATERAL SOFT WRIST RESTRAINTS. WITH RESTLESSNESS AND OCCASIONALLY KICKS LEFT LOWER EXTREMITY. WOUND IN THE LEFT LEG COVERED WITH DRESSING DRY AND INTACT. ON 1:1 SITTER. GIRLFRIEND AT THE BEDSIDE. NO APPEARANCE OF PAIN NOTED, FLACC -0.
[2022-03-02 20:00] VITALS: BP 118/94
--- NOTE | 2022-03-02 21:00 | NUR ---
SLEEPING COMFORTABLY IN BED, RESPIRATION EVEN AND UNLABORED.
--- NOTE | 2022-03-02 21:55 | NUR ---
HOB ELEVATED 40 DEGREES. SCHEDULED MEDICATIONS ADMINISTERED WITH PUDDING, TOLERATED WELL.
--- NOTE | 2022-03-02 23:00 | NUR ---
CLEANSED AND DIAPER CHANGED. KEPT ON MOVING AND PUTTING OUT BILATERAL BLE OUT OF BED, TRIES TO KICK NURSES.
[2022-03-03] VITALS: BP 144/88
[2022-03-03] MEDS: INSULIN LISPRO SLIDING SCALE 100 UNITS/ML VIAL SUBQ PRN ×2 (00:43→06:57)
[2022-03-03] MEDS: HYDRAGUARD CREAM TP SCH ×2 (01:00→13:00)
--- NOTE | 2022-03-03 01:00 | NUR ---
AWAKE IN BED, PUSHING SELF DOWN TO THE FOOT OF THE BED, REORIENTED TO HOSPITAL SETTING.
--- NOTE | 2022-03-03 03:00 | NUR ---
WITH RESTLESSNESS. OCCASIONALLY KICKS SIDE RAILS.
[2022-03-03] MEDS: DEXT 5% / NACL 0.45% 1,000 ML IV SCH ×2 (04:40→11:16)
--- NOTE | 2022-03-03 06:00 | NUR ---
CLEANSED AND MADE COMFORTABLE IN BED. SAFETY MAINTAINED.
[2022-03-03] MEDS: BLOOD GLUCOSE MONITORING 1 DEV DEV FS SCH ×5 (06:56→20:53)
--- NOTE | 2022-03-03 07:35 | NUR ---
NEW SITTER MONITORING PATIENT. ENDORSED TO AM SHIFT NURSE FOR CONTINUITY OF CARE.
[2022-03-03] MEDS: FOAM DRESSING TP SCH (09:00)
[2022-03-03] MEDS: PANTOPRAZOLE 40 MG INJ VIAL IVP SCH (09:27)
[2022-03-03] MEDS: LACTULOSE 20 GM/30 ML UDC NG SCH (09:28)
[2022-03-03] MEDS: HALOPERIDOL 5 MG TAB PO SCH ×2 (09:29→22:36)
[2022-03-03] MEDS: CLONIDINE HYDROCHLORIDE 0.1 MG TAB PO SCH ×2 (09:29→22:36)
[2022-03-03] MEDS: HYDROCOLLOID DRESSING TP SCH (09:30)
[2022-03-03] MEDS: MENTHOL/ZINC OXIDE 113 GM TUBE TP SCH (09:30)
[2022-03-03 12:00] VITALS: BP 146/82
[2022-03-03] MEDS: POTASSIUM CHLORIDE 10 MEQ TABER PO PRN (13:45)
[2022-03-03 14:34] VITALS: BP 154/96
[2022-03-04] MEDS: HYDRAGUARD CREAM TP SCH ×2 (01:00→13:00)
[2022-03-04 01:19] VITALS: BP 139/92
[2022-03-04] MEDS ORDERED: DEXTROSE 50% 50 ML SYR IVP PRN (06:50)
--- NOTE | 2022-03-04 07:23 | NUR ---
RECIEVED REPORT FROM NIGHT NURSE , PATIENT SEEMS MOVING IN BED WRIST RESTRAINT ON BED IS PADDED. [id number]
[2022-03-04] MEDS: BLOOD GLUCOSE MONITORING 1 DEV DEV FS SCH ×4 (07:30→21:50)
[2022-03-04 08:00] VITALS: BP 158/56
[2022-03-04] MEDS: PANTOPRAZOLE 40 MG INJ VIAL IVP SCH (09:00)
[2022-03-04] MEDS: LACTULOSE 20 GM/30 ML UDC NG SCH (09:34)
[2022-03-04] MEDS: HALOPERIDOL 5 MG TAB PO SCH ×2 (09:36→17:00)
[2022-03-04] MEDS: CLONIDINE HYDROCHLORIDE 0.1 MG TAB PO SCH ×2 (09:37→21:44)
[2022-03-04] MEDS: MENTHOL/ZINC OXIDE 113 GM TUBE TP SCH (09:52)
[2022-03-04] MEDS: PROMETHAZINE 25 MG/ML VIAL IM PRN (13:00)
[2022-03-04] MEDS: chlorproMAZINE 25 MG/ML AMP IM PRN (13:05)
[2022-03-04 16:00] VITALS: BP 153/89
--- NOTE | 2022-03-04 19:10 | NUR ---
RECEIVED ENDORSEMENT FROM TINA ZELAYA FOR CONTINUITY OF CARE. PATIENT IS RESTING AND STABLE. A&OX1. VERBALLY RESPONSIVE AND ABLE TO COMMUNICATE NEEDS. ON ROOM AIR WITH NO APPARENT S/SX OF ACUTE DISTRESS. RESPIRATIONS EVEN AND UNLABORED. PATIENT IS ON BEDREST. BILAT SOFT WRIST RESTRAINTS IN PLACE. ACTIVE ORDER IN PLACE. PATIENT'S IV SITE TO RFA 20G IS PATENT/INTACT. SITTER PRESENT. PLAN OF CARE AND WHITE COMMUNICATION BOARD UPDATED. ALL SAFETY MEASURES IN PLACE. CALL LIGHT WITHIN REACH. WILL CONTINUE TO MONITOR.
[2022-03-04 20:00] VITALS: BP 144/76
--- NOTE | 2022-03-04 21:05 | NUR ---
ADMINISTERED SCHEDULED PO MEDS PER MD ORDER. TOLERATED WELL. RESPIRATIONS EVEN AND UNLABORED WITH NO APPARENT S/SX OF ACUTE DISTRESS. WHITE COMMUNICATION BOARD UPDATED. ALL SAFETY MEASURES IN PLACE. CALL LIGHT WITHIN REACH. SITTER PRESENT. WILL CONTINUE TO MONITOR.
--- NOTE | 2022-03-04 21:30 | NUR ---
Patient's Plan of Care was discussed and reviewed with AGRICULTURAL LOAN OFFICER: BRADY SUÁREZ
[2022-03-04] MEDS: INSULIN LISPRO SLIDING SCALE 100 UNITS/ML VIAL SUBQ PRN (21:51)
--- NOTE | 2022-03-04 23:10 | NUR ---
PATIENT IS STABLE AND RESTING IN BED. CHEST IS RISING AND FALLING EVENLY. RESPIRATIONS EVEN AND UNLABORED WITH NO APPARENT S/SS OF ACUTE DISTRESS. WHITE COMMUNICATION BOARD UPDATED. ALL SAFETY MEASURES IN PLACE. BED IN LOW/LOCKED POSITION 1:1 SITTER PRESENT. WILL CONTINUE TO MONITOR.
--- NOTE | 2022-03-05 01:10 | NUR ---
CLEANED AND CHANGED PATIENT WITH EDUARDO DUVALL. TOLERATED WELL. PATIENT APPEARS TO BE AWAKE AND RESTLESS. WILL MEDICATE WITH PRN PER MD ORDER. FLACC 0. RESPIRATIONS EVEN AND UNLABORED WITH NO APPARENT S/SX OF ACUTE DISTRESS. WHITE COMMUNICATION BOARD UPDATED. ALL SAFETY MEASURES IN PLACE. BED IN LOW/LOCKED POSITION. 1:1 SITTER PRESENT. WILL CONTINUE TO MONITOR.
[2022-03-05] MEDS: HYDRAGUARD CREAM TP SCH ×2 (01:16→12:38)
[2022-03-05] MEDS: chlorproMAZINE 25 MG/ML AMP IM PRN ×2 (01:25→20:50)
[2022-03-05] MEDS: PROMETHAZINE 25 MG/ML VIAL IM PRN ×2 (01:25→20:48)
--- NOTE | 2022-03-05 03:10 | NUR ---
CHECKED PATIENT. STABLE AND ASLEEP IN BED. CHEST IS RISING AND FALLING EVENLY. RESPIRATIONS EVEN AND UNLABORED WITH NO APPARENT S/SX OF ACUTE DISTRESS. WHITE COMMUNICATION BOARD UPDATED. ALL SAFETY MEASURES IN PLACE. BED IN LOW/LOCKED POSITION. 1:1 SITTER PRESENT. WILL CONTINUE TO MONITOR.
[2022-03-05 04:00] VITALS: BP 138/80
--- NOTE | 2022-03-05 05:10 | NUR ---
PATIENT IS STABLE AND QUIET IN BED. PATIENT'S LEG MOVEMENT MINIMAL AT THIS TIME. PATIENT'S EYES ARE CLOSED BUT LEGS ARE MOVING UP AND DOWN A LITTLE BIT. FLACC 0. RESPIRATIONS EVEN AND UNLABORED WITH NO APPARENT S/SX OF ACUTE DISTRESS. ALL NEEDS MET. WHITE COMMUNICATION BOARD UPDATED. ALL SAFETY MEASURES IN PLACE. BED IN LOW/LOCKED POSITION. 1:1 SITTER PRESENT. WILL CONTINUE TO MONITOR.
[2022-03-05] MEDS: BLOOD GLUCOSE MONITORING 1 DEV DEV FS SCH ×4 (06:34→21:37)
[2022-03-05 06:46] LABS: BASOPHILS # (AUTO) 0.1 K/uL (0.00-0.22); BASOPHILS % (AUTO) 0.7 % (0.0-2.0); EOSINOPHILS # (AUTO) 0.5 K/uL (0-0.4); HEMATOCRIT 41.9 % (36-52); HEMOGLOBIN 14.1 g/dL (12.0-18.0); LYMPHOCYTES # (AUTO) 1.5 K/uL (2.0-11.5); LYMPHOCYTES % (AUTO) 13.5 % (20.5-51.1); MEAN CORPUSCULAR HEMOGLOBIN 32 pg (27-31); MEAN CORPUSCULAR HGB CONC 34 g/dL (33-37); MEAN CORPUSCULAR VOLUME 94.3 fL (80-94); MONOCYTES # (AUTO) 0.9 K/uL (0.8-1.0); MONOCYTES % (AUTO) 8.7 % (1.7-9.3); NEUTROPHILS # (AUTO) 7.8 K/uL (1.8-7.7); NEUTROPHILS % (AUTO) 72.1 % (42.2-75.2); PLATELET COUNT (AUTO) 261 K/uL (140-450); RED BLOOD CELL COUNT(AUTO) 4.44 MIL/uL (4.20-6.10); RED CELL DISTRIBUTION WIDTH 13.6 % (11.6-13.7); WHITE BLOOD COUNT (AUTO) 10.9 K/uL (4.8-10.8)
[2022-03-05 07:09] LABS: ANION GAP 13.5 (8-16); CARBON DIOXIDE 26.2 mmol/L (21-32); CREATININE 1.5 mg/dL (0.6-1.3); POTASSIUM 3.7 mmol/L (3.5-5.1)
--- NOTE | 2022-03-05 07:20 | NUR ---
ENDORSED PATIENT TO TINA HERNANDES FOR CONTINUITY OF CARE. PATIENT IS STABLE.
--- NOTE | 2022-03-05 07:30 | NUR ---
RECEIVED BEDSIDE REPORT FROM ACCOUNT SERVICES REPRESENTATIVE NURSE FOR CONTINUITY OF CARE. PT IS AWAKE WITH EYES OPEN. DOES NOT TRACK WITH EYES. SPEECH IS INCOMPREHENSIBLE. ON RA WITH BREATHING UNLABORED. PT IS A FEEDER WITH POOR APPETITE PER ACCOUNT SERVICES REPRESENTATIVE NURSE. INCONTINENT OF THE BOWEL AND BLADDER. SKIN IS WARM AND DRY. SCABS ON BODY AND LEFT SMITH SKIN TEAR. IV IS IN THE RIGHT FA 20 GAUGE SALINE LOCKED. PT IS STABLE. SITTER AT BEDSIDE.
[2022-03-05 08:00] VITALS: BP 103/71
[2022-03-05] MEDS: CLONIDINE HYDROCHLORIDE 0.1 MG TAB PO SCH ×2 (09:00→21:00)
--- NOTE | 2022-03-05 09:30 | NUR ---
PT IS STABLE. NO DISTRESS NOTED. ON RA WITH BREATHING UNLABORED. SITTER AT BEDSIDE. RESTRAINTS IN PLACE. RELEASED FOR 15 MINUTES FOR MOBILITY AND TURNING. PT APPEARED RESTLESS WHEN REMOVING RESTRAINTS. PULLING AT IV AND TRYING TO KICK STAFF. WILL CONTINUE TO MONITOR. BACK ON RESTRAINTS.
[2022-03-05] MEDS: LACTULOSE 20 GM/30 ML UDC NG SCH (09:39)
[2022-03-05] MEDS: HALOPERIDOL 5 MG TAB PO SCH ×4 (09:39→16:47)
[2022-03-05] MEDS: MENTHOL/ZINC OXIDE 113 GM TUBE TP SCH (09:40)
--- NOTE | 2022-03-05 12:06 | NUR ---
SITTER AT BEDSIDE. RESTRAINTS IN PLACE. PT WAS GIVEN WATER AND FEW BITES OF FOOD. PT DENIED ANY MORE FOOD OR DRINK. POOR APPETITE. WILL CONTINUE TO MONITOR.
[2022-03-05] MEDS: INSULIN LISPRO SLIDING SCALE 100 UNITS/ML VIAL SUBQ PRN (12:53)
--- NOTE | 2022-03-05 14:00 | NUR ---
SITTER AT BEDSIDE. PT IN RESTRAINTS, SOFT WRIST. PT IS COMBATIVE WITH STAFF AND NONCOMPLIANT. PT TRYING TO PULL OFF BANDAGE ON FOOT AND BANGING FEET AGAINST RAILING. ATTEMPTED TO REDIRECT ATTENTION. PADDED RAILINGS IN PLACE. WILL CONTINUE TO MONITOR.
[2022-03-05] MEDS: NACL 0.45% 1,000 ML IV SCH (14:36)
[2022-03-05 16:00] VITALS: BP 112/65
--- NOTE | 2022-03-05 16:18 | NUR ---
03/05/22 RD FOLLOW UP COMPLETED PLEASE REFER TO NUTRITION ASSESSMENT UNDER CARE ACTIVITY FOR ESTIMATED NUTRITIONAL NEEDS. 1. CONTINUE PUREE, HONEY THICK LIQUID DIET TOLERATED 2. RECOMMEND SUSHANT BID FOR NUTRITION SUPPORT 3. CONTINUE NEPRO BID PER RD PROTOCOL 4. RD TO FOLLOW-UP 3-5 DAYS, MODERATE RISK REVIEWED BY MIGDALIA FINNEY RD
--- NOTE | 2022-03-05 17:00 | NUR ---
PT WAS CHANGED AND REPOSITIONED. PT IS CALM AT THIS MOMENT. WAS GIVEN NUTRITION SHAKE AND THICKENED NECTAR REQUESTED. PT IS STABLE. SITTER AT BEDSIDE. RESTRAINTS IN PLACE.
--- NOTE | 2022-03-05 19:24 | NUR ---
ENDORSED PT TO SENIOR JAVASCRIPT ENGINEER NURSE FOR CONTINUITY OF CARE. PT IS STABLE. PLAN OF CARE DISCUSSED.
--- NOTE | 2022-03-05 19:27 | NUR ---
RECEIVED PT FROM AM NURSE FOR CONTINUITY OF CARE. PT IS STABLE.
[2022-03-05] MEDS: INSULIN LANTUS 100 UNITS/ML 10 ML VIAL SUBQ SCH (21:00)
--- NOTE | 2022-03-05 21:30 | NUR ---
ALL MED GIVEN AT THIS TIME, ALL SAFETY MEASURES IN PLACE,NO DISTRESS NOTED.
--- NOTE | 2022-03-05 23:30 | NUR ---
PATIENT IIN BED , NO AGITATION NOTED ,BREATHING EVEN AND UNLABORED,NO DISTRESS NOTED
--- NOTE | 2022-03-06 02:00 | NUR ---
PATIENT SLEEPING AT THIS TIME,BREATHING EVEN AND UNLABORED,ALL SAFETY MEASURES IN PLACE
[2022-03-06 04:00] VITALS: BP 106/61
[2022-03-06] MEDS: NACL 0.45% 1,000 ML IV SCH ×2 (04:25→17:10)
[2022-03-06] MEDS: HYDRAGUARD CREAM TP SCH ×2 (04:27→12:08)
--- NOTE | 2022-03-06 06:00 | NUR ---
PATIENT IN BED ,NO AGIRATION NOTED,RESPIRATION EVEN AND UNLABORED,NO DISTRESS NOTED.
[2022-03-06] MEDS: BLOOD GLUCOSE MONITORING 1 DEV DEV FS SCH ×4 (06:49→21:06)
--- NOTE | 2022-03-06 07:20 | NUR ---
RECEIVED BEDSIDE REPORT FROM DE ICER NURSE FOR CONTINUITY OF CARE. PT IS AWAKE AND SPEECH IS INCOMPREHENSIBLE. ON RA WITH BREATHING UNLABORED. RESTRAINTS IN PLACE ON BILAT WRIST. SITTER AT BEDSIDE. INCONTINENT OF THE BOWEL AND BLADDER. PT IS STABLE. PLAN OF CARE DISCUSSED.
--- NOTE | 2022-03-06 07:28 | NUR ---
ENDORSED PT TO AM NURSE FOR CONTINUITY OF CARE. PT IS STABLE
[2022-03-06 08:00] VITALS: BP 119/75
[2022-03-06] MEDS: CLONIDINE HYDROCHLORIDE 0.1 MG TAB PO SCH ×2 (08:40→20:55)
[2022-03-06] MEDS: HALOPERIDOL 5 MG TAB PO SCH ×3 (08:40→20:54)
[2022-03-06] MEDS: LACTULOSE 20 GM/30 ML UDC NG SCH (08:41)
[2022-03-06] MEDS: FOAM DRESSING TP SCH (08:48)
[2022-03-06] MEDS: MENTHOL/ZINC OXIDE 113 GM TUBE TP SCH (08:48)
[2022-03-06] MEDS: HYDROCOLLOID DRESSING TP SCH (08:49)
--- NOTE | 2022-03-06 09:30 | NUR ---
PT IS STABLE. MOVING BACK IN FORTH IN BED. NO DISTRESS NOTED. PT WAS GIVEN NUTRITION SHAKE. PT HAS POOR APPETITE. REFUSED MOST OF THE BREAKFAST. RESTRAINTS AND SITTER IN PLACE. WILL MONITOR.
--- NOTE | 2022-03-06 12:00 | NUR ---
PT IS AWAKE WITH ALOC. PT IS DIFFICULT TO REDIRECT ATTENTION. COMBATIVE WITH STAFF, TRYING TO KICK SITTER. PT IS RESTLESS. STABLE AT THIS TIME. WILL MONITOR. SITTER AND RESTRAINT IN PLACE.
[2022-03-06] MEDS: INSULIN LISPRO SLIDING SCALE 100 UNITS/ML VIAL SUBQ PRN ×2 (12:10→17:20)
--- NOTE | 2022-03-06 14:30 | NUR ---
PT WAS CHANGED AND REPOSITIONED. PT YELLING PROFANITIES AT STAFF HE WAS BEING CHANGED. ATTEMPTING TO HIT AND KICK STAFF. PT IS NOW RESTING WITH RESTRAINTS ON. WILL CONTINUE TO MONITOR. ONE TO ONE OBSERVATION WITH SITTER.
[2022-03-06 16:00] VITALS: BP 127/58
--- NOTE | 2022-03-06 17:00 | NUR ---
PT IS STABLE. MOVING AROUND IN BED KICKING LEGS IN THE AIR. NO RESPIRATORY DISTRESS NOTED ON RA. IV IS PATENT AND INTACT. SITTER AT BEDSIDE. WILL CONTINUE TO MONITOR.
--- NOTE | 2022-03-06 19:45 | NUR ---
ENDORSED PT TO SPAR MACHINE OPERATOR HELPER NURSE FOR CONTINUITY OF CARE. PT IS STABLE. PLAN OF CARE DISCUSSED.
--- NOTE | 2022-03-06 19:46 | NUR ---
RECD. RESTING IN BED, AWAKE, ALERT. RESPIRATION EVEN AND UNLABORED. IV OF 0.45% NS INFUSING AT 75 ML/HR, RIGHT HAND G 22. DOES NOT ANSWER QUESTIONS, DROWSY BUT KEEP ON MOVING BILATERAL LOWER EXTREMITIES. GIRLFRIEND AT THE BEDSIDE, CLEANING PATIENT'S FEET AND TRIMMING PT NAILS WITH A NAIL FILE. ON BILATERAL SOFT WRIST RESTRAINTS. KEEP ON KICKING USING LEFT FOOT. PADS AROUND BED TO PREVENT PATIENT FROM HURTING SELF. NO APPEARANCE OF PAIN NOTED, FLACC - 0.
--- NOTE | 2022-03-06 20:00 | NUR ---
Patient's Plan of Care was discussed and reviewed with NUT ORCHARDIST: DEE PEDRO
--- NOTE | 2022-03-06 20:55 | NUR ---
SCHEDULED MEDICATIONS ADMINISTERED WITH APPLE SAUCE, TOLERATED WELL.
[2022-03-06] MEDS: INSULIN LANTUS 100 UNITS/ML 10 ML VIAL SUBQ SCH (21:00)
--- NOTE | 2022-03-06 21:06 | NUR ---
LANTUS NOT ADMINISTERED, BS - 105. PATIENT IS REFUSING TO EAT. WILL CHECK AGAIN.
--- NOTE | 2022-03-06 22:30 | NUR ---
SLEEPING IN BED, RESPIRATION EVEN AND UNLABORED.
--- NOTE | 2022-03-06 23:35 | NUR ---
AWAKE, OCCASIONALLY KICKS, WITH RESTLESSNESS.
[2022-03-07] VITALS: BP 133/78
--- NOTE | 2022-03-07 00:30 | NUR ---
NO RESTLESSNESS, SLEEPING SUPINE IN BED.
[2022-03-07] MEDS: HYDRAGUARD CREAM TP SCH ×2 (01:00→13:00)
--- NOTE | 2022-03-07 01:10 | NUR ---
AWAKE AGAIN, STARTED TO KICK AND MOVE BILATERAL LE IN BED.
--- NOTE | 2022-03-07 01:15 | NUR ---
WENT BACK TO SLEEP AGAIN.
--- NOTE | 2022-03-07 02:20 | NUR ---
AWAKE WITH RESTLESSNESS BUT WENT BACK TO SLEEP AGAIN AFTER 15 MINUTES.
--- NOTE | 2022-03-07 04:00 | NUR ---
STILL SLEEPING COMFORTABLY IN BED. RESPIRATION EVEN AND UNLABORED.
[2022-03-07] MEDS: NACL 0.45% 1,000 ML IV SCH ×3 (04:15→21:20)
--- NOTE | 2022-03-07 06:00 | NUR ---
CLEANSED AND DIAPER CHANGED WITH HELP OF AIR INTELLIGENCE OFFICER. SAFETY MAINTAINED.
[2022-03-07] MEDS: BLOOD GLUCOSE MONITORING 1 DEV DEV FS SCH ×4 (06:25→21:18)
--- NOTE | 2022-03-07 07:10 | NUR ---
CONDITION REMAIN STABLE. ENDORSED TO AM SHIFT NURSE FOR CONTINUITY OF CARE.
[2022-03-07 07:22] LABS: BASOPHILS # (AUTO) 0.1 K/uL (0.00-0.22); BASOPHILS % (AUTO) 0.6 % (0.0-2.0); EOSINOPHILS # (AUTO) 0.6 K/uL (0-0.4); EOSINOPHILS % (AUTO) 4.2 % (0.0-4.0); HEMATOCRIT 39.3 % (36-52); HEMOGLOBIN 13.2 g/dL (12.0-18.0); LYMPHOCYTES # (AUTO) 1.5 K/uL (2.0-11.5); LYMPHOCYTES % (AUTO) 11.2 % (20.5-51.1); MEAN CORPUSCULAR HEMOGLOBIN 32 pg (27-31); MEAN CORPUSCULAR HGB CONC 34 g/dL (33-37); MEAN CORPUSCULAR VOLUME 94.3 fL (80-94); MONOCYTES # (AUTO) 1.3 K/uL (0.8-1.0); MONOCYTES % (AUTO) 9.3 % (1.7-9.3); NEUTROPHILS # (AUTO) 10.1 K/uL (1.8-7.7); NEUTROPHILS % (AUTO) 74.7 % (42.2-75.2); PLATELET COUNT (AUTO) 234 K/uL (140-450); RED BLOOD CELL COUNT(AUTO) 4.17 MIL/uL (4.20-6.10); RED CELL DISTRIBUTION WIDTH 13.7 % (11.6-13.7); WHITE BLOOD COUNT (AUTO) 13.5 K/uL (4.8-10.8)
[2022-03-07 07:55] LABS: ALBUMIN 2.6 g/dL (3.4-5.0); ANION GAP 14.6 (8-16); CARBON DIOXIDE 25.3 mmol/L (21-32); CREATININE 1.4 mg/dL (0.6-1.3); POTASSIUM 3.9 mmol/L (3.5-5.1); TOTAL BILIRUBIN 0.6 mg/dL (0.0-1.0)
[2022-03-07 08:00] VITALS: BP 129/80
[2022-03-07] MEDS: HALOPERIDOL 5 MG TAB PO SCH (09:31)
[2022-03-07] MEDS: LACTULOSE 20 GM/30 ML UDC NG SCH (09:31)
[2022-03-07] MEDS: CLONIDINE HYDROCHLORIDE 0.1 MG TAB PO SCH ×2 (09:42→21:12)
[2022-03-07] MEDS: MENTHOL/ZINC OXIDE 113 GM TUBE TP SCH (09:43)
[2022-03-07 17:14] VITALS: BP 138/89
[2022-03-07 20:00] VITALS: BP 147/91
[2022-03-07] MEDS: QUEtiapine FUMARATE 100 MG TAB PO SCH (21:11)
[2022-03-07] MEDS: OLANZapine 2.5 MG TAB PO SCH (21:11)
[2022-03-07] MEDS: INSULIN LANTUS 100 UNITS/ML 10 ML VIAL SUBQ SCH (21:24)
[2022-03-07 23:24] VITALS: BP 135/87
--- NOTE | 2022-03-07 23:40 | NUR ---
CALL TO MD FOR RESTRAINT RENEWAL ORDER FOR AGITATED PATIENT WHICH STILL IS ATTEMPTING TO GET OUT OF BED AND REMOVE EQUIPMENT WITH SITTER PRESENT. RAJ CASTILLO RN
[2022-03-08] MEDS: HYDRAGUARD CREAM TP SCH ×2 (03:48→13:00)
[2022-03-08 04:00] VITALS: BP 139/99
[2022-03-08] MEDS: BLOOD GLUCOSE MONITORING 1 DEV DEV FS SCH ×4 (06:54→21:22)
--- NOTE | 2022-03-08 07:11 | NUR ---
HANDOFF WITH TINA JOHNSON. RAJ CASTILLO RN
[2022-03-08] MEDS: CLONIDINE HYDROCHLORIDE 0.1 MG TAB PO SCH ×2 (09:00→21:00)
[2022-03-08] MEDS: QUEtiapine FUMARATE 100 MG TAB PO SCH ×2 (09:00→21:33)
[2022-03-08] MEDS: LACTULOSE 20 GM/30 ML UDC NG SCH (09:00)
[2022-03-08] MEDS: MENTHOL/ZINC OXIDE 113 GM TUBE TP SCH (09:00)
[2022-03-08] MEDS: NACL 0.45% 1,000 ML IV SCH ×2 (09:05→22:25)
--- NOTE | 2022-03-08 10:45 | NUR ---
SKIN ALTERATIONS ALL HEALED, NO OPEN WOUNDS AT THIS TIME. PT. REMAINS ON HIGH RISK SKIN BREAKS DUE TO HIS BEHAVIOR. Addendum: 03/11/22 at 9875 by Chelsie Perez RN (Grace) WOUND CARE NURSE SIGNED OFF THIS CASE. PLEASE CONTACT WOUND CARE NURSE FOR AND QUESTIONS OR NEW SKIN ALTERATION.
[2022-03-08 16:00] VITALS: BP 142/86
--- NOTE | 2022-03-08 19:45 | NUR ---
RECEIVED PATIENT FROM ELIZABETH WILDER FOR CONTINUITY OF CARE. PATIENT WAS IN BED WITH FAMILY (GRETA) AT BEDSIDE FEEDING THE PATIENT. PATIENT RESPONDS TO NAME AND UNDERSTAND MINIMAL COMMANDS TO EAT AND INTRODUCTIONS. PATIENT CONTINUES ON ORDERS FOR BILATERAL SOFT WRIST RESTRAINTS. PATIENT BED IS IN THE LOWEST LEVEL, SIDERAILS UP X 4 FOR SAFETY. PATIENT IS ON ROOM AIR BREATHING WITHOUT RESPIRATORY DISTRESS. PATIENT CONTINUES TO KICK OUT IN THE AIR. IV SITE CLEAN AND INTACT NO NOTED SWELLING FOR REDNESS. DRESSING TO LEFT LOWER LEG CLEAN AND INTACT. SITTER IS AT BEDSIDE MONITORING FOR SAFETY. [email or web address]
--- NOTE | 2022-03-08 20:00 | NUR ---
Patient's Plan of Care was discussed and reviewed with PLASTICS PROCESS HAND: EDEN JAY
[2022-03-08] MEDS: INSULIN LANTUS 100 UNITS/ML 10 ML VIAL SUBQ SCH (21:28)
[2022-03-08] MEDS: OLANZapine 2.5 MG TAB PO SCH (21:33)
--- NOTE | 2022-03-08 21:45 | NUR ---
PATIENT REMAINS ON BILATERAL WRIST RESTRAINTS. SITTER X 1 NURSE CHANGE PATIENT FROM SOILED LINEN AND KEPT CLEAN AND DRY. NO NOTED REDNESS TO COCCYX. EVENING MEDICATION WAS GIVEN WITHOUT INCIDENT. PATIENT CONTINUES TO KICK LEGS AGGRESSIVELY IN BED AND OCCASIONALLY YELL OUT. PATIENT DENIES PAIN/DISCOMFORT. NURSING INFORMED PATIENT IT WAS TIME TO REST AND SLEEP. PATIENT BECAME QUIET MOMENTARILY THEN CONTINUED TO KICK HIS LEGS. ALL SAFETY MEASURES ARE IN PLACE WITH SITTER. [email or web address]
--- NOTE | 2022-03-08 23:45 | NUR ---
PATIENT WAS CHECKED FOR WETNESS AND PATIENT REMAINS DRY AND CLEAN. PATIENT CONTINUES TO KICK LEGS AGAINST THE BED. RESTRAINTS RELEASED EVERY 15 MINUTES FOR REPOSITIONINGS AND NEEDED OR INCONTINENCE CHANGES. SITTER CONTINUED TO MONITOR FOR SAFETY. ALL SAFETY MEASURES ARE IN PLACE. NO SCREAMING BUT CONTINUES TO GET OUT OF THE BED. [email or web address] Addendum: 03/09/22 at 0158 by Steph South LVN NO SCREAMING AND TRIES TO ATTEMPT GET OUT OF THE BED. [id number]
[2022-03-09] MEDS: HALOPERIDOL IM 5 MG/ML VIAL IM PRN (00:53)
[2022-03-09] MEDS: HYDRAGUARD CREAM TP SCH ×2 (01:20→13:23)
--- NOTE | 2022-03-09 01:53 | NUR ---
PATIENT WAS GIVEN AN IM OF 3MG OF HALDOL AN HOUR AGO. PATIENT CONTINUES TO BE AGITATED AND KICK HIS LEGS AGGRESSIVELY AGAINST THE BED. NO NOTED YELLING AT THIS TIME. SOFT WRIST RESTRAINS REMAINS PER MD ORDERS. ALL SAFETY MEASURES ARE IN PLACE. SITTER AVAILABLE TO ENSURE SAFETY FROM HARM TO HIMSELF. [email or web address]
[2022-03-09 02:13] VITALS: BP 108/76
--- NOTE | 2022-03-09 03:32 | NUR ---
PATIENT REMAINS IN BED AWAKE. NO NOTED LABORED BREATHING. PATIENT REMAINS DRY AND CLEAN. PATIENT CONTINUES ON SOFT WRIST RESTRAINTS WITH 15 MIN RELEASE FOR REPOSITIONING, CHANGES AND HYDRATION. ALL SAFETY MEASURES ARE IN PLACE. SITTER AVAILABLE FOR SAFETY. [email or web address]
[2022-03-09] MEDS: FOAM DRESSING TP SCH (05:10)
[2022-03-09] MEDS: HYDROCOLLOID DRESSING TP SCH (05:14)
--- NOTE | 2022-03-09 07:15 | NUR ---
RECEIVED REPORT FROM MANAGER REPORTING NURSE FOR CONTINUITY OF CARE. PT ASLEEP IN BED. BREATHING SYMMETRICAL ON ROOM AIR. WITH BILATERAL SOFT WRIST RESTRAINTS. RFA 20G RUNNING 1/2NS AT 75CC/HR. 1 ON 1 SITTER PROVIDED. ALL SAFETY MEASURES IN PLACE.
--- NOTE | 2022-03-09 07:20 | NUR ---
GAVE SHIFT REPORT TO HEMA RN FOR CONTINUITY OF CARE. PATIENT REMAINS IN BED WITH BILATERAL SOFT WRIST RESTRAINTS. PATIENT CONTINUE TO KICK HIS LEGS AGAINST THE BED AND SIDE RAILS. ENDORSED WOUND CARE WAS GIVEN. [email or web address]
[2022-03-09 08:00] VITALS: BP 120/84
[2022-03-09] MEDS: BLOOD GLUCOSE MONITORING 1 DEV DEV FS SCH ×4 (08:09→21:21)
--- NOTE | 2022-03-09 09:38 | NUR ---
(03/09/22) RD FOLLOW UP COMPLETED PLEASE REFER TO NUTRITION PROGRESS NOTE UNDER CARE ACTIVITY FOR ESTIMATED NUTRITION NEEDS. RD RECOMMENDATIONS: 1. CONTINUE PUREE, HONEY THICK LIQUID DIET TOLERATED 2. CONTINUE NEPRO BID PER RD PROTOCOL 4. RD TO FOLLOW-UP 3-5 DAYS, MODERATE RISK AMAIRANI MUNOZ MS, RDN
[2022-03-09] MEDS: CLONIDINE HYDROCHLORIDE 0.1 MG TAB PO SCH (09:40)
[2022-03-09] MEDS: QUEtiapine FUMARATE 100 MG TAB PO SCH ×2 (09:40→21:26)
[2022-03-09] MEDS: MENTHOL/ZINC OXIDE 113 GM TUBE TP SCH (09:40)
[2022-03-09] MEDS: LACTULOSE 20 GM/30 ML UDC NG SCH (09:41)
--- NOTE | 2022-03-09 09:41 | NUR ---
SCHEDULED AM MEDICATIONS GIVEN ORDERED. PT ATE 1 CUP APPLESAUCE.
[2022-03-09] MEDS: NACL 0.45% 1,000 ML IV SCH (11:45)
--- NOTE | 2022-03-09 13:27 | NUR ---
PT REFUSED TO EAT AT THIS TIME, STATED LATER. EXPLAINED IMPORTANCE OF FOOD AND NUTRIENTS IN THE BODY. WILL CONTINUE TO OFFER.
[2022-03-09 14:48] LABS: BASOPHILS # (AUTO) 0.1 K/uL (0.00-0.22); BASOPHILS % (AUTO) 0.9 % (0.0-2.0); EOSINOPHILS # (AUTO) 0.6 K/uL (0-0.4); EOSINOPHILS % (AUTO) 5.7 % (0.0-4.0); HEMATOCRIT 39.6 % (36-52); HEMOGLOBIN 13.3 g/dL (12.0-18.0); LYMPHOCYTES # (AUTO) 1.1 K/uL (2.0-11.5); MEAN CORPUSCULAR HEMOGLOBIN 31 pg (27-31); MEAN CORPUSCULAR HGB CONC 34 g/dL (33-37); MEAN CORPUSCULAR VOLUME 92.7 fL (80-94); MONOCYTES # (AUTO) 0.9 K/uL (0.8-1.0); MONOCYTES % (AUTO) 9.5 % (1.7-9.3); NEUTROPHILS # (AUTO) 7.3 K/uL (1.8-7.7); NEUTROPHILS % (AUTO) 72.9 % (42.2-75.2); PLATELET COUNT (AUTO) 230 K/uL (140-450); RED BLOOD CELL COUNT(AUTO) 4.28 MIL/uL (4.20-6.10); RED CELL DISTRIBUTION WIDTH 13.6 % (11.6-13.7)
[2022-03-09 15:10] LABS: ANION GAP 11.6 (8-16); CREATININE 1.3 mg/dL (0.6-1.3); POTASSIUM 3.6 mmol/L (3.5-5.1)
[2022-03-09 16:00] VITALS: BP 149/87
--- NOTE | 2022-03-09 16:45 | NUR ---
PT AWAKE IN BED WITH CONFUSION. BREATHING SYMMETRICAL ON ROOM AIR. DENIES PAIN AT THIS TIME. 1 ON 1 SITTER.
--- NOTE | 2022-03-09 19:28 | NUR ---
ENDORSED PT TO MANAGER DENTAL NURSE. NO CHANGE IN PT'S CONDITION
--- NOTE | 2022-03-09 19:30 | NUR ---
RECEIVED ENDORSEMENT FROM HEMA RN FOR CONTINUITY OF CARE. PATIENT IS STABLE AND AWAKE. A&OX1. ON ROOM AIR WITH NO APPARENT S/SX OF ACUTE DISTRESS. RESPIRATIONS EVEN AND UNLABORED WITH NO APPARENT S/SX OF ACUTE DISTRESS. PATIENT IS ON BEDREST. PATIENT HAS AN IV TO THE RFA 20G INTACT/PATENT WITH 1/2-NS INFUSING AT 75 ML/HOUR. 1:1 SITTER PRESENT. PLAN OF CARE AND WHITE COMMUNICATION BOARD UPDATED. ALL SAFETY MEASURES IN PLACE. BED IN LOW/LOCKED POSITION. CALL LIGHT WITHIN REACH. WILL CONTINUE TO MONITOR.
[2022-03-09 20:00] VITALS: BP 141/106
[2022-03-09] MEDS: chlorproMAZINE 25 MG/ML AMP IM PRN (20:59)
[2022-03-09] MEDS: PROMETHAZINE 25 MG/ML VIAL IM PRN (20:59)
--- NOTE | 2022-03-09 21:15 | NUR ---
ADMINISTERED SCHEDULED PO MEDICATIONS PER MD ORDER. TOLERATED WELL. DENIES PAIN. RESPIRATIONS EVEN AND UNLABORED WITH NO APPARENT S/SX OF ACUTE DISTRESS. ALL SAFETY MEASURES IN PLACE. BED IN LOW/LOCKED POSITION. BILATERAL SOFT WRIST RESTRAINTS IN PLACE. SITTER PRESENT. WILL CONTINUE TO MONITOR.
[2022-03-09] MEDS: INSULIN LANTUS 100 UNITS/ML 10 ML VIAL SUBQ SCH (21:21)
[2022-03-09] MEDS: OLANZapine 2.5 MG TAB PO SCH (21:26)
--- NOTE | 2022-03-09 22:00 | NUR ---
Patient's Plan of Care was discussed and reviewed with MATERIAL LIAISON: BRADY SUÁREZ
--- NOTE | 2022-03-09 23:15 | NUR ---
PATIENT IS STABLE AND ASLEEP. CHEST IS RISING AND FALLING EVENLY. RESPIRATIONS EVEN AND UNLABORED WITH NO APPARENT S/SX OF ACUTE DISTRESS. BILATERAL SOFT WRIST RESTRAINTS IN PLACE. 1:1 SITTER PRESENT. ALL SAFETY MEASURES IN PLACE. BED IN LOW/LOCKED POSITION. WILL CONTINUE TO MONITOR.
[2022-03-10] MEDS: PROMETHAZINE 25 MG/ML VIAL IM PRN ×3 (01:00→21:01)
[2022-03-10] MEDS: chlorproMAZINE 25 MG/ML AMP IM PRN ×3 (01:00→21:01)
--- NOTE | 2022-03-10 01:00 | NUR ---
PATIENT IS RESTLESS AND CONTINUES TO KICK LEGS IN MULTIPLE DIRECTIONS. ADMINISTERED IM PRN MEDICATION PER MD ORDER. TOLERATED WELL. FLACC 0. RESPIRATIONS EVEN AND UNLABORED WITH NO APPARENT S/SX OF ACUTE DISTRESS. ALL SAFETY MEASURES IN PLACE. BILATERAL SOFT WRIST RESTRAINTS IN PLACE. 1:1 SITTER PRESENT. BED IN LOW/LOCKED POSITION. WILL CONTINUE TO MONITOR.
[2022-03-10] MEDS: HYDRAGUARD CREAM TP SCH ×2 (01:02→13:08)
[2022-03-10] MEDS: NACL 0.45% 1,000 ML IV SCH ×2 (01:05→14:35)
--- NOTE | 2022-03-10 03:15 | NUR ---
CHANGED PATIENT'S IVF BAG. TOLERATED WELL. PATIENT IS STABLE AND ASLEEP. CHEST IS RISING AND FALLING EVENLY. RESPIRATIONS EVEN AND UNLABORED WITH NO APPARENT S/SX OF ACUTE DISTRESS. ALL SAFETY MEASURES IN PLACE. BED IN LOW/LOCKED POSITION. 1:1 SITTER PRESENT. WILL CONTINUE TO MONITOR.
[2022-03-10 04:00] VITALS: BP 139/86
--- NOTE | 2022-03-10 05:15 | NUR ---
CLEANED AND CHANGED PATIENT WITH EDUARDO DUVALL. TOLERATED WELL. FLACC 0. RESPIRATIONS EVEN AND UNLABORED WITH NO APPARENT S/SX OF ACUTE DISTRESS. ALL NEEDS MET. ALL SAFETY MEASURES IN PLACE. BED IN LOW/LOCKED POSITION. 1:1 SITTER PRESENT. WILL CONTINUE TO MONITOR.
[2022-03-10] MEDS: BLOOD GLUCOSE MONITORING 1 DEV DEV FS SCH ×4 (06:35→21:12)
[2022-03-10 06:59] LABS: BASOPHILS # (AUTO) 0.1 K/uL (0.00-0.22); EOSINOPHILS # (AUTO) 0.5 K/uL (0-0.4); EOSINOPHILS % (AUTO) 5.7 % (0.0-4.0); HEMOGLOBIN 13.5 g/dL (12.0-18.0); LYMPHOCYTES # (AUTO) 1.5 K/uL (2.0-11.5); LYMPHOCYTES % (AUTO) 15.8 % (20.5-51.1); MEAN CORPUSCULAR HEMOGLOBIN 31 pg (27-31); MEAN CORPUSCULAR HGB CONC 34 g/dL (33-37); MEAN CORPUSCULAR VOLUME 92.8 fL (80-94); MONOCYTES % (AUTO) 10.3 % (1.7-9.3); NEUTROPHILS # (AUTO) 6.4 K/uL (1.8-7.7); NEUTROPHILS % (AUTO) 67.2 % (42.2-75.2); PLATELET COUNT (AUTO) 226 K/uL (140-450); RED BLOOD CELL COUNT(AUTO) 4.31 MIL/uL (4.20-6.10); RED CELL DISTRIBUTION WIDTH 13.6 % (11.6-13.7); WHITE BLOOD COUNT (AUTO) 9.5 K/uL (4.8-10.8)
--- NOTE | 2022-03-10 07:10 | NUR ---
ENDORSED PATIENT TO TINA GARRIDO FOR CONTINUITY OF CARE. PATIENT IS STABLE.
--- NOTE | 2022-03-10 07:15 | NUR ---
RECEIVED REPORT FROM WIRE PREPARATION WORKER NURSE FOR CONTINUITY OF CARE. PT ASLEEP IN BED, BREATHING SYMMETRICAL ON ROOM AIR. FLACC O. SITTER PROVIDED. RFA 20G WITH NS AT 75CC/HR. BED ON LOW POSITION. ALL SAFETY MEASURES IN PLACE.
[2022-03-10 07:20] LABS: ALBUMIN 2.5 g/dL (3.4-5.0); ANION GAP 10.5 (8-16); CREATININE 1.2 mg/dL (0.6-1.3); POTASSIUM 3.5 mmol/L (3.5-5.1); TOTAL BILIRUBIN 0.5 mg/dL (0.0-1.0)
[2022-03-10 08:00] VITALS: BP 114/72
[2022-03-10] MEDS: QUEtiapine FUMARATE 100 MG TAB PO SCH ×3 (08:33→21:12)
[2022-03-10] MEDS: LACTULOSE 20 GM/30 ML UDC NG SCH (08:33)
[2022-03-10] MEDS: MENTHOL/ZINC OXIDE 113 GM TUBE TP SCH (08:41)
--- NOTE | 2022-03-10 08:41 | NUR ---
SCHEDULED AM MEDICATIONS GIVEN ORDERED.
--- NOTE | 2022-03-10 10:45 | NUR ---
PT ASLEEP IN BED. BREATHING SYMMETRICAL ON ROOM AIR. FLACC O. PT WITH SITTER.
--- NOTE | 2022-03-10 14:28 | NUR ---
PT SLEEPING IN BED. BREATHING SYMMETRICAL ON ROOM AIR. FLACC O. WITH 1 ON 1 SITTER, BED PLACED ON LOW POSITION.
[2022-03-10 16:00] VITALS: BP 126/83
--- NOTE | 2022-03-10 17:46 | NUR ---
FLACC O. PT IN BED, DROWSY. BREATHING SYMMETRICAL ON ROOM AIR SATING 93-94% SITTER PROVIDED. BED ON LOW POSITION. IV LINE INTACT AND PATENT.
--- NOTE | 2022-03-10 19:00 | NUR ---
ENDORSED PT TO BREAD WRAPPING MACHINE FEEDER NURSE. PT IN STABLE CONDITION
--- NOTE | 2022-03-10 19:10 | NUR ---
RECEIVED ENDORSEMENT FROM TINA GARRIDO FOR CONTINUITY OF CARE. PATIENT IS STABLE, DROWSY AND RESTING. A&OX1. ON ROOM AIR WITH NO APPARENT S/SX OF ACUTE DISTRESS. FLACC=0. RESPIRATIONS EVEN AND UNLABORED WITH NO APPARENT S/SX OF ACUTE DISTRESS. PATIENT IS ON BEDREST. PATIENT HAS AN IV TO THE RFA 20G INTACT/PATENT WITH 1/2-NS INFUSING AT 75 ML/HOUR. 1:1 SITTER PRESENT. PLAN OF CARE AND WHITE COMMUNICATION BOARD UPDATED. ALL SAFETY MEASURES IN PLACE. BED IN LOW/LOCKED POSITION. CALL LIGHT WITHIN REACH. WILL CONTINUE TO MONITOR.
--- NOTE | 2022-03-10 19:30 | NUR ---
Patient's Plan of Care was discussed and reviewed with ANTONELLA: BRADY
[2022-03-10] MEDS: OLANZapine 2.5 MG TAB PO SCH ×2 (21:00→21:12)
--- NOTE | 2022-03-10 21:10 | NUR ---
ACCUCHECK COMPLETED AND COVERAGE NEEDED PER MD ORDER. TOLERATED WELL. PO MEDICATIONS NON-ADMINISTERED D/T PATIENT'S LETHARGY. WILL CONTINUE TO MONITOR FOR S/SX OF ACUTE DISTRESS. FLACC=0. RESPIRATIONS EVEN AND UNLABORED. CLEANED AND CHANGED PATIENT. CLEANSED MOUTH WITH ORAL SWAB AND PROVIDED LIP MOISTURIZER. TOLERATED WELL. WHITE COMMUNICATION BOARD UPDATED. ALL SAFETY MEASURES IN PLACE. BED IN LOW/LOCKED POSITION. 1:1 SITTER PRESENT. WILL CONTINUE TO MONITOR.
[2022-03-10] MEDS: INSULIN LANTUS 100 UNITS/ML 10 ML VIAL SUBQ SCH (21:12)
[2022-03-10] MEDS: INSULIN LISPRO SLIDING SCALE 100 UNITS/ML VIAL SUBQ PRN (21:14)
--- NOTE | 2022-03-10 23:10 | NUR ---
PATIENT IS STABLE AND ASLEEP. CHEST IS RISING AND FALLING EVENLY. RESPIRATIONS EVEN AND UNLABORED WITH NO APPARENT S/SX OF ACUTE DISTRESS. WHITE COMMUNICATION BOARD UPDATED. ALL SAFETY MEASURES IN PLACE. BED IN LOW/LOCKED POSITION. BILATERAL SOFT WRIST RESTRAINTS IN PLACE. 1:1 SITTER PRESENT. WILL CONTINUE TO MONITOR.
[2022-03-11] MEDS: chlorproMAZINE 25 MG/ML AMP IM PRN ×4 (01:03→15:10)
[2022-03-11] MEDS: PROMETHAZINE 25 MG/ML VIAL IM PRN ×4 (01:03→15:09)
[2022-03-11] MEDS: HYDRAGUARD CREAM TP SCH ×2 (01:04→13:25)
--- NOTE | 2022-03-11 01:10 | NUR ---
PATIENT IS RESTLESS AND CONTINUES TO KICK LEGS IN DIFFERENT DIRECTIONS. PRN IM MEDICATION ADMINISTERED PER MD ORDER. TOLERATED WELL. FLACC 0. RESPIRATIONS EVEN AND UNLABORED WITH NO APPARENT S/SX OF ACUTE DISTRESS. WHITE COMMUNICATION BOARD UPDATED. ALL SAFETY MEASURES IN PLACE. BED IN LOW/LOCKED POSITION. BILATERAL SOFT WRIST RESTRAINTS IN PLACE. 1:1 SITTER PRESENT. WILL CONTINUE TO MONITOR.
--- NOTE | 2022-03-11 03:10 | NUR ---
PATIENT WOKE UP AND REQUESTED TO DRINK WATER. PREPARED HONEY-THICKENED WATER PER PATIENT REQUEST. TOLERATED WELL. FLACC=0. RESPIRATIONS EVEN AND UNLABORED WITH NO APPARENT S/SX OF ACUTE DISTRESS. WHITE COMMUNICATION BOARD UPDATED. ALL SAFETY MEASURES IN PLACE. BED IN LOW/LOCKED POSITION. 1:1 SITTER PRESENT. WILL CONTINUE TO MONITOR.
[2022-03-11 04:00] VITALS: BP 109/89
[2022-03-11] MEDS: NACL 0.45% 1,000 ML IV SCH ×3 (04:08→23:37)
--- NOTE | 2022-03-11 05:10 | NUR ---
PATIENT IS RESTLESS AND CONTINUES TO KICK LEGS IN DIFFERENT DIRECTIONS. PRN IM MEDICATION ADMINISTERED PER MD ORDER. CLEANED AND CHANGED PATIENT. TOLERATED WELL. FLACC 0. RESPIRATIONS EVEN AND UNLABORED WITH NO APPARENT S/SX OF ACUTE DISTRESS. ALL NEEDS MET. WHITE COMMUNICATION BOARD UPDATED. ALL SAFETY MEASURES IN PLACE. BED IN LOW/LOCKED POSITION. BILATERAL SOFT WRIST RESTRAINTS IN PLACE. 1:1 SITTER PRESENT. WILL CONTINUE TO MONITOR.
[2022-03-11] MEDS: BLOOD GLUCOSE MONITORING 1 DEV DEV FS SCH ×4 (06:31→22:00)
[2022-03-11 06:52] LABS: BASOPHILS # (AUTO) 0.1 K/uL (0.00-0.22); BASOPHILS % (AUTO) 0.4 % (0.0-2.0); EOSINOPHILS # (AUTO) 0.2 K/uL (0-0.4); HEMATOCRIT 38.4 % (36-52); HEMOGLOBIN 12.9 g/dL (12.0-18.0); LYMPHOCYTES # (AUTO) 1.2 K/uL (2.0-11.5); LYMPHOCYTES % (AUTO) 7.4 % (20.5-51.1); MEAN CORPUSCULAR HEMOGLOBIN 31 pg (27-31); MEAN CORPUSCULAR HGB CONC 34 g/dL (33-37); MEAN CORPUSCULAR VOLUME 93.1 fL (80-94); MONOCYTES # (AUTO) 1.3 K/uL (0.8-1.0); NEUTROPHILS # (AUTO) 13.7 K/uL (1.8-7.7); NEUTROPHILS % (AUTO) 83.2 % (42.2-75.2); PLATELET COUNT (AUTO) 213 K/uL (140-450); RED BLOOD CELL COUNT(AUTO) 4.13 MIL/uL (4.20-6.10); RED CELL DISTRIBUTION WIDTH 13.3 % (11.6-13.7); WHITE BLOOD COUNT (AUTO) 16.4 K/uL (4.8-10.8)
--- NOTE | 2022-03-11 07:10 | NUR ---
ENDORSED PATIENT TO ANTONELLA ROGERS FOR CONTINUITY OF CARE. PATIENT IS STABLE.
--- NOTE | 2022-03-11 07:11 | NUR ---
RECEIVED REPORT FROM SEASONAL RETAIL MERCHANDISER NURSE FOR CONTINUITY OF CARE. PATIENT AWAKE AND ON WRIST RESTRAIN SKIN ASSES NO INJURY NOTED.
[2022-03-11 07:24] LABS: ALBUMIN 2.4 g/dL (3.4-5.0); CARBON DIOXIDE 23.6 mmol/L (21-32); CREATININE 1.3 mg/dL (0.6-1.3); POTASSIUM 3.6 mmol/L (3.5-5.1); TOTAL BILIRUBIN 0.6 mg/dL (0.0-1.0)
--- NOTE | 2022-03-11 07:40 | NUR ---
PATIENT SOFT WRIST RESTRAIN ORDER AND INFORM DR. PATTERSON HE ORDER TO RENEW ORDER FOR SOFT WRIST RESTRAIN ORDER NOTED AND CARRIED OUT.
[2022-03-11] MEDS: MENTHOL/ZINC OXIDE 113 GM TUBE TP SCH (09:00)
[2022-03-11] MEDS: LACTULOSE 20 GM/30 ML UDC NG SCH (10:05)
[2022-03-11] MEDS: QUEtiapine FUMARATE 100 MG TAB PO SCH ×2 (10:05→22:42)
--- NOTE | 2022-03-11 10:07 | NUR ---
ADMINISTERED ALL SCHEDULED MORNING MEDS. GAVE PRN THORACINE AND PHENERGAN. EDUCATE PT ABOUT MEDS. ASSESS PTS WRISTS ON RESTRAINTS FOR SKIN INTEGRITY. NO SIGNS OF REDNESS, SWELLING AND PAIN. STILL ON ONE ON ONE SITTER. CALL LIGHT WITHIN REACH. SAFETY PREACUTIONS IN PLACE. WILL CONTINUE TO MONITOR.
--- NOTE | 2022-03-11 12:40 | NUR ---
BLOOD GLUCOSE CHECK DONE. NO COVERAGE NEEDED.
--- NOTE | 2022-03-11 13:30 | NUR ---
PATIENT REFUSED TO EAT LUNCH. IV HYDRATION ON . ALL SAFETY MEASURE IN PLACE.
--- NOTE | 2022-03-11 15:17 | NUR ---
GIVEN THORAZINE AND PHENERGAN VIA IM.
[2022-03-11 16:00] VITALS: BP 118/71
--- NOTE | 2022-03-11 17:30 | NUR ---
PATIENT ASLEEP ON ONE ON ONE SITTER . ONE WRIST ON RESTRAIN PATIENT CALM AND NO DISTRESS AT THIS TIME.
--- NOTE | 2022-03-11 19:21 | NUR ---
GAVE REPORT TO FIRMWARE ARCHITECT NURSE FOR CONTINUITY OF CARE.
--- NOTE | 2022-03-11 20:51 | NUR ---
MOTHER OT THE PT. NAME : SULTANA TEL NO.:[phone]
[2022-03-11] MEDS: INSULIN LANTUS 100 UNITS/ML 10 ML VIAL SUBQ SCH (21:00)
[2022-03-11] MEDS: OLANZapine 2.5 MG TAB PO SCH (22:42)
[2022-03-12] VITALS: BP 133/83
[2022-03-12] MEDS: HYDRAGUARD CREAM TP SCH ×2 (01:00→13:27)
[2022-03-12] MEDS: chlorproMAZINE 25 MG/ML AMP IM PRN (05:18)
[2022-03-12] MEDS: PROMETHAZINE 25 MG/ML VIAL IM PRN (05:18)
--- NOTE | 2022-03-12 05:18 | NUR ---
BP 134/83 , NC 113 , RR 20 , O2 SAT 94 % , 98.1 F - SHOWING AGITATIONS - WILL MEDICATE .
[2022-03-12] MEDS: BLOOD GLUCOSE MONITORING 1 DEV DEV FS SCH ×4 (06:28→21:27)
--- NOTE | 2022-03-12 07:24 | NUR ---
RECEIVED PT FROM MACHINIST CLASS B NURSE FOR CONTINUITY OF CARE. BREATHING IS EVEN AND UNLABORED AT ROOM AIR. NO SIGNS OF DISTRESS NOTED. A&O TO NAME. PT IS CALM AND SLEEPING AT THIS TIME. WRIST RESTRAINT WAS RELEASED. SKIN INTEGRITY AND CIRCULATION IS NORMAL. CALL LIGHT WITHIN REACH. SAFETY MEASURES IN PLACE. 1:1 SITTER CONTINUED.
--- NOTE | 2022-03-12 07:24 | NUR ---
ENDORSED - PT - STABLE , AWAKEABLE ON 1 :1 SITTER - ENDORSE TO GEOLOGICAL SURVEY FIELD ASSISTANTRosana CASTAÑEDA ABOUT PT'S MOTHER CONCERN RE : ADL , NUTRITION - THE PT'S MOTHER WANTS TO TALKS EITHER ZEN HATFIELD OR HAYDE ABOUT THE PT'S PRESENT TXT . I TOLD TO THE GEOLOGICAL SURVEY FIELD ASSISTANT THE TEL OF PT'S MOM IS AT THE NURSES NOTES OF MINE - LVNS VERBALIZES UNDERSTANDING . PER ENDORSED TO ME LAST NIGHT BY BRADY BERMAN - TRY TO NOT TO RENEW THE RESTRAINT - SINCE PT IS SEDATED AND ON 1:1 - ENDORSED . AM LVNS I'M NOT RENEW THE RESTRAINT ORDER - FOR FURTHER OBSERVATION . GEOLOGICAL SURVEY FIELD ASSISTANTRosana CASTAÑEDA VERBALIZES UNDERSTANDING .
[2022-03-12 08:00] VITALS: BP 143/95
--- NOTE | 2022-03-12 08:15 | NUR ---
LOGGER TRIED TO FEED PATIENT BUT NOT SWALLOWING TOO SLEEPY.
--- NOTE | 2022-03-12 09:15 | NUR ---
I TIRED TO FEED PATIENT ONLY ATE FEW SPOON FUL AND 1/2 CAN OF MILK AND 1/2 GLASS OF WATER . PATIENT TOO DROWSY.
[2022-03-12] MEDS: LACTULOSE 20 GM/30 ML UDC NG SCH (09:48)
[2022-03-12] MEDS: QUEtiapine FUMARATE 100 MG TAB PO SCH ×2 (09:48→21:32)
[2022-03-12] MEDS: FOAM DRESSING TP SCH (09:57)
[2022-03-12] MEDS: MENTHOL/ZINC OXIDE 113 GM TUBE TP SCH (09:57)
[2022-03-12] MEDS: HYDROCOLLOID DRESSING TP SCH (09:57)
--- NOTE | 2022-03-12 09:58 | NUR ---
PATIENT GIVEN ALL DUE MEDICATION AND GIVEN MORE NEPRO AND WATER BUT REFUSED TO EAT THE REST OF
--- NOTE | 2022-03-12 13:37 | NUR ---
SPOH Addendum: 03/12/22 at 1338 by Donald Santos LVN ERROR
--- NOTE | 2022-03-12 13:39 | NUR ---
SPOKE TO DR ALBARRAN REGARDING PTs WBC TRENDING UP FROM 9.5 TO 16.4, NO FEVER, NO FOUL ODOR ON URINE, NO COUGH. DR ORDERED ROCEPHIN 1 GRAM IV DAILY. PT CONTINUED ON 1:1 SITTER WITH NO RESTRAINT. PT IS CALM AND ASLEEP. NO SIGNS OF DISTRESS NOTED.
--- NOTE | 2022-03-12 15:35 | NUR ---
ASSISTED CRYPTOGRAPHIC CENTER SPECIALIST IN CLEANING THE PT. CALMOSEPTINE APPLIED. DRESSING CHANGE ON LEFT FOOT DONE. IV SITE ON RFA WAS LEAKING. NEW IV SITE PLACED ON L-WRIST G24. PT TOLERATED WELL.
[2022-03-12 16:00] VITALS: BP 138/77
--- NOTE | 2022-03-12 17:01 | NUR ---
BS CHECK DONE. BS 139. NO NEED FOR INSULIN COVERAGE. PT IS CALM AND SLEEPING. NO SIGNS OF DISTRESS. BREATHING EVEN AND UNLABORED. WITH 1:1 SITTER, NO WRIST RESTRAINT. SAFETY MEASURES IN PLACE.
--- NOTE | 2022-03-12 18:48 | NUR ---
ASSISTED HIDE EXAMINER IN CLEANING THE PT. ROSEANN AKERS, PTs NAIKA AT BEDSIDE. PT IS CALM THROUGHOUT SHIFT. CONTINUED WITH 1:1 SITTER WITH NO WRIST RESTRAINT IN PLACE. CALLED PTs MOTHER, SULTANA FORD AND SECURE APPROVAL TO ADD ROSEANN ANOTHER POINT OF CONTACT. MOTHER AGREED TO ADD ROSEANN. PER ROSEANN, MS SULTANA FORD IS REQUESTING A PHONE CALL FROM PTs DR FOR UPDATES AND CLARIFICATION REGARDING MEDICATIONS GIVEN TO THE PT. LEFT MESSAGE TO DR. ALBARRAN. WILL ENDORSE TO TRAVELING PLANT OPERATOR NURSE.
--- NOTE | 2022-03-12 19:20 | NUR ---
PATIENT ON STABLE CONDITION. GIRLFRIEND AT BED SIDE. GAVE REPORT TO CORRESPONDENCE REPRESENTATIVE NURSE FOR CONTINUITY OF CARE.
[2022-03-12] MEDS: INSULIN LANTUS 100 UNITS/ML 10 ML VIAL SUBQ SCH (21:00)
[2022-03-12] MEDS: OLANZapine 2.5 MG TAB PO SCH (21:32)
[2022-03-13] VITALS: BP 142/76
--- NOTE | 2022-03-13 | NUR ---
SLEEPING , BUT EASILY AWAKAEABLE BY SOUNDS - O2 SAT WNL .
[2022-03-13] MEDS: HYDRAGUARD CREAM TP SCH ×2 (01:00→13:00)
--- NOTE | 2022-03-13 02:00 | NUR ---
ON 1 :1 SITTER ,NO RESTRAINT
--- NOTE | 2022-03-13 04:00 | NUR ---
SLEEPING BUT EASILY AROUSABLE BY SOUNDS - WILL CONT. TO MONITOR , O2 SAT WNL . 1:1 SITTER .
[2022-03-13] MEDS: NACL 0.45% 1,000 ML IV SCH ×3 (04:34→22:25)
--- NOTE | 2022-03-13 05:55 | NUR ---
C/O BACK ACHE AND LEG PAIN - WILL REFER TO DOCTOR LAB HEAD .
--- NOTE | 2022-03-13 06:00 | NUR ---
STILL NO RESPOND FROM DR. VITAL - WILL ENDORSE .
--- NOTE | 2022-03-13 07:30 | NUR ---
ENDORSED - PT - STABLE - ON 1: 1 SITTER . Addendum: 03/13/22 at 0840 by Morena Harper RN I REFERRED PT TO DR VITAL AT 05:54 -RE : PAIN MED - BUT NO RESPONSE YET - ENDORSE TO WILLIAM WILDER AND EAN WILDER TO FF UP - THEY BOTH VERBALIZES UNDERSTANDING .
[2022-03-13] MEDS: BLOOD GLUCOSE MONITORING 1 DEV DEV FS SCH ×4 (08:01→21:00)
[2022-03-13] MEDS: LACTULOSE 20 GM/30 ML UDC NG SCH (09:42)
[2022-03-13] MEDS: QUEtiapine FUMARATE 100 MG TAB PO SCH ×2 (09:42→21:16)
[2022-03-13] MEDS: MENTHOL/ZINC OXIDE 113 GM TUBE TP SCH (09:44)
[2022-03-13] MEDS ORDERED: METF-938 PO (10:17)
[2022-03-13] MEDS ORDERED: QUET100T44 PO (10:17)
[2022-03-13] MEDS ORDERED: OLAN2.5T40 PO (10:17)
--- NOTE | 2022-03-13 11:10 | NUR ---
P.T. NOTES P.T. RE EVAL COMPLETED; REFER TO EVAL FOR DETAILS.
--- NOTE | 2022-03-13 14:00 | NUR ---
AMMUNITION STORAGE SUPERINTENDENT TRIED TO REACH FAMILY NO ANSWER. PATIENT CURRENTLY HAS A DISCHARGE ORDER.
[2022-03-13 19:46] VITALS: BP 120/77
--- NOTE | 2022-03-13 19:47 | NUR ---
RECEIVED PATIENT LAYING IN BED AGITATED, PATIENT LUNGS CLEAR AND ABDOMEN NORMAL ACTIVE. SKIN WARM, PATIENT WITH LEFT LOWER LEG SKIN TEAR. ALERT AND ORIENTED X1, BED AND LOWEST POSITION AND LOCKED, CALL LIGHT WITHIN REACH, PATIENT CURRENTLY HAS A 1 ON 1 SITTER AT BEDSIDE.
--- NOTE | 2022-03-13 19:49 | NUR ---
CLOSING NO CHANGES AT THIS TIME, PATIENT AWAKE AND CONFUSED, PATIENT NAPS THROUGHOUT THE DAY.
--- NOTE | 2022-03-13 20:45 | NUR ---
PT WAS FOUND ON THE FLOOR;BODY EXAM DONE,NO BRUISES NOTED,NO COMPLAIN OF PAIN. INFORMED DR. CORTEZ AND ORDERED HIP/PELVIS XRAY.
[2022-03-13] MEDS: INSULIN LANTUS 100 UNITS/ML 10 ML VIAL SUBQ SCH (21:00)
[2022-03-13] MEDS: OLANZapine 2.5 MG TAB PO SCH (21:16)
[2022-03-14] VITALS: BP 141/73
--- NOTE | 2022-03-14 00:25 | NUR ---
RT HIP/PELVIS SHOWS NO FRACTURE OR DISLOCATION,BILATERAL HIPS AND PELVIS ARE INTACT
--- NOTE | 2022-03-14 01:45 | NUR ---
PATIENT IS AGITATED, PULLED OUT HIS IV, STILL TRYING TO GET OUT OF BED.HALDOL 3MG IV ADMINISTERED.RESPIRATIONS EVEN AND UNLABORED.NO DISTRESS NOTED
--- NOTE | 2022-03-14 04:00 | NUR ---
PATIENT ASLEEP AT THIS TIME, RESPIRATIONS EVEN AND UNLABORED, NO DISTRESS NOTED. ALL SAFETY MEASURES IN PLACE
--- NOTE | 2022-03-14 06:00 | NUR ---
PATIENT IS AWAKE,NO AGITATIONS NOTED,BREATHING EVEN AND UNLABORED
[2022-03-14] MEDS: BLOOD GLUCOSE MONITORING 1 DEV DEV FS SCH ×4 (06:35→20:57)
--- NOTE | 2022-03-14 07:30 | NUR ---
endorsed pt to am nurse for continuity of care. pt is stable.
[2022-03-14 08:00] VITALS: BP 130/88
--- NOTE | 2022-03-14 08:06 | NUR ---
RECEIVED PATIENT, AOX2 ALERT TO NAME AND PLACE, CONFUSED TO DATE/TIME. SPEECH IS UNCLEAR, MUMBLING. ABLE TO FOLLOW COMMANDS. MOVES ALL EXTREMITIES. IV FLUIDS INFUSING. REORIENTED PATIENT TO SITUATION. 1:1 SITTER AT BEDSIDE. PATIENT WAS ABLE TO EAT 50% OF BREAKFAST TOLERATED WELL.
[2022-03-14] MEDS: LACTULOSE 20 GM/30 ML UDC NG SCH (09:04)
[2022-03-14] MEDS: QUEtiapine FUMARATE 100 MG TAB PO SCH ×2 (09:05→20:45)
--- NOTE | 2022-03-14 11:36 | NUR ---
PATIENT SLEEPING AT THIS TIME, 1:1 FOR CLOSE MONITORING AT BEDSIDE. IV FLUIDS INFUSING.
[2022-03-14] MEDS: NACL 0.45% 1,000 ML IV SCH (12:08)
--- NOTE | 2022-03-14 15:30 | NUR ---
ASSISTED PATIENT TO WHEELCHAIR. 1:1 SITTER ASSISTED PATIENT AROUND NURSING STATION, FREQUENT REORIENTATION PROVIDED TO PT. CALM AND COOPERATIVE AT THIS TIME.
--- NOTE | 2022-03-14 15:40 | NUR ---
03/14/22 RD FOLLOW UP COMPLETED PLEASE REFER TO NUTRITION ASSESSMENT UNDER CARE ACTIVITY FOR ESTIMATED NUTRITIONAL NEEDS. 1. CONTINUE PUREE, HONEY THICK LIQUID DIET TOLERATED 2. CONTINUE NEPRO BID PER RD PROTOCOL 3. RD TO FOLLOW-UP 3-5 DAYS, MODERATE RISK REVIEWED BY MIGDALIA FINNEY RD
[2022-03-14 16:00] VITALS: BP 112/63
[2022-03-14] MEDS: INSULIN LISPRO SLIDING SCALE 100 UNITS/ML VIAL SUBQ PRN (16:40)
--- NOTE | 2022-03-14 18:52 | NUR ---
PATIENT IS SITTING UP IN WHEELCHAIR, FAMILY MEMBER HELPING HIM SHAVE AND WITH OTHER ADLS. WILL ENDORSE TO NIGHT RN.
--- NOTE | 2022-03-14 19:10 | NUR ---
RECEIVED PATIENT FROM [facility] FOR CONTINUITY OF CARE. PATIENT IS ON ROOM AIR BREATHING WITH NO RESPIRATORY DISCOMFORT OR COMPLAINTS. PATIENT IS VERBAL, ALERT ORIENT X 3 SITTING IN WHEELCHAIR AT BEDSIDE. PATIENT DENIES ANY PAIN AT THIS TIME. PATIENT HAS GIRLFRIEND AT BEDSIDE. PATIENT WAS REMINDED TO USE THE CALL LIGHT WITHIN REACH FOR ALL ASSISTANCE AND NEEDS. BED WAS POSITIONED IN THE LOWEST LEVEL. SIDE RAILS UP X 2 FOR PATIENT TO SELF ADJUST. SITTER AT BEDSIDE BECAUSE OF RECENT FALL. NURSING WILL CHECK IN ON PATIENT DURING THE NIGHT FOR PAIN COLLECT DATA FOR MEDICATION MANAGEMENT, EVENING MEDICATION, AND QUALITY OF CARE. [email or web address]
--- NOTE | 2022-03-14 20:34 | NUR ---
REVIEWED PLAN OF CARE WITH EDEN ZHAO LVN.
[2022-03-14] MEDS: OLANZapine 2.5 MG TAB PO SCH (20:45)
[2022-03-14] MEDS: INSULIN LANTUS 100 UNITS/ML 10 ML VIAL SUBQ SCH (21:06)
--- NOTE | 2022-03-14 21:10 | NUR ---
PATIENT WAS GIVEN ALL EVENING MEDICATION. PATIENT HAD MEDICATION CRUSHED MIX WITH NOT KIMMIE APPLE SAUCE AND TOLERATED IT WELL. PATIENT HOB WAS ELEVATED TO PREVENT ASPIRATION. PATIENT IS ABLE TO PARROT NURSING AND HAD MOMENT OF CLARITY TO ANSWER QUESTIONS OF PAIN. PATIENT DENIES ANY PAIN/DISCOMFORT AT THIS TIME. PATIENT ATTEMPT TO GET OUT FROM BED TO GO TO THE RESTROOM AND IS REMINDED THAT HIS BALANCE IS OFF AND CAN FALL. NURSING WILL CHANGE HIM IF HE WETS HIMSELF. IV REMAINS INTACT. SIDE RAILS UP X 4 FOR SAFETY. SITTER REMAINS AT BED SIDE FOR SAFETY. PATIENT REMAINS CLEAN AND DRY. [email or web address]
[2022-03-14] MEDS: HALOPERIDOL IM 5 MG/ML VIAL IM PRN (22:32)
--- NOTE | 2022-03-14 23:10 | NUR ---
PATIENT IN BED ASLEEP WITHOUT ANY S/SX OF PAIN/DISCOMFORT. CHEST IS RISING AND FALLING WITHOUT ACUTE DISTRESS. PATIENT REMAINS CLEAN AND DRY. SITTER AT BEDSIDE. NO NOTED IVPB TO ENDORSE TO RN AT THIS TIME. [email or web address]
[2022-03-15] MEDS: NACL 0.45% 1,000 ML IV SCH ×2 (01:05→15:19)
--- NOTE | 2022-03-15 01:10 | NUR ---
PATIENT IS AWAKE SLOWLY KICKING HIS LEGS AROUND. PATIENT WILL ATTEMPT TO ASSIST IN REPOSITIONING THEN ATTEMPT TO GET OUT OF THE BED. REDIRECTIONS AND PATIENT WILL COMPLY. NOTED SMEARS OF BOWEL MOVEMENT BUT NO BOWEL MOVEMENT AT THIS TIME. NO S/SX OF PAIN/DISCOMFORT. CHEST IS RISING AND FALLING WITHOUT ACUTE DISTRESS. PATIENT REMAIN CLEAN AND DRY. NO NOTED REDNESS TO SACRAL OR RECTAL AREA. SITTER AT BED SIDE FOR SAFETY. [email or web address]
--- NOTE | 2022-03-15 03:10 | NUR ---
PATIENT IS IN BED BUT ASLEEP WITH LEGS TO HIS CHEST. PATIENT REMAIN WITH A SITTER AT BED SIDE FOR SAFETY WITH SIDE RAILS X 4. ABLE TO OBSERVE CHEST RISING AND FALLING WITHOUT DISTRESS. BED AT ITS LOWEST LEVEL. [email or web address]
[2022-03-15 04:00] VITALS: BP 148/73
--- NOTE | 2022-03-15 05:01 | NUR ---
PATIENT IN BED ASLEEP. NO NOTED RESTLESS BEHAVIOR AT THIS TIME. SITTER AT BED SIDE FOR SAFETY. SIDE RAILS UP X 4. IV SITE ON RIGHT FOREARM INTACT WITH FLUIDS RUNNING. [email or web address]
[2022-03-15] MEDS: BLOOD GLUCOSE MONITORING 1 DEV DEV FS SCH ×4 (06:27→20:04)
--- NOTE | 2022-03-15 07:12 | NUR ---
PATIENT WAS IN BED ASLEEP. ENDORSED TO KEN BERMAN FOR CONTINUITY OF CARE.
--- NOTE | 2022-03-15 07:13 | NUR ---
RECEIVED PT FROM BOILING HOUSE OILER NURSE FOR CONTINUITY OF CARE. PT IS SLEEPING AT THIS TIME. RESPIRATIONS EVEN AND UNLABORED AT ROOM AIR. NO DISTRESS NOTED. IV SITE RFA G20 INFUSING D5NS AT 75 ML/HR. IV SITE INTACT, NO REDNESS, NO SWELLING. NO RESTRAINT, ON 1:1 SITTER. CALL LIGHT WITHIN REACH. SAFETY MEASURES IN PLACE. WILL CONTINUE TO MONITOR. Addendum: 03/15/22 at 0753 by Donald Santos LVN CORRECTION FOR IV HYDRATION
--- NOTE | 2022-03-15 07:13 | NUR ---
RECEIVED PT FROM COMPUTER SYSTEMS ARCHITECT NURSE FOR CONTINUITY OF CARE. PT IS SLEEPING AT THIS TIME. RESPIRATIONS EVEN AND UNLABORED AT ROOM AIR. NO DISTRESS NOTED. IV SITE RFA G20 INFUSING 0.45% NS AT 75 ML/HR. IV SITE INTACT, NO REDNESS, NO SWELLING. NO RESTRAINT, ON 1:1 SITTER. CALL LIGHT WITHIN REACH. SAFETY MEASURES IN PLACE. WILL CONTINUE TO MONITOR.
[2022-03-15] MEDS: LACTULOSE 20 GM/30 ML UDC NG SCH (09:27)
[2022-03-15] MEDS: QUEtiapine FUMARATE 100 MG TAB PO SCH ×2 (09:27→20:05)
[2022-03-15] MEDS: FOAM DRESSING TP SCH (09:37)
--- NOTE | 2022-03-15 09:37 | NUR ---
ADMINISTERED ALL SCHEDULED MORNING MEDS. PT TOLERATED WELL.
[2022-03-15] MEDS: HYDROCOLLOID DRESSING TP SCH (09:38)
--- NOTE | 2022-03-15 10:15 | NUR ---
PT COMPLAINT OF LUGO. NO PRN ORDER FOR PAIN. INFORMED DR ALBARRAN. AWAITING FOR RESPONSE.
--- NOTE | 2022-03-15 12:25 | NUR ---
ABLE TO GET AN ORDER FOR TYLENOL. PT REFUSED TAKING IT. VERBALIZED NOT NEEDING IT AT THIS TIME.
--- NOTE | 2022-03-15 14:00 | NUR ---
RN ADMINISTERED IV ROCEPHIN.
--- NOTE | 2022-03-15 15:32 | NUR ---
DID PT ROUNDS, PT IS SLEEPING AT THIS TIME. NO DISTRESS NOTED. WITH CONTINUED 1:1 SITTER. CALL LIGHT WITHIN REACH. SAFETY PRECAUTIONS IN PLACE.
[2022-03-15 16:00] VITALS: BP 150/73
--- NOTE | 2022-03-15 16:58 | NUR ---
GLUCOSE CHECK DONE. BS-109. NO INSULIN COVERAGE NEEDED. PT IS CALM. AGREEING TO NURSE THAT HE NEEDS TO EAT WELL AND GET BETTER SO HE CAN GO HOME.
--- NOTE | 2022-03-15 18:44 | NUR ---
PT LYING IN BED WITH GF AT BEDSIDE. CHEST RISING AND FALLING WITHOUT ACUTE DISTRESS. STILL WITH 1:1 SITTER. SAFETY MEASURES IN PLACE. CALL LIGHT WITHIN REACH.
--- NOTE | 2022-03-15 19:10 | NUR ---
ENDORSED PT TO FINGERPRINTER NURSE FOR CONTINUITY OF CARE. ALL NEEDS MET THROUGHOUT SHIFT. PT IS STABLE.
--- NOTE | 2022-03-15 19:12 | NUR ---
RECEIVED REPORT FROM DAY SHIFT RN CHERELLE FOR CONTINUITY OF CARE. PT IS STABLE IN BED. 1:1 SITTER IN ROOM AT BEDSIDE. AX1 TO NAME. CAN SPEAK BUT IS CONFUSED. QUIET AT THIS TIME. DENIES PAIN. RR EVEN AND UNLABORED WITH EQUAL CHEST RISE. IV SITE RFA 20G INFUSING IVF 1/2 NS@75CC/HR. CALL LIGHT WITHIN REACH. WILL CONTINUE TO MONITOR.
[2022-03-15] MEDS: OLANZapine 2.5 MG TAB PO SCH (20:06)
[2022-03-15] MEDS: INSULIN LANTUS 100 UNITS/ML 10 ML VIAL SUBQ SCH (20:08)
--- NOTE | 2022-03-15 21:00 | NUR ---
HS MEDS GIVEN CRUSHED IN PUDDING. TOLERATED WELL. VSS. BS= 98 NO INSULIN COVERAGE NEEDED. LANTUS INSULIN 8 UNITS GIVEN SCHEDULED. 1:1 SITTER REMAINS AT BEDSIDE. NO ACUTE DISTRESS NOTED. WILL CONTINUE WITH FREQ ROUNDS.
[2022-03-16] VITALS: BP 135/91
[2022-03-16] MEDS: NACL 0.45% 1,000 ML IV SCH ×2 (01:20→17:05)
--- NOTE | 2022-03-16 02:45 | NUR ---
PT ALERT ABLE TO VERBALIZE NEEDS. C/O L SIDE BACK PAIN 6/10 RECEIVED TYLENOL 650 MG CRUSHED IN APPLESAUCE WITH THICKENED LIQUIDS. TOLERATED WELL. ALL SAFETY MEASURES IN PLACE. WILL CONTINUE TO MONITOR.
[2022-03-16] MEDS: ACETAMINOPHEN 325 MG TAB PO PRN ×2 (02:54→09:02)
--- NOTE | 2022-03-16 03:45 | NUR ---
PT QUIET NOW. PAIN NOW A 3. ALL SAFETY MEASURES IN PLACE. 1:1 SITTER REMAINS AT BEDSIDE. CONTINUE TO MONITOR.
[2022-03-16] MEDS: BLOOD GLUCOSE MONITORING 1 DEV DEV FS SCH ×4 (06:40→21:00)
--- NOTE | 2022-03-16 07:00 | NUR ---
ENDORSED REPORT TO DAY SHIFT RN FOR CONTINUITY OF CARE. PT STABLE.
[2022-03-16 08:00] VITALS: BP 130/94
[2022-03-16] MEDS: LACTULOSE 20 GM/30 ML UDC NG SCH (08:55)
[2022-03-16] MEDS: QUEtiapine FUMARATE 100 MG TAB PO SCH ×2 (08:55→21:00)
[2022-03-16 16:00] VITALS: BP 105/57
[2022-03-16] MEDS: INSULIN LANTUS 100 UNITS/ML 10 ML VIAL SUBQ SCH (21:00)
[2022-03-16] MEDS: OLANZapine 2.5 MG TAB PO SCH (21:00)
--- NOTE | 2022-03-16 21:30 | NUR ---
FOUND PT TRYING TO WALK - SWAYING GAIT - FALL RISK - HE TRYING TO TOUCH , HIT THE SITTER TO GET OUT TO HIS WAY - WE TRYING TO CONVINCE HIM TO GO BACK TO BED AND WE EXPLAI TO HIM HE IS FALL RISK DUE TO UNSTABLE GAIT , BUT PT IS VERY UNCOOPERATIVE , SHOUTING , USING BAD WORDS , HE SAID HE WANTS TO GO HOME - SHOWING ANXIETY , AGITATION , COMBATIVE - WILL MEDICATE . ON 1 :1 SITTER .
--- NOTE | 2022-03-16 21:30 | NUR ---
PT IS UNCOOPERATIVE - REFUSING TO TAKE ORAL MEDS , AND HGT , HE TRYING TO HAVE AN ARGUMENT W/ ME . - I EXPLAIN TO HIM THE IMPORTANCE OG TAKING MEDICATION BUT HE STILL REFUSED - WILL TRY TO CONVINCE HIM LATTER . Addendum: 03/17/22 at 0448 by Morena Harper RN BP 130/72 , TN 68 , RR 18 , O2 SAT 96 % - COMBATIVE , AGITATES - WILL GIVE HALDOL IM ORDERED .
[2022-03-16] MEDS: HALOPERIDOL IM 5 MG/ML VIAL IM PRN (21:53)
--- NOTE | 2022-03-16 22:08 | NUR ---
TALKED ELASTIC TAPE INSERTER TO CONVINCE THE PT'S MOM TO STAY HERE EVEN OVER NIGHT BECAUSE PT IS JUST GOT HALDOL IM - TO MONITOR THE THE MED. REACTION AND ADVERSE EFFECTS .
--- NOTE | 2022-03-16 22:30 | NUR ---
PER PT'S MOM - SHE IS 81 Y/O , SICK AND WEAK - IF LOU WILL DISCHARGE TO HOME SHE CAN'T TAKE CARE LOU BECAUSE OF HER SITUATION , IN ADDITION SOMETIMES LOU'S BEHAVIOUR IS SEEMS QUESTIONABLE TO HER AND SHE WORRYING ONEDAY LOU MAY LOST , IN ADDITION , SHE WANTS LOU TO HAVE RE EVALUATION OF SWALOWING TEST BECAUSE ACCORDING TO HER MOM LOU DOES NOT LIKE THE FOOD CONSISTENCY - THAT'S WHY HE DON'T LIKE TO EAT MOST OF THE TIME . PLUS PER REQUEST OF PT'S MOTHER IF LOU WILL DISCHARGE HE CAN ABLE TO WALK INDEPENDENTLY - WILL ENDORSE THIS TO MORNING NURSE - SO THAT AM NURSE WILL ADDRESS THE PT'S MOTHER CONCERN TO PROPER AUTHORITY .
[2022-03-17] VITALS: BP 110/75
--- NOTE | 2022-03-17 02:00 | NUR ---
ROUNDS , SLEEPING , BUR EASILY AROUSABLE BY SOUNDS - ON 1 : 1 SITTER , WILL CONT. TO MONITOR .
--- NOTE | 2022-03-17 04:00 | NUR ---
SLEEPING , CHEST RISE AND FALL EQUALY . WILL CONT. TO MONITOR .ON 1:1 SITTER .
--- NOTE | 2022-03-17 06:00 | NUR ---
I EXPLAIN TO LOU WHY HE HAVE TO GET IVF - LOU SAID OK - BUT LET ME REST FOR AWHILE AND I'M STILL SLEEPY . BP 130/77 ID [id number] , RR 20 , O2 SAT 97 %. - WILL ENDORSE .
[2022-03-17] MEDS: NACL 0.45% 1,000 ML IV SCH (06:25)
[2022-03-17] MEDS: BLOOD GLUCOSE MONITORING 1 DEV DEV FS SCH ×2 (06:51→12:23)
--- NOTE | 2022-03-17 07:00 | NUR ---
WALKS TO THE BATHROOM W/ ASSIST - VOIDED FREELY .
--- NOTE | 2022-03-17 07:25 | NUR ---
ENDORSED - PT - STABLE . I ENDORSE TO LEXI RN - TO TELL TO THE DOCTOR ABOUT PT'S MON REQUEST AND CONCERN - SO THAT THE DRJaime WILL MAKE A PLAN APPROpriately , i endorse to nurse lexi - DON'T FORGET TO GIVE AN UPDATE TO PT'S MOM BERFORE HER AM DUTY BECAUSE MOM WANTS TO HEAR AN UPDATE TODAY - NURSE LEXI VERBALIZES UNDERSTANDING . I TOLD TO LEXI PER LOU REQUEST HE WANTS TO EAT BREAKFAST FIRST BEFORE THE IVF RE INSERTION . LEXI GOT PT'S BREAKFAST REQUEST .
[2022-03-17 08:00] VITALS: BP 150/83
[2022-03-17] MEDS: QUEtiapine FUMARATE 100 MG TAB PO SCH (08:48)
--- NOTE | 2022-03-17 09:07 | NUR ---
RECEIVED ENDORSEMENT FROM PM SHIFT NURSE THAT PATIENT IS AWAKE WITH NO IV ACCESS AT TIME. PLACE PIV RAC 22G PATIENT. WILL F/U FOR REQUESTING ST EVALUATION & SW SERVICE PER PATIENT'S MOTHER REQUEST.
--- NOTE | 2022-03-17 10:32 | NUR ---
ATTEMPTED TO REACH ROSEANN, PT NEXT OF KIN, FOR DC PLAN. PT HAS DISCHARGE ORDER AND STAFF WAS INFORMED FAMILY WOULD BULL GANG SUPERVISOR AND TAKE PT HOME. PT FAMILY MEMBER SULTANA TOLD NURSE TO HAVE PT EAT REGULAR DIET BEFORE RETURNING HOME, NURSE INFORMED SULTANA THAT SHE CANNOT CHANGE DIET WITHOUT MD ORDERS. PT IS ON PUREE DIET, TOLERATING WELL
[2022-03-17 13:27] VITALS: BP 150/83
[2022-03-17 13:56] VITALS: BP 150/83
[2022-03-17] MEDS: ACETAMINOPHEN 325 MG TAB PO PRN (14:43)
--- NOTE | 2022-03-17 15:59 | NUR ---
SIGNIFICANT OTHER IS HERE TO DAY HABILITATION SUPERVISOR PATIENT HOME. CONSENT SIGNED, IV & ARM BAND REMOVED, PATIENT STABLE.
== END 2022-03-17 15:55 | disposition home or self-care (01) | DRG 720 ==
LOC: MED 13:16 → MMU 02-05 01:12 → MIC 02-05 02:43 → MTU 02-15 16:10
PROVIDERS: ADMIT Hospitalist; ATTEND Hospitalist
PROC: 5A1945Z Respiratory Ventilation, 24-96 Consecutive Hours (ICD-10-PCS; principal; 2022-02-05)
PROC: 0BH17EZ Insertion of Endotracheal Airway into Trachea, Via Natural or Artificial Opening (ICD-10-PCS; 2022-02-05)
PROC: 5A09357 Assistance with Respiratory Ventilation, Less than 24 Consecutive Hours, Continuous Positive Airway Pressure (ICD-10-PCS; 2022-02-10)
DX: A41.9 Sepsis, unspecified organism (principal); J96.01 Acute respiratory failure with hypoxia; J69.0 Pneumonitis due to inhalation of food and vomit; G92.9 Unspecified toxic encephalopathy; N17.9 Acute kidney failure, unspecified; G93.1 Anoxic brain damage, not elsewhere classified; M62.82 Rhabdomyolysis; F19.90 Other psychoactive substance use, unspecified, uncomplicated; F15.10 Other stimulant abuse, uncomplicated; M19.90 Unspecified osteoarthritis, unspecified site; R74.01 Elevation of levels of liver transaminase levels; Z20.822 Contact with and (suspected) exposure to COVID-19; E66.01 Morbid (severe) obesity due to excess calories; E11.65 Type 2 diabetes mellitus with hyperglycemia; N39.0 Urinary tract infection, site not specified; Z68.37 Body mass index [BMI] 37.0-37.9, adult
CPT/HCPCS: 31500; 36415; 36600; 70450; 71045; 80048; 80053; 80202; 80305; 81001; 82140; 82550; 82553; 82565; 82803; 82948; 83036; 83605; 83735; 84478; 84484; 85025; 87040; 87070; 87081; 87086; 87205; 92526; 93005; 93971; 94003; 94660; 96365; 96372; 96375; 96376; 97110; 97112; 97116; 97163-GP; 97164; 97530; 99291; C9113; G0480; J0360; J0696; J1200; J1630; J1644; J1650; J1815; J1940; J2060; J2250; J2270; J2405; J2543; J2550; J2704; J3010; J3230; J3370; J3475; J3486; J3490; J7060; Q0092